=== PATIENT | male | born 1970 | race Caucasian/White ===

== ENCOUNTER 2023-02-04 13:26 | Inpatient (IN) ==
[2023-02-04 13:47] VITALS: BMI 23.3
[2023-02-04] MEDS ORDERED: TORADOL 30 MG VIAL ONE (13:53)
[2023-02-04] MEDS ORDERED: TYLENOL 500 MG TAB EXTRA STRENGTH PO ONE (13:53)
[2023-02-04] MEDS ORDERED: NS 1,000 ML IV 1,000 ML ONE ×2 (13:54→19:08)
--- NOTE | 2023-02-04 14:07 | DR.GENAD ---
HPI Time Seen Time Seen by Provider: 02/04/23 14:04 PCP Primary Care Physician: Christofer HPI Comment HPI Comment: PATIENT IS 52YR OLD MALE WITH HISTORY OF DIABETES AND THROAT CANCER IN ER WITH GENERALIZED BODYACHES, FEVER AND VOMITING SINCE YESTERDAY. HISTORY OF DIABETIC FOOT ULCER ON LEFT 5TH TOE AND FOOT. 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 AREA INFECTED AND RED. Complaint/Symptoms Chief Complaint Doctors Comments: FEVER, CHILLS, BODYACHES AND VOMITING SINCE YESTERDAY. Chief Complaint:: Woke this morning with headache, generalzed aches and body pain head to toe, vomited twice yesterday and once today. Has a trach secondary hx of throat CA COVID-19 Coronavirus risk:travel/contact w/high risk person: No Has patient experienced Coronavirus symptoms: Yes Coronavirus symptoms experienced: Fever Nurses notes reviewed Nurses Notes Review: Yes Source History Provided: Patient and Family Member Mode of Arrival Mode of Arrival: Wheelchair Timing Onset of Chief Complaint: 02/03/23 PMH PMH Past Medical History: Yes Past Medical History: Diabetes, Dyslipidemia and Hypertension Past Medical History Comment: History of Throat CA with trach in place Past Surgical History: Yes Surgical History: Ortho Surgery Past Surgical History Comment: trach Family History History of Family Medical Conditions: Yes Family Medical History: Diabetes Mellitus, Cancer, Coronary Artery Disease and Hypertension Social History Does any household member use tobacco: No Alcohol Use: None Do you use any recreational Drugs:: No Lives With: Spouse Lives Where: Home Travel Risk Coronavirus risk:travel/contact w/high risk person: No Has patient experienced Coronavirus symptoms: Yes Coronavirus symptoms experienced: Fever Infectious screening In the last 2 months have you had wt loss of >10#?: NO Have you had fever, night sweats or hemotysis?: No Have you traveled outside the country in the last 6 months?: No Isolation: Standard ROS Review of Systems Constitutional: Chills, Fever, Weakness and Fatigue Eyes: No Symptoms Reported ENTM: Nose Congestion; negative Nose Discharge Respiratoy: Moist Cough; negative Short of Breath or Wheezing Cardiovascular: No Symptoms Reported; negative Chest Pain Gastrointestinal/Abdominal: No Symptoms Reported, Nausea and Vomiting; negative Abdominal Pain or Diarrhea Genitourinary: No Symptoms Reported; negative Dysuria or Frequency Neurological: Headache and Weakness; negative Dizziness Musculoskeletal: Back Pain (CHRONIC LOWER BACK PAIN BUT WORSE TODAY.) and Muscle Pain Integumentary: Wound (DIABETIC FOOT ULCER LEFT 5TH TOE AND FOOT.) Hematologic/Lymphatic: No Symptoms Reported; negative Easy Bruising Endocrine: No Symptoms Reported; negative Increased Thirst or Increased Urine Psychiatric: No Symptoms Reported All Other Systems: Reviewed and Negative PE Vital Signs Vitals: Temperature 98.3 F Pulse Rate [Brachial] 82 Pulse Rate 92 Respiratory Rate 18 Blood Pressure [Left Arm] 168/96 Blood Pressure 99/57 O2 Sat by Pulse Oximetry 98 General Limitations: No Limitations General Appearance: Alert and In No Apparent Distress Head Head Exam: Normal Inspection and Atraumatic Eyes Eye exam: Normal Appearance; negative Scleral Icterus or Conjunctival Injection ENT ENT Exam: Normal Exam, Normal Oropharynx, Normal External Ear Exam, TM's Normal Bilaterally and Other (USES Moni CONTROL SYSTEM FOR COMMUNICATION.) External Ear Exam: Normal External Inspection; negative Mastoid Tenderness TM/Canal Exam: Bilateral: Normal Nose Exam: Normal Nose Exam Mouth Exam: Normal Inspection Throat Exam: negative Tonsillar Erythema, Tonsillomegaly or Tonsillar Exudate Neck Neck Exam: Normal Inspection and Trachea Midline; negative Tenderness Chest Chest Inspection: Normal Inspection and Symmetric Chest Wall Rise; negative Tenderness Respiratory Respiratory Exam: Normal Lung Sounds Bilat; negative Accessory Muscle Use, Chest Wall Tenderness or Respiratory Distress Respiratory Exam: Bilateral: Rhonchi Cardiovascular Cardiovascular Exam: Regular Rate, Normal Rhythm and Normal Heart Sounds; negative Systolic Murmur or Diastolic Murmur Abdominal Exam Abdominal Exam: Normal Inspection, Normal Bowel Sounds and Soft; negative Tenderness Extremities Extremities Exam: Tenderness (INFECTED DIATETIC FOOT ULCER LLE.) Back Back Exam: Normal Inspection; negative (R) CVA Tenderness or (L) CVA Tenderness Neurologic Neurological Exam: Alert and Oriented X3; negative Motor Sensory Deficit Psychiatric Psychiatric Exam: Normal Affect Skin Skin Exam: Erythema and Other (DIABETIC FOOT ULCER, LT AND INFECTED.) MDM Additional Information Additional Information Obtained From: Old Records Differential Diagnosis Differential Diagnosis: DIABETIC FOOT ULCER, CELLULITIS, FEVER, UTI. COURSE Treatment Treatment: SEE ORDERS DONE WHILE PATIENT WAS IN ER. ROR Labs Reviewed Laboratory Results Reviewed?: Yes Result Diagrams: 02/10/23 05:42 02/10/23 05:42 Laboratory: 02/06/23 11:38 Foot - Left Wound Gram Stain - Final 02/06/23 11:38 Foot - Left Wound Culture - Final Staphylococcus Aureus 02/04/23 14:19 Foot - Left Wound Gram Stain - Final 02/04/23 14:19 Foot - Left Wound Culture - Final Staphylococcus Aureus Acinetobacter Baumanii/Haemoly 02/04/23 14:12 Blood Blood Culture - Final Staphylococcus Aureus 02/04/23 14:00 Blood Blood Culture - Final Staphylococcus Aureus WBC 3.2 X10^3/uL (3.6-10.0) L 02/07/23 05:34 RBC 3.96 X10^6/uL (4.7-6.0) L 02/07/23 05:34 Hgb 11.8 g/dL (13.5-18.0) L 02/07/23 05:34 Hct 33.9 % (42.0-54.0) L 02/07/23 05:34 MCV 85.6 fL (80.0-100.0) 02/07/23 05:34 MCH 29.8 pg (27.0-34.0) 02/07/23 05:34 MCHC 34.8 g/dL (33.0-35.0) 02/07/23 05:34 RDW 13.0 % (11.6-16.5) 02/07/23 05:34 Plt Count 224 X10^3/uL (150.0-450.0) 02/07/23 05:34 Plt Count Comment Adequate (ADEQUATE) 02/04/23 14:12 MPV 7.2 fL (7.4-11.0) L 02/07/23 05:34 Neut % (Auto) 59.1 % (42.0-75.0) 02/07/23 05:34 Lymph % (Auto) 21.4 % (21.0-51.0) 02/07/23 05:34 [place] % (Auto) 14.1 % (0.0-13.0) H 02/07/23 05:34 Eos % (Auto) 4.0 % (0.9-2.9) H 02/07/23 05:34 Baso % (Auto) 1.4 % (0.2-1.0) H 02/07/23 05:34 Neut # (Auto) 1.9 x10^3/uL (2.2-4.8) L 02/07/23 05:34 Lymph # (Auto) 0.7 X10^3/uL (1.3-2.9) L 02/07/23 05:34 [place] # (Auto) 0.5 x10^3/uL (0.3-0.8) 02/07/23 05:34 Eos # (Auto) 0.1 x10^3/uL (0.0-0.2) 02/07/23 05:34 Baso # (Auto) 0.0 X10^3/uL (0.0-0.1) 02/07/23 05:34 Absolute Nucleated RBC 0.1 /100WBC 02/07/23 05:34 Total Counted 100 02/04/23 14:12 Neutrophils % (Manual) 95 % (39-76) H 02/04/23 14:12 Lymphocytes % (Manual) 3 % (13-43) L 02/04/23 14:12 Monocytes % (Manual) 2 % (4-9) L 02/04/23 14:12 Plt Morphology Comment Normal (NORMAL) 02/04/23 14:12 RBC Morphology Normal (NORMAL) 02/04/23 14:12 Sodium 137 mmol/L (136-145) 02/07/23 05:34 Corrected Sodium 139 mmol/L (136-145) 02/07/23 05:34 Potassium 3.9 mmol/L (3.5-5.1) 02/07/23 05:34 Chloride 99 mmol/L (98-107) 02/07/23 05:34 Carbon Dioxide 33.2 mmol/L (21-32) H 02/07/23 05:34 BUN 7 mg/dL (7-18) 02/07/23 05:34 Creatinine 0.84 mg/dL (0.70-1.30) 02/07/23 05:34 Est GFR (MDRD) Af Amer > 60 (>60) 02/07/23 05:34 Est GFR (MDRD) Non-Af > 60 (>60) 02/07/23 05:34 Glucose 187 mg/dL (65-99) H 02/07/23 05:34 POC Glucose (mg/dL) 176 mg/dL (65-99) H 02/07/23 05:10 Lactic Acid 1.0 mmol/L (0.4-2.0) 02/05/23 04:42 Calcium 8.6 mg/dL (8.5-10.1) 02/07/23 05:34 Corrected Calcium 9.7 mg/dL (8.5-10.1) 02/07/23 05:34 Total Bilirubin 0.30 mg/dL (0.2-1.0) 02/07/23 05:34 AST 18 Units/L (15-37) 02/07/23 05:34 ALT 23 Units/L (12-78) 02/07/23 05:34 Alkaline Phosphatase 99 Units/L (46-116) 02/07/23 05:34 Total Protein 6.1 g/dL (6.4-8.2) L 02/07/23 05:34 Albumin 2.6 g/dL (3.4-5.0) L 02/07/23 05:34 Globulin 3.5 g/dL (2.5-4.5) 02/07/23 05:34 Albumin/Globulin Ratio 0.7 Ratio (1.1-2.1) L 02/07/23 05:34 Specimen Type Clean catch urine 02/04/23 14:36 Urine Color Yellow (YELLOW) 02/04/23 14:36 Urine Appearance Clear (CLEAR) 02/04/23 14:36 Urine pH 5.0 (5.0 - 8.0) 02/04/23 14:36 Ur Specific [place] 1.015 (1.000-1.030) 02/04/23 14:36 Urine Protein 2+ (NEGATIVE) 02/04/23 14:36 Urine Glucose (UA) 4+ (NEGATIVE) 02/04/23 14:36 Urine Ketones 4+ (NEGATIVE) 02/04/23 14:36 Urine Blood 2+ (NEGATIVE) 02/04/23 14:36 Urine Nitrite Negative (NEGATIVE) 02/04/23 14:36 Urine Bilirubin Negative (NEGATIVE) 02/04/23 14:36 Urine Urobilinogen Normal (NORMAL) 02/04/23 14:36 Ur Leukocyte Esterase Negative (NEGATIVE) 02/04/23 14:36 Urine RBC None seen /HPF (0-3) 02/04/23 14:36 Urine WBC None seen /HPF (0-5) 02/04/23 14:36 Ur Squamous Epith Cells Negative /HPF (NEGATIVE) 02/04/23 14:36 Urine Bacteria Negative /HPF (NEGATIVE) 02/04/23 14:36 Ur Culture Indicated? No/not indicated 02/04/23 14:36 Acetone, Semi-Quant Small (NEGATIVE) H 02/04/23 14:12 SARS-CoV-2 (PCR) Negative (NEGATIVE) 02/04/23 14:49 Influenza Type A (PCR) Negative (NEGATIVE) 02/04/23 14:49 Influenza Type B (PCR) Negative (NEGATIVE) 02/04/23 14:49 RSV (PCR) Negative (NEGATIVE) 02/04/23 14:49 Tissue Pathology See comment. 02/06/23 11:38 XRAY XRAY Interpreted by: Radiologist (REPORT NOTED) and Self Opioid Opioid Risk Tool Age (Tylor box if 16-45): No History of Preadolescent Sexual Abuse: No Total: 0 Total Score Risk Category: Low Risk Copyright: Сергей ROWLAND predicting aberrant behaviors Discharge Plan Diagnosis Discharge Problem: Cellulitis, Diabetic foot ulcer, Fever in adult Discharge Plan Patient Disposition: 09 ADMITTED INPATIENT Condition: Stable
[2023-02-04] MEDS ORDERED: TYLENOL 500 MG TAB EXTRA STRENGTH PO STA (14:11)
[2023-02-04] MEDS ORDERED: NS 1,000 ML IV 1,000 ML IV ONE ×2 (14:11→14:19)
[2023-02-04] MEDS ORDERED: TORADOL 30 MG VIAL IVP ONE (14:11)
[2023-02-04 14:37] LABS: BASOPHILS % (AUTO) 0.2 % (0.2-1.0); HEMATOCRIT 41.3 % (42.0-54.0); HEMOGLOBIN 13.9 g/dL (13.5-18.0); LYMPHOCYTES # (AUTO) 0.2 X10^3/uL (1.3-2.9); LYMPHOCYTES % (AUTO) 2.1 % (21.0-51.0); MEAN CORPUSCULAR HEMOGLOBIN 29.3 pg (27.0-34.0); MEAN CORPUSCULAR HGB CONC 33.7 g/dL (33.0-35.0); MEAN PLATELET VOLUME 6.9 fL (7.4-11.0); MONOCYTES # (AUTO) 0.3 x10^3/uL (0.3-0.8); MONOCYTES % (AUTO) 3.4 % (0.0-13.0); NEUTROPHILS # (AUTO) 8.5 x10^3/uL (2.2-4.8); NEUTROPHILS % (AUTO) 94.3 % (42.0-75.0); RED BLOOD COUNT 4.75 X10^6/uL (4.7-6.0); RED CELL DISTRIBUTION WIDTH 13.2 % (11.6-16.5)
[2023-02-04 14:46] LABS: BILIRUBIN,URINE NEGATIVE (NEGATIVE); BLOOD/HEMOGLOBIN,URINE 2+ (NEGATIVE); GLUCOSE, URINE 4+ (NEGATIVE); KETONES,URINE 4+ (NEGATIVE); LEUKOCYTE ESTERASE ,URINE NEGATIVE (NEGATIVE); NITRITES,URINE NEGATIVE (NEGATIVE); PROTEIN,URINE 2+ (NEGATIVE); UROBILINOGEN,URINE NORMAL (NORMAL)
[2023-02-04 14:47] LABS: APPEARANCE,URINE CLEAR (CLEAR); COLOR,URINE YELLOW (YELLOW)
[2023-02-04 14:48] LABS: ALANINE AMINOTRANSFERASE 18 Units/L (12-78); ALBUMIN 3.7 g/dL (3.4-5.0); ALKALINE PHOSPHATASE 176 Units/L (46-116); ASPARTATE AMINO TRANSFERASE 10 Units/L (15-37); BLOOD UREA NITROGEN 16 mg/dL (7-18); CARBON DIOXIDE 25.6 mmol/L (21-32); CHLORIDE 93 mmol/L (98-107); COR NA(FOR HYPERGLY) 136 mmol/L (136-145); SODIUM 131 mmol/L (136-145); TOTAL PROTEIN 7.7 g/dL (6.4-8.2); eGFR NON BLACK RACES > 60 (>60)
[2023-02-04 14:52] LABS: BACTERIA,URINE NEGATIVE /HPF (NEGATIVE); RBC,URINE NONE SEEN /HPF (0-3); SQUAMOUS EPITHELIAL CELL,UR NEGATIVE /HPF (NEGATIVE)
[2023-02-04 15:01] LABS: PLATELET MORPHOLOGY COMMENT NORMAL (NORMAL)
[2023-02-04] MEDS ORDERED: ZOSYN VIAL 3.375 GRAMS 3.375 G in NS 100 ML IV 100 ML IV ONE (15:13)
[2023-02-04] MEDS ORDERED: ZOSYN VIAL 3.375 GRAMS IV ONE ×2 (15:16→20:32)
[2023-02-04] MEDS ORDERED: ZOFRAN INJ 4 MG VIAL IVP ONE (15:17)
[2023-02-04] MEDS ORDERED: MORPHINE SULFATE INJ 4 MG IVP ONE (15:17)
[2023-02-04] MEDS ORDERED: MORPHINE SULFATE INJ 4 MG ONE (15:24)
[2023-02-04] MEDS ORDERED: ZOFRAN INJ 4 MG VIAL ONE (15:24)
[2023-02-04] MEDS ORDERED: ZOFRAN TAB 4 MG PO PRN (17:28)
[2023-02-04] MEDS ORDERED: CLEOCIN VIAL 600 MG 600 MG in D5W 50 ML IV 50 ML IV SCH (18:00)
[2023-02-04] MEDS: NovoLIN R (or HumuLIN R) SUBCUT PRN (18:01)
[2023-02-04] MEDS: CLEOCIN 300 MG IV PREMIX 300 MG/50 ML BAG IV SCH ×2 (19:31→21:25)
[2023-02-04] MEDS ORDERED: NS 100 ML IV 100 ML ONE (20:33)
[2023-02-04] MEDS ORDERED: ZOSYN VIAL 4.5 GRAMS IV ONE (20:36)
[2023-02-04] MEDS: ZESTRIL TAB 10 MG PO SCH (20:58)
[2023-02-04] MEDS: LIPITOR TAB 10 MG PO SCH (20:58)
[2023-02-04] MEDS: SNACK - Diabetic Appropriate PO SCH (20:59)
[2023-02-04] MEDS: LANTUS SC SCH (20:59)
[2023-02-04] MEDS: ZOSYN VIAL 4.5 GRAMS 4.5 G in NS 100 ML IV + SPIKE MINIBAG* 100 ML IV SCH (21:00)
[2023-02-04] MEDS: MORPHINE SULFATE INJ 4 MG IVP PRN (21:25)
[2023-02-04] MEDS: BACTROBAN TOPICAL OINT EXT SCH (21:25)
[2023-02-04] MEDS ORDERED: CATAPRES TAB 0.1 MG PO ONE (23:49)
[2023-02-05] MEDS: NORCO 5/325 MG TAB PO PRN ×4 (00:21→20:48)
--- NOTE | 2023-02-05 00:25 | EKG ---
Test Reason : HTN Protocol Blood Pressure : */* mmHG Vent. Rate : 116 BPM Atrial Rate : 116 BPM P-R Int : 166 ms QRS Dur : 84 ms QT Int : 314 ms P-R-T Axes : 37 48 66 degrees QTc Int : 436 ms Sinus tachycardia Otherwise normal ECG No previous ECGs available Confirmed by Eladio Whittaker ([id number]) on 02/06/2023 7:42:49 AM Referred By: Confirmed By: Eladio Whittaker
[2023-02-05] MEDS ORDERED: TYLENOL 325 MG TAB PO PRN (01:15)
[2023-02-05 05:02] LABS: BASOPHILS % (AUTO) 0.6 % (0.2-1.0); EOSINOPHILS % (AUTO) 0.1 % (0.9-2.9); HEMATOCRIT 32.5 % (42.0-54.0); LYMPHOCYTES # (AUTO) 0.3 X10^3/uL (1.3-2.9); MEAN CORPUSCULAR HEMOGLOBIN 29.7 pg (27.0-34.0); MEAN CORPUSCULAR HGB CONC 34.5 g/dL (33.0-35.0); MONOCYTES # (AUTO) 0.3 x10^3/uL (0.3-0.8); MONOCYTES % (AUTO) 4.9 % (0.0-13.0); NEUTROPHILS % (AUTO) 89.4 % (42.0-75.0); RED BLOOD COUNT 3.78 X10^6/uL (4.7-6.0); WHITE BLOOD COUNT 5.6 X10^3/uL (3.6-10.0)
[2023-02-05 05:11] LABS: HEMOGLOBIN 11.2 g/dL (13.5-18.0)
[2023-02-05 05:14] LABS: ALBUMIN 2.5 g/dL (3.4-5.0); CALCIUM 7.8 mg/dL (8.5-10.1); CARBON DIOXIDE 27.3 mmol/L (21-32); CREATININE 1.63 mg/dL (0.70-1.30); TOTAL PROTEIN 5.6 g/dL (6.4-8.2)
[2023-02-05] MEDS: CLEOCIN 300 MG IV PREMIX 300 MG/50 ML BAG IV SCH ×3 (05:15→21:00)
[2023-02-05] MEDS: BACTROBAN TOPICAL OINT EXT SCH ×3 (05:16→21:42)
[2023-02-05] MEDS ORDERED: NS 100 ML IV 100 ML ONE (05:23)
[2023-02-05] MEDS: ZOSYN VIAL 4.5 GRAMS 4.5 G in NS 100 ML IV + SPIKE MINIBAG* 100 ML IV SCH (05:42)
[2023-02-05] MEDS: NovoLIN R (or HumuLIN R) SUBCUT PRN ×2 (05:42→16:38)
[2023-02-05] MEDS: ZESTRIL TAB 10 MG PO SCH ×2 (09:32→20:29)
--- NOTE | 2023-02-05 11:27 | DR.H&P ---
H&P History & Physical for Day of: H&P Date: 02/05/23 Chief Complaint Chief Complaint: Left foot pain Allergies Allergies Allergy/AdvReac Type Severity Reaction Status Date / Time vancomycin AdvReac Verified 02/04/23 15:12 History of Present Illness History of Present Illness: Pt is a 52 year old male past medical history of Diabetes mellitus, Hyperlipidemia, Hypertension, presenting with left foot pain. He reports that he has a diabetic ulcer that has been followed up with [facility]ound clinic but has not been improving and recently has been draining more. Denies fevers, chills. Labs/imaging: Wbc 5.6, Hgb 11.2, Plt 198, Na 130, K 4.8, Creatinine 1.63, Glucose 362, UA negative, Wound culture pending, XR left foot: advanced chronic changes, soft tissue swelling, no sign of osteomyelitis. Pt was started on antibiotics IV clindamycin and IV zosyn. Will consult general surgery-Dr Moreno for further evaluation. Continue current treatment and follow up labs in the morning. Past Medical History Past Medical History: Diabetes, Dyslipidemia and Hypertension Past Surgical History Surgical History: Ortho Surgery Family History Family Medical History: Cancer, [place], Heart Failure and Hypertension Social History Does patient currently use any type of tobacco product: Yes Have you used tobacco products in the last 12 months: Yes Type of Tobacco Use: Smokeless Does any household member use tobacco: No Alcohol Use: DAILY Drug Use: None Medications Home Medications: vancomycin Adverse Reaction (Verified 02/04/23 15:12) CONTINUE taking the following medications atorvastatin 10 mg tablet 1 tab PO QPM 02/04/23 [History] insulin aspart U-100 100 unit/mL (3 mL) subcutaneous pen (Novolog FlexPen U-100 Insulin aspart) See Rx Instructions .Route .COMPLEX 02/04/23 [History] insulin glargine 100 unit/mL (3 mL) subcutaneous pen (Lantus Solostar U-100 Insulin) 30 unit subcut QPM 02/04/23 [History] levothyroxine 125 mcg tablet 1 tab PO QDAY 02/04/23 [History] lisinopril 10 mg tablet 1 tab PO BID 02/04/23 [History] lisinopril 20 mg tablet 1 tab PO QDAY 02/04/23 [History] mupirocin 2 % topical ointment 1 ea topical TID 02/04/23 [History] pen needle, diabetic 31 gauge x 3/16" (Sure Comfort Pen Needle) 02/04/23 [History] pen needle, diabetic 32 gauge x 5/32" (Sure Comfort Pen Needle) 02/04/23 [History] Labs Result Diagrams: 02/05/23 04:42 02/05/23 04:42 Labs: 02/04/23 14:19 Foot - Left Wound Gram Stain - Final 02/04/23 14:19 Foot - Left Wound Culture - Preliminary Laboratory WBC 5.6 X10^3/uL (3.6-10.0) 02/05/23 04:42 RBC 3.78 X10^6/uL (4.7-6.0) L 02/05/23 04:42 Hgb 11.2 g/dL (13.5-18.0) L D 02/05/23 04:42 Hct 32.5 % (42.0-54.0) L 02/05/23 04:42 MCV 86.0 fL (80.0-100.0) 02/05/23 04:42 MCH 29.7 pg (27.0-34.0) 02/05/23 04:42 MCHC 34.5 g/dL (33.0-35.0) 02/05/23 04:42 RDW 13.0 % (11.6-16.5) 02/05/23 04:42 Plt Count 198 X10^3/uL (150.0-450.0) 02/05/23 04:42 Plt Count Comment Adequate (ADEQUATE) 02/04/23 14:12 MPV 7.0 fL (7.4-11.0) L 02/05/23 04:42 Neut % (Auto) 89.4 % (42.0-75.0) H 02/05/23 04:42 Lymph % (Auto) 5.0 % (21.0-51.0) L 02/05/23 04:42 [place] % (Auto) 4.9 % (0.0-13.0) 02/05/23 04:42 Eos % (Auto) 0.1 % (0.9-2.9) L 02/05/23 04:42 Baso % (Auto) 0.6 % (0.2-1.0) 02/05/23 04:42 Neut # (Auto) 5.0 x10^3/uL (2.2-4.8) H 02/05/23 04:42 Lymph # (Auto) 0.3 X10^3/uL (1.3-2.9) L 02/05/23 04:42 [place] # (Auto) 0.3 x10^3/uL (0.3-0.8) 02/05/23 04:42 Eos # (Auto) 0.0 x10^3/uL (0.0-0.2) 02/05/23 04:42 Baso # (Auto) 0.0 X10^3/uL (0.0-0.1) 02/05/23 04:42 Absolute Nucleated RBC 0.0 /100WBC 02/05/23 04:42 Total Counted 100 02/04/23 14:12 Neutrophils % (Manual) 95 % (39-76) H 02/04/23 14:12 Lymphocytes % (Manual) 3 % (13-43) L 02/04/23 14:12 Monocytes % (Manual) 2 % (4-9) L 02/04/23 14:12 Plt Morphology Comment Normal (NORMAL) 02/04/23 14:12 RBC Morphology Normal (NORMAL) 02/04/23 14:12 Sodium 130 mmol/L (136-145) L 02/05/23 04:42 Corrected Sodium 136 mmol/L (136-145) 02/05/23 04:42 Potassium 4.8 mmol/L (3.5-5.1) 02/05/23 04:42 Chloride 96 mmol/L (98-107) L 02/05/23 04:42 Carbon Dioxide 27.3 mmol/L (21-32) 02/05/23 04:42 BUN 24 mg/dL (7-18) H 02/05/23 04:42 Creatinine 1.63 mg/dL (0.70-1.30) H 02/05/23 04:42 Est GFR (MDRD) Af Amer 58 (>60) L 02/05/23 04:42 Est GFR (MDRD) Non-Af 48 (>60) L 02/05/23 04:42 Glucose 362 mg/dL (65-99) H 02/05/23 04:42 POC Glucose (mg/dL) 193 mg/dL (65-99) H 02/05/23 07:18 Lactic Acid 1.0 mmol/L (0.4-2.0) 02/05/23 04:42 Calcium 7.8 mg/dL (8.5-10.1) L 02/05/23 04:42 Corrected Calcium 9.0 mg/dL (8.5-10.1) 02/05/23 04:42 Total Bilirubin 0.60 mg/dL (0.2-1.0) 02/05/23 04:42 AST 15 Units/L (15-37) 02/05/23 04:42 ALT 16 Units/L (12-78) 02/05/23 04:42 Alkaline Phosphatase 119 Units/L (46-116) H 02/05/23 04:42 Total Protein 5.6 g/dL (6.4-8.2) L 02/05/23 04:42 Albumin 2.5 g/dL (3.4-5.0) L 02/05/23 04:42 Globulin 3.1 g/dL (2.5-4.5) 02/05/23 04:42 Albumin/Globulin Ratio 0.8 Ratio (1.1-2.1) L 02/05/23 04:42 Specimen Type Clean catch urine 02/04/23 14:36 Urine Color Yellow (YELLOW) 02/04/23 14:36 Urine Appearance Clear (CLEAR) 02/04/23 14:36 Urine pH 5.0 (5.0 - 8.0) 02/04/23 14:36 Ur Specific [place] 1.015 (1.000-1.030) 02/04/23 14:36 Urine Protein 2+ (NEGATIVE) 02/04/23 14:36 Urine Glucose (UA) 4+ (NEGATIVE) 02/04/23 14:36 Urine Ketones 4+ (NEGATIVE) 02/04/23 14:36 Urine Blood 2+ (NEGATIVE) 02/04/23 14:36 Urine Nitrite Negative (NEGATIVE) 02/04/23 14:36 Urine Bilirubin Negative (NEGATIVE) 02/04/23 14:36 Urine Urobilinogen Normal (NORMAL) 02/04/23 14:36 Ur Leukocyte Esterase Negative (NEGATIVE) 02/04/23 14:36 Urine RBC None seen /HPF (0-3) 02/04/23 14:36 Urine WBC None seen /HPF (0-5) 02/04/23 14:36 Ur Squamous Epith Cells Negative /HPF (NEGATIVE) 02/04/23 14:36 Urine Bacteria Negative /HPF (NEGATIVE) 02/04/23 14:36 Ur Culture Indicated? No/not indicated 02/04/23 14:36 Acetone, Semi-Quant Small (NEGATIVE) H 02/04/23 14:12 SARS-CoV-2 (PCR) Negative (NEGATIVE) 02/04/23 14:49 Influenza Type A (PCR) Negative (NEGATIVE) 02/04/23 14:49 Influenza Type B (PCR) Negative (NEGATIVE) 02/04/23 14:49 RSV (PCR) Negative (NEGATIVE) 02/04/23 14:49 Review of Systems Constitutional: No Symptoms Reported Eyes: No Symptoms Reported ENT: No Symptoms Reported Respiratory: No Symptoms Reported Cardiovascular: No Symptoms Reported Gastrointestinal: No Symptoms Reported Genitourinary: No Symptoms Reported Musculoskeletal: Foot Pain (draining wound) Skin: No Symptoms Reported Neurological: No Symptoms Reported Physical Exam Vital Signs: Temperature 98.3 F Pulse Rate [Brachial] 84 Pulse Rate 92 Respiratory Rate 18 Blood Pressure [Left Arm] 92/54 Blood Pressure 99/57 O2 Sat by Pulse Oximetry 98 Oriented: Normal Eyes: Normal Ear: Normal Nose: Normal Throat: Normal Respiratory: Clear Throughout Cardiovascular: Normal : Normal Auscultation: Bowel Sounds: Normal Palpation: Normal Tenderness: Normal Skin: Normal Musculoskeletal: Left and Foot (draining diabetic ulcer left plantar side with surrounding necrotic tissue) Psychiatric: Normal Mood Description: Calm and Appropriate Affect: Normal Speech Pattern: Clear and Appropriate Assessment/Plan (1) Diabetic ulcer of left foot: Status: Acute Plan: IV antibiotics, consult general surgery. Review H&P Reviewed: Yes Patient was examined?: Yes
[2023-02-05] MEDS: NS 1,000 ML IV 1,000 ML IV SCH (13:25)
[2023-02-05] MEDS: ZOSYN VIAL 4.5 GRAMS 4.5 G in NS 100 ML IV 100 ML IV SCH ×2 (14:25→21:42)
[2023-02-05] MEDS: SNACK - Diabetic Appropriate PO SCH (20:29)
[2023-02-05] MEDS: LIPITOR TAB 10 MG PO SCH (20:29)
[2023-02-05] MEDS: LANTUS SC SCH (20:37)
[2023-02-06] MEDS: NS 1,000 ML IV 1,000 ML IV SCH ×4 (03:05→17:24)
[2023-02-06] MEDS: CLEOCIN 300 MG IV PREMIX 300 MG/50 ML BAG IV SCH (05:00)
[2023-02-06] MEDS: BACTROBAN TOPICAL OINT EXT SCH ×4 (05:33→21:08)
[2023-02-06] MEDS: ZOSYN VIAL 4.5 GRAMS 4.5 G in NS 100 ML IV 100 ML IV SCH (05:34)
[2023-02-06 05:49] LABS: BASOPHILS % (AUTO) 0.8 % (0.2-1.0); EOSINOPHILS # (AUTO) 0.2 x10^3/uL (0.0-0.2); EOSINOPHILS % (AUTO) 5.8 % (0.9-2.9); HEMATOCRIT 33.6 % (42.0-54.0); HEMOGLOBIN 11.6 g/dL (13.5-18.0); LYMPHOCYTES # (AUTO) 0.5 X10^3/uL (1.3-2.9); LYMPHOCYTES % (AUTO) 14.8 % (21.0-51.0); MEAN CORPUSCULAR HEMOGLOBIN 29.7 pg (27.0-34.0); MEAN CORPUSCULAR HGB CONC 34.4 g/dL (33.0-35.0); MEAN CORPUSCULAR VOLUME 86.4 fL (80.0-100.0); MEAN PLATELET VOLUME 7.1 fL (7.4-11.0); MONOCYTES # (AUTO) 0.3 x10^3/uL (0.3-0.8); MONOCYTES % (AUTO) 10.1 % (0.0-13.0); NEUTROPHILS # (AUTO) 2.1 x10^3/uL (2.2-4.8); NEUTROPHILS % (AUTO) 68.5 % (42.0-75.0); RED BLOOD COUNT 3.89 X10^6/uL (4.7-6.0); RED CELL DISTRIBUTION WIDTH 13.2 % (11.6-16.5); WHITE BLOOD COUNT 3.1 X10^3/uL (3.6-10.0)
[2023-02-06 06:01] LABS: ALANINE AMINOTRANSFERASE 20 Units/L (12-78); ALBUMIN 2.4 g/dL (3.4-5.0); ALKALINE PHOSPHATASE 101 Units/L (46-116); ASPARTATE AMINO TRANSFERASE 18 Units/L (15-37); BLOOD UREA NITROGEN 13 mg/dL (7-18); CALCIUM 8.1 mg/dL (8.5-10.1); CARBON DIOXIDE 29.4 mmol/L (21-32); CHLORIDE 97 mmol/L (98-107); COR CA(FOR HYPOALB) 9.4 mg/dL (8.5-10.1); COR NA(FOR HYPERGLY) 136 mmol/L (136-145); CREATININE 1.03 mg/dL (0.70-1.30); SODIUM 132 mmol/L (136-145); TOTAL PROTEIN 5.8 g/dL (6.4-8.2); eGFR NON BLACK RACES > 60 (>60)
[2023-02-06] MEDS: ZESTRIL TAB 10 MG PO SCH ×3 (08:24→21:07)
--- NOTE | 2023-02-06 09:38 | RAD ---
HISTORYPRE OP DEBRIDEMENTSTUDYCHEST, 1 VIEWCOMPARISONNoneTECHNIQUEPA or AP view of the chestFINDINGSThe cardiac and mediastinal contours are within normal limits. The lungs are clear without focal consolidation or segmental collapse. Left costophrenic sulcus is not completely image. No visualized pleural effusion or pneumothorax.IMPRESSIONNo acute pulmonary process within the field of view.Electronically signed by: Virgil Cisneros (Feb 06, 2023 09:36:39)
--- NOTE | 2023-02-06 10:19 | RAD ---
HISTORYpain, ulcer Relevant Clinical InformationSTUDYFOOT, LEFTCOMPARISONNoneFINDINGSPrior amputation of the great toe at the 1st metatarsophalangeal articulation. Chronic appearing hammertoe deformities of digits 2 through 5. Soft tissue swelling of the distal foot. No periosteal reaction or cortical destruction.IMPRESSIONAdvanced chronic changes. Soft tissue swelling. No radiographic sign of osteomyelitis. Radiographic findings can lag clinical changes.Electronically signed by: Matt Faria (Feb 04, 2023 19:28:39)
[2023-02-06] MEDS ORDERED: ZOFRAN INJ 4 MG VIAL ONE (10:51)
[2023-02-06] MEDS ORDERED: DIPRIVAN VIAL 20 ML ONE (10:51)
[2023-02-06] MEDS ORDERED: PEPCID 20 MG VIAL ONE (10:51)
[2023-02-06] MEDS ORDERED: XYLOCAINE 2 % (PLAIN) ONE ×2 (10:51→11:18)
[2023-02-06] MEDS ORDERED: VERSED ONE (10:51)
[2023-02-06] MEDS: LEVAQUIN PREMIX IV 750 MG 750 MG/150 ML BAG IV SCH (11:00)
[2023-02-06] MEDS ORDERED: ANCEF VIAL 1 GRAM ONE (11:02)
[2023-02-06] MEDS ORDERED: NS 1,000 ML IV 1,000 ML ONE (11:02)
[2023-02-06] MEDS ORDERED: NS 100 ML IV 100 ML ONE (11:02)
[2023-02-06] MEDS ORDERED: LEVAQUIN PREMIX IV 500 MG 500 MG/100 ML BAG IV ONE (11:06)
[2023-02-06] MEDS ORDERED: BETADINE SOLN ONE (11:08)
[2023-02-06] MEDS ORDERED: POLYMYXIN B SULFATE ONE (11:08)
[2023-02-06] MEDS ORDERED: FENTANYL VIAL INJ 100 mcg ONE (11:11)
[2023-02-06] MEDS ORDERED: KETAMINE HCL ONE (11:18)
[2023-02-06] MEDS ORDERED: EPHEDRINE SULFATE INJ ONE (11:44)
[2023-02-06] MEDS: NovoLIN R (or HumuLIN R) SUBCUT PRN (16:37)
[2023-02-06] MEDS ORDERED: CATAPRES TAB 0.1 MG PO ONE (17:13)
[2023-02-06] MEDS: LIPITOR TAB 10 MG PO SCH ×2 (19:38→21:07)
[2023-02-06] MEDS: SNACK - Diabetic Appropriate PO SCH (19:54)
[2023-02-06] MEDS: LANTUS SC SCH (21:09)
[2023-02-07] MEDS: NS 1,000 ML IV 1,000 ML IV SCH ×3 (01:11→20:30)
[2023-02-07] MEDS: BACTROBAN TOPICAL OINT EXT SCH ×3 (05:17→21:52)
[2023-02-07 06:30] LABS: BASOPHILS % (AUTO) 1.4 % (0.2-1.0); EOSINOPHILS # (AUTO) 0.1 x10^3/uL (0.0-0.2); HEMATOCRIT 33.9 % (42.0-54.0); HEMOGLOBIN 11.8 g/dL (13.5-18.0); LYMPHOCYTES # (AUTO) 0.7 X10^3/uL (1.3-2.9); LYMPHOCYTES % (AUTO) 21.4 % (21.0-51.0); MEAN CORPUSCULAR HEMOGLOBIN 29.8 pg (27.0-34.0); MEAN CORPUSCULAR HGB CONC 34.8 g/dL (33.0-35.0); MEAN CORPUSCULAR VOLUME 85.6 fL (80.0-100.0); MEAN PLATELET VOLUME 7.2 fL (7.4-11.0); MONOCYTES # (AUTO) 0.5 x10^3/uL (0.3-0.8); MONOCYTES % (AUTO) 14.1 % (0.0-13.0); NEUTROPHILS # (AUTO) 1.9 x10^3/uL (2.2-4.8); NEUTROPHILS % (AUTO) 59.1 % (42.0-75.0); RED BLOOD COUNT 3.96 X10^6/uL (4.7-6.0); WHITE BLOOD COUNT 3.2 X10^3/uL (3.6-10.0)
[2023-02-07 06:42] LABS: ALANINE AMINOTRANSFERASE 23 Units/L (12-78); ALBUMIN 2.6 g/dL (3.4-5.0); ALKALINE PHOSPHATASE 99 Units/L (46-116); ASPARTATE AMINO TRANSFERASE 18 Units/L (15-37); BLOOD UREA NITROGEN 7 mg/dL (7-18); CALCIUM 8.6 mg/dL (8.5-10.1); CARBON DIOXIDE 33.2 mmol/L (21-32); CHLORIDE 99 mmol/L (98-107); COR CA(FOR HYPOALB) 9.7 mg/dL (8.5-10.1); COR NA(FOR HYPERGLY) 139 mmol/L (136-145); CREATININE 0.84 mg/dL (0.70-1.30); SODIUM 137 mmol/L (136-145); TOTAL PROTEIN 6.1 g/dL (6.4-8.2); eGFR NON BLACK RACES > 60 (>60)
[2023-02-07] MEDS: LEVAQUIN PREMIX IV 750 MG 750 MG/150 ML BAG IV SCH (09:00)
[2023-02-07] MEDS: ZESTRIL TAB 10 MG PO SCH ×2 (09:00→20:25)
[2023-02-07] MEDS: MORPHINE SULFATE INJ 4 MG IVP PRN (12:15)
[2023-02-07] MEDS: NovoLIN R (or HumuLIN R) SUBCUT PRN ×2 (12:16→17:09)
[2023-02-07] MEDS ORDERED: CATAPRES TAB 0.1 MG PO ONE (15:53)
--- NOTE | 2023-02-07 18:20 | PCM.PROG ---
Progress Note - Progress Note for Day of Date of Exam: 02/07/23 - Subjective Subjective: This is a 52-year-old male who was admitted with several medical issues including infected diabetic foot ulcer, left side. The patient has advanced peripheral diabetic neuropathy. He has Charcot disease with deformity of the toes. The ulcer was large and draining purulent material. - Past Medical Family Social History Past Med/Fam/Surg Hx: No changes since H&P Allergies: Allergies vancomycin Adverse Reaction (Verified 02/04/23 15:12) - Review of Systems ROS: No change since H&P - Vital Signs and I&O's Vital Signs: Temperature 98.5 F Pulse Rate [Brachial] 72 Pulse Rate 92 Respiratory Rate 18 Blood Pressure [Left Arm] 132/69 Blood Pressure 99/57 O2 Sat by Pulse Oximetry 99 Intake and Output: Intake & Output 02/05/23 02/06/23 02/07/23 02/08/23 11:59 11:59 11:59 11:59 Intake Total 1444 / 1444 1898 / 1898 3269 / 3269 1500 / 1500 Output Total 1000 / 1000 Balance 1444 / 1444 1898 / 1898 2269 / 2269 1500 / 1500 - Physical Exam Oriented: Normal Eyes: Normal Ear: Normal Nose: Normal Throat: Normal, Other (trach in place) Respiratory: Diminished Cardiovascular: Normal : Normal Auscultation: Bowel Sounds: Normal Tenderness: Normal Skin: Normal Musculoskeletal: Left, Foot (left foot wound, with thick bulky dressing intact) Psychiatric: Normal Mood Description: Calm, Appropriate Affect: Normal Speech Pattern: Clear, Appropriate - Laboratory and Diagnostics Result Diagrams: 02/07/23 05:34 02/07/23 05:34 Labs: 02/06/23 11:38 Foot - Left Wound Gram Stain - Final 02/06/23 11:38 Foot - Left Wound Culture - Preliminary 02/04/23 14:19 Foot - Left Wound Gram Stain - Final 02/04/23 14:19 Foot - Left Wound Culture - Final Staphylococcus Aureus Acinetobacter Baumanii/Haemoly 02/04/23 14:12 Blood Blood Culture - Final Staphylococcus Aureus 02/04/23 14:00 Blood Blood Culture - Final Staphylococcus Aureus Laboratory WBC 3.2 X10^3/uL (3.6-10.0) L 02/07/23 05:34 RBC 3.96 X10^6/uL (4.7-6.0) L 02/07/23 05:34 Hgb 11.8 g/dL (13.5-18.0) L 02/07/23 05:34 Hct 33.9 % (42.0-54.0) L 02/07/23 05:34 MCV 85.6 fL (80.0-100.0) 02/07/23 05:34 MCH 29.8 pg (27.0-34.0) 02/07/23 05:34 MCHC 34.8 g/dL (33.0-35.0) 02/07/23 05:34 RDW 13.0 % (11.6-16.5) 02/07/23 05:34 Plt Count 224 X10^3/uL (150.0-450.0) 02/07/23 05:34 Plt Count Comment Adequate (ADEQUATE) 02/04/23 14:12 MPV 7.2 fL (7.4-11.0) L 02/07/23 05:34 Neut % (Auto) 59.1 % (42.0-75.0) 02/07/23 05:34 Lymph % (Auto) 21.4 % (21.0-51.0) 02/07/23 05:34 [place] % (Auto) 14.1 % (0.0-13.0) H 02/07/23 05:34 Eos % (Auto) 4.0 % (0.9-2.9) H 02/07/23 05:34 Baso % (Auto) 1.4 % (0.2-1.0) H 02/07/23 05:34 Neut # (Auto) 1.9 x10^3/uL (2.2-4.8) L 02/07/23 05:34 Lymph # (Auto) 0.7 X10^3/uL (1.3-2.9) L 02/07/23 05:34 [place] # (Auto) 0.5 x10^3/uL (0.3-0.8) 02/07/23 05:34 Eos # (Auto) 0.1 x10^3/uL (0.0-0.2) 02/07/23 05:34 Baso # (Auto) 0.0 X10^3/uL (0.0-0.1) 02/07/23 05:34 Absolute Nucleated RBC 0.1 /100WBC 02/07/23 05:34 Total Counted 100 02/04/23 14:12 Neutrophils % (Manual) 95 % (39-76) H 02/04/23 14:12 Lymphocytes % (Manual) 3 % (13-43) L 02/04/23 14:12 Monocytes % (Manual) 2 % (4-9) L 02/04/23 14:12 Plt Morphology Comment Normal (NORMAL) 02/04/23 14:12 RBC Morphology Normal (NORMAL) 02/04/23 14:12 Sodium 137 mmol/L (136-145) 02/07/23 05:34 Corrected Sodium 139 mmol/L (136-145) 02/07/23 05:34 Potassium 3.9 mmol/L (3.5-5.1) 02/07/23 05:34 Chloride 99 mmol/L (98-107) 02/07/23 05:34 Carbon Dioxide 33.2 mmol/L (21-32) H 02/07/23 05:34 BUN 7 mg/dL (7-18) 02/07/23 05:34 Creatinine 0.84 mg/dL (0.70-1.30) 02/07/23 05:34 Est GFR (MDRD) Af Amer > 60 (>60) 02/07/23 05:34 Est GFR (MDRD) Non-Af > 60 (>60) 02/07/23 05:34 Glucose 187 mg/dL (65-99) H 02/07/23 05:34 POC Glucose (mg/dL) 195 mg/dL (65-99) H 02/07/23 16:43 Lactic Acid 1.0 mmol/L (0.4-2.0) 02/05/23 04:42 Calcium 8.6 mg/dL (8.5-10.1) 02/07/23 05:34 Corrected Calcium 9.7 mg/dL (8.5-10.1) 02/07/23 05:34 Total Bilirubin 0.30 mg/dL (0.2-1.0) 02/07/23 05:34 AST 18 Units/L (15-37) 02/07/23 05:34 ALT 23 Units/L (12-78) 02/07/23 05:34 Alkaline Phosphatase 99 Units/L (46-116) 02/07/23 05:34 Total Protein 6.1 g/dL (6.4-8.2) L 02/07/23 05:34 Albumin 2.6 g/dL (3.4-5.0) L 02/07/23 05:34 Globulin 3.5 g/dL (2.5-4.5) 02/07/23 05:34 Albumin/Globulin Ratio 0.7 Ratio (1.1-2.1) L 02/07/23 05:34 Specimen Type Clean catch urine 02/04/23 14:36 Urine Color Yellow (YELLOW) 02/04/23 14:36 Urine Appearance Clear (CLEAR) 02/04/23 14:36 Urine pH 5.0 (5.0 - 8.0) 02/04/23 14:36 Ur Specific [place] 1.015 (1.000-1.030) 02/04/23 14:36 Urine Protein 2+ (NEGATIVE) 02/04/23 14:36 Urine Glucose (UA) 4+ (NEGATIVE) 02/04/23 14:36 Urine Ketones 4+ (NEGATIVE) 02/04/23 14:36 Urine Blood 2+ (NEGATIVE) 02/04/23 14:36 Urine Nitrite Negative (NEGATIVE) 02/04/23 14:36 Urine Bilirubin Negative (NEGATIVE) 02/04/23 14:36 Urine Urobilinogen Normal (NORMAL) 02/04/23 14:36 Ur Leukocyte Esterase Negative (NEGATIVE) 02/04/23 14:36 Urine RBC None seen /HPF (0-3) 02/04/23 14:36 Urine WBC None seen /HPF (0-5) 02/04/23 14:36 Ur Squamous Epith Cells Negative /HPF (NEGATIVE) 02/04/23 14:36 Urine Bacteria Negative /HPF (NEGATIVE) 02/04/23 14:36 Ur Culture Indicated? No/not indicated 02/04/23 14:36 Acetone, Semi-Quant Small (NEGATIVE) H 02/04/23 14:12 SARS-CoV-2 (PCR) Negative (NEGATIVE) 02/04/23 14:49 Influenza Type A (PCR) Negative (NEGATIVE) 02/04/23 14:49 Influenza Type B (PCR) Negative (NEGATIVE) 03/25/23 14:49 RSV (PCR) Negative (NEGATIVE) 02/04/23 14:49 Tissue Pathology See comment. 02/06/23 11:38 - Plan (1) Diabetic ulcer of left foot Status: Acute Plan: IV antibiotics, wound care, blood sugar control. s/p wound debridement per Dr. Moreno x 1day (2) Diabetes Status: Acute
[2023-02-07] MEDS: LANTUS SC SCH (20:26)
[2023-02-07] MEDS: LIPITOR TAB 10 MG PO SCH (20:26)
[2023-02-07] MEDS: SNACK - Diabetic Appropriate PO SCH (20:29)
[2023-02-08 05:37] LABS: BASOPHILS % (AUTO) 0.7 % (0.2-1.0); EOSINOPHILS # (AUTO) 0.2 x10^3/uL (0.0-0.2); EOSINOPHILS % (AUTO) 4.8 % (0.9-2.9); HEMATOCRIT 36.3 % (42.0-54.0); HEMOGLOBIN 12.4 g/dL (13.5-18.0); LYMPHOCYTES # (AUTO) 0.9 X10^3/uL (1.3-2.9); LYMPHOCYTES % (AUTO) 25.9 % (21.0-51.0); MEAN CORPUSCULAR HEMOGLOBIN 29.2 pg (27.0-34.0); MEAN CORPUSCULAR HGB CONC 34.1 g/dL (33.0-35.0); MEAN CORPUSCULAR VOLUME 85.4 fL (80.0-100.0); MEAN PLATELET VOLUME 6.6 fL (7.4-11.0); MONOCYTES # (AUTO) 0.4 x10^3/uL (0.3-0.8); MONOCYTES % (AUTO) 11.3 % (0.0-13.0); NEUTROPHILS % (AUTO) 57.3 % (42.0-75.0); RED BLOOD COUNT 4.25 X10^6/uL (4.7-6.0); WHITE BLOOD COUNT 3.5 X10^3/uL (3.6-10.0)
[2023-02-08] MEDS: BACTROBAN TOPICAL OINT EXT SCH ×3 (05:43→21:45)
[2023-02-08 05:47] LABS: ALANINE AMINOTRANSFERASE 24 Units/L (12-78); ALBUMIN 2.7 g/dL (3.4-5.0); ALKALINE PHOSPHATASE 104 Units/L (46-116); ASPARTATE AMINO TRANSFERASE 14 Units/L (15-37); BLOOD UREA NITROGEN 5 mg/dL (7-18); CALCIUM 8.8 mg/dL (8.5-10.1); CARBON DIOXIDE 34.4 mmol/L (21-32); CHLORIDE 100 mmol/L (98-107); COR CA(FOR HYPOALB) 9.8 mg/dL (8.5-10.1); COR NA(FOR HYPERGLY) 137 mmol/L (136-145); CREATININE 0.83 mg/dL (0.70-1.30); SODIUM 136 mmol/L (136-145); TOTAL PROTEIN 6.3 g/dL (6.4-8.2); eGFR NON BLACK RACES > 60 (>60)
[2023-02-08] MEDS: LEVAQUIN PREMIX IV 750 MG 750 MG/150 ML BAG IV SCH (08:36)
[2023-02-08] MEDS: ZESTRIL TAB 10 MG PO SCH ×2 (08:36→21:43)
--- NOTE | 2023-02-08 11:12 | DR.PROGNOT ---
HOSPITAL PROGRESS NOTE Progress Note for Day of: Progress Note Date: 02/08/23 Chief Complaint Chief Complaint: dressing was changed . no active drainage or necrosis . cleaned and repacked with Iodoform , 4x4 and Stephanie Past Medical Family Social History Past Med/Fam/Surg Hx: No changes since H&P Allergies: Allergies vancomycin Adverse Reaction (Verified 02/04/23 15:12) Review Of Systems ROS: No change since H&P Vital Signs Vital Signs: Temperature 99.1 F Pulse Rate [Brachial] 82 Pulse Rate 92 Respiratory Rate 20 Blood Pressure [Left Arm] 148/86 Blood Pressure 99/57 O2 Sat by Pulse Oximetry 94 Physical Exam Oriented: Normal Eyes: Normal Ear: Normal Nose: Normal Throat: Normal and Other (trach in place) Respiratory: Diminished Cardiovascular: Normal : Normal GI:Auscultation: Normal GI:Palpation: Normal GI: Tenderness: Normal Skin: Normal Musculoskeletal: Left and Foot (left foot wound, with thick bulky dressing intact) Psychiatric: Normal Mood Description: Calm and Appropriate Affect: Normal Speech Pattern: Clear and Appropriate Laboratory and Diagnostics Result Diagrams: 02/08/23 05:20 02/08/23 05:20 Labs: 02/06/23 11:38 Foot - Left Wound Gram Stain - Final 02/06/23 11:38 Foot - Left Wound Culture - Preliminary 02/04/23 14:19 Foot - Left Wound Gram Stain - Final 02/04/23 14:19 Foot - Left Wound Culture - Final Staphylococcus Aureus Acinetobacter Baumanii/Haemoly 02/04/23 14:12 Blood Blood Culture - Final Staphylococcus Aureus 02/04/23 14:00 Blood Blood Culture - Final Staphylococcus Aureus Laboratory WBC 3.5 X10^3/uL (3.6-10.0) L 02/08/23 05:20 RBC 4.25 X10^6/uL (4.7-6.0) L 02/08/23 05:20 Hgb 12.4 g/dL (13.5-18.0) L 02/08/23 05:20 Hct 36.3 % (42.0-54.0) L 02/08/23 05:20 MCV 85.4 fL (80.0-100.0) 02/08/23 05:20 MCH 29.2 pg (27.0-34.0) 02/08/23 05:20 MCHC 34.1 g/dL (33.0-35.0) 02/08/23 05:20 RDW 13.0 % (11.6-16.5) 02/08/23 05:20 Plt Count 247 X10^3/uL (150.0-450.0) 02/08/23 05:20 Plt Count Comment Adequate (ADEQUATE) 02/04/23 14:12 MPV 6.6 fL (7.4-11.0) L 02/08/23 05:20 Neut % (Auto) 57.3 % (42.0-75.0) 02/08/23 05:20 Lymph % (Auto) 25.9 % (21.0-51.0) 02/08/23 05:20 [place] % (Auto) 11.3 % (0.0-13.0) 02/08/23 05:20 Eos % (Auto) 4.8 % (0.9-2.9) H 02/08/23 05:20 Baso % (Auto) 0.7 % (0.2-1.0) 02/08/23 05:20 Neut # (Auto) 2.0 x10^3/uL (2.2-4.8) L 02/08/23 05:20 Lymph # (Auto) 0.9 X10^3/uL (1.3-2.9) L 02/08/23 05:20 [place] # (Auto) 0.4 x10^3/uL (0.3-0.8) 02/08/23 05:20 Eos # (Auto) 0.2 x10^3/uL (0.0-0.2) 02/08/23 05:20 Baso # (Auto) 0.0 X10^3/uL (0.0-0.1) 02/08/23 05:20 Absolute Nucleated RBC 0.0 /100WBC 02/08/23 05:20 Total Counted 100 02/04/23 14:12 Neutrophils % (Manual) 95 % (39-76) H 02/04/23 14:12 Lymphocytes % (Manual) 3 % (13-43) L 02/04/23 14:12 Monocytes % (Manual) 2 % (4-9) L 02/04/23 14:12 Plt Morphology Comment Normal (NORMAL) 02/04/23 14:12 RBC Morphology Normal (NORMAL) 02/04/23 14:12 Sodium 136 mmol/L (136-145) 02/08/23 05:20 Corrected Sodium 137 mmol/L (136-145) 02/08/23 05:20 Potassium 4.0 mmol/L (3.5-5.1) 02/08/23 05:20 Chloride 100 mmol/L (98-107) 02/08/23 05:20 Carbon Dioxide 34.4 mmol/L (21-32) H 02/08/23 05:20 BUN 5 mg/dL (7-18) L 02/08/23 05:20 Creatinine 0.83 mg/dL (0.70-1.30) 02/08/23 05:20 Est GFR (MDRD) Af Amer > 60 (>60) 02/08/23 05:20 Est GFR (MDRD) Non-Af > 60 (>60) 02/08/23 05:20 Glucose 162 mg/dL (65-99) H 02/08/23 05:20 POC Glucose (mg/dL) 148 mg/dL (65-99) H 02/08/23 05:14 Lactic Acid 1.0 mmol/L (0.4-2.0) 02/05/23 04:42 Calcium 8.8 mg/dL (8.5-10.1) 02/08/23 05:20 Corrected Calcium 9.8 mg/dL (8.5-10.1) 02/08/23 05:20 Total Bilirubin 0.20 mg/dL (0.2-1.0) 02/08/23 05:20 AST 14 Units/L (15-37) L 02/08/23 05:20 ALT 24 Units/L (12-78) 02/08/23 05:20 Alkaline Phosphatase 104 Units/L (46-116) 02/08/23 05:20 Total Protein 6.3 g/dL (6.4-8.2) L 02/08/23 05:20 Albumin 2.7 g/dL (3.4-5.0) L 02/08/23 05:20 Globulin 3.6 g/dL (2.5-4.5) 02/08/23 05:20 Albumin/Globulin Ratio 0.8 Ratio (1.1-2.1) L 02/08/23 05:20 Specimen Type Clean catch urine 02/04/23 14:36 Urine Color Yellow (YELLOW) 02/04/23 14:36 Urine Appearance Clear (CLEAR) 02/04/23 14:36 Urine pH 5.0 (5.0 - 8.0) 02/04/23 14:36 Ur Specific [place] 1.015 (1.000-1.030) 02/04/23 14:36 Urine Protein 2+ (NEGATIVE) 02/04/23 14:36 Urine Glucose (UA) 4+ (NEGATIVE) 02/04/23 14:36 Urine Ketones 4+ (NEGATIVE) 02/04/23 14:36 Urine Blood 2+ (NEGATIVE) 02/04/23 14:36 Urine Nitrite Negative (NEGATIVE) 02/04/23 14:36 Urine Bilirubin Negative (NEGATIVE) 02/04/23 14:36 Urine Urobilinogen Normal (NORMAL) 02/04/23 14:36 Ur Leukocyte Esterase Negative (NEGATIVE) 02/04/23 14:36 Urine RBC None seen /HPF (0-3) 02/04/23 14:36 Urine WBC None seen /HPF (0-5) 02/04/23 14:36 Ur Squamous Epith Cells Negative /HPF (NEGATIVE) 02/04/23 14:36 Urine Bacteria Negative /HPF (NEGATIVE) 02/04/23 14:36 Ur Culture Indicated? No/not indicated 02/04/23 14:36 Acetone, Semi-Quant Small (NEGATIVE) H 02/04/23 14:12 SARS-CoV-2 (PCR) Negative (NEGATIVE) 02/04/23 14:49 Influenza Type A (PCR) Negative (NEGATIVE) 02/04/23 14:49 Influenza Type B (PCR) Negative (NEGATIVE) 02/04/23 14:49 RSV (PCR) Negative (NEGATIVE) 02/04/23 14:49 Tissue Pathology See comment. 02/06/23 11:38 Assessment and Plan 1: infected diabetic ulcer Lt foot .possible osteomyelitis on IV ABT 2: sever diabetic neuropathy Problem Patient Problems: Patient Problems (Updated 02/07/23 @ 18:20 by URBANO GARZA) Diabetes (Acute) E11.9 Diabetic ulcer of left foot (Acute) E11.621, L97.529
[2023-02-08] MEDS ORDERED: CATAPRES TAB 0.1 MG PO ONE (11:30)
[2023-02-08] MEDS: NovoLIN R (or HumuLIN R) SUBCUT PRN ×3 (12:10→20:45)
[2023-02-08] MEDS: NS 1,000 ML IV 1,000 ML IV SCH (12:52)
--- NOTE | 2023-02-08 13:04 | PCM.PROG ---
Progress Note - Progress Note for Day of Date of Exam: 02/06/23 - Subjective Subjective: IS A 52 YEAR OLD PATIENT OF OURS WHO WAS ADMITTED TO THE HOSPITAL ON 02/04 OBSERVATION STATUS FOR TREATMENT OF LOWER EXTREMITY CELLULITIS, FEVER, AND DIABETIC FOOT ULCER. HIS PMH INCLUDES: THROAT CANCER (PERMANENT TRACHEOSTOMY IN PLACE), DM II, CHARCOT FOOT, DYSLIPIDEMIA, HYPOTHYR OIDISM, AND HTN. WOUND TO THE LEFT FOOT HAS BEEN FOLLOWED BY THE WOUND CLINIC, BUT HAS NOT BEEN IMPROVING AND HAD STARTED DRAINING MORE PRIOR TO ADMISSION. HE WAS STARTED ON IV ANTIBIOTICS AND GENERAL SURGERY, , WAS CONSULTED. CONSULTED WITH PATIENT AND PLANNED FOR DEBRIDEMENT OF LEFT FOOT ULCER. TODAY, PATIENT IS ALERT AND ORIENTED, LYING IN BED ON MORNING ROUNDS. HE IS NOT IN ANY DISTRESS AND ANSWERS ALL QUESTIONS AND FOLLOWS COMMANDS APPROPRIATELY. HEART IS REGULAR IN RATE AND RHYTHM. BILATERAL LUNGS ARE CLEAR TO AUSCULTATION. ABDOMEN IS ROUND, SOFT, AND NON-TENDER WITH NORMAL BOWEL SOUNDS NOTED IN ALL QUADRANTS. DEFORMITY OF BOTH FEET NOTED. HE HAD AMPUTATED BIG TOES BILATERALLY. NECROTIC ULCER OF THE LATERAL ASPECT OF THE LEFT FOOT AT THE 5TH METATARSAL HEAD AREA NOTED. PALPABLE DISTUL PULSES, BUT WEAK. HIS VITALS ON MORNING ROUNDS WERE: 98.3-80-18-96%-150/76. LABS WERE OBTAINED. WBC 3.1, RBC 3.89, HGB 11.6, HCT 33.6, PLT COUNT 198, SODIUM 132, POTASSIUM 4.1, CHLORIDE 97, BUN 13, CREATININE 1.03, GLUCOSE 248, CALCIUM 8.1, AST 18, ALT 20, ALK PHOS 101, TOTAL PROTEIN 5.8, ALBUMIN 2.4. BLOOD CULTURES ARE PENDING. LEFT FOOT CULTURE IS POSITIVE FOR GROWTH OF STAPHYLOCOCCUS AUREUS AND ACINETOBACTER BAUMANII/HAEMOLY. CHEST XRAY WAS OBTAINED FOR PREOPERATIVE CLEARANCE AND REVEALED: NO ACUTE PULMONARY PROCESS WITHIN THE FIELD OF VIEW. PATIENT IS MEDICALLY STABLE AND CLEAR FOR DEBRIDEMENT OF WOUND. HE IS CURRENTLY RECEIVING NORMAL SALINE AT 75 ML/HR, LEVAQUIN 750MG IV DAILY, BACTROBAN OINTMENT TID, HUMULIN R SLIDING SCALE, OTBS ACHS, LANTUS 30 UNITS HS, ZOFRAN 4MG PO Q6H PRN, MORPHINE SULFATE 4MG IV Q6H PRN, NORCO 5/325MG PO Q6H PRN, LIPITOR 10MG PO HS, ZESTRIL 10MG BID. WE WILL CONTINUE WITH CURRENT PLAN OF CARE TODAY. OTHERWISE, WE WILL FOLLOW-UP WITH AM LABS AND CONTINUE TO MONITOR. TIME SPENT ON CLINICAL ASSESSMENT, REVIWING LABS AND IMAGING, DECISION MAKING, AND DOCUMENTATION GREATER THAN 45 MINUTES. - Past Medical Family Social History Past Med/Fam/Surg Hx: No changes since H&P Allergies: Allergies vancomycin Adverse Reaction (Verified 02/04/23 15:12) - Review of Systems ROS: No change since H&P - Vital Signs and I&O's Vital Signs: Temperature 97.9 F Pulse Rate [Brachial] 62 Pulse Rate 92 Respiratory Rate 20 Blood Pressure [Left Arm] 190/110 Blood Pressure 99/57 O2 Sat by Pulse Oximetry 99 Intake and Output: Intake & Output 02/06/23 02/07/23 02/08/23 02/09/23 11:59 11:59 11:59 11:59 Intake Total 1898 / 1898 3269 / 3269 3438 / 3438 Output Total 1000 / 1000 Balance 1898 / 1898 2269 / 2269 3438 / 3438 - Physical Exam Oriented: Normal Eyes: Normal Ear: Normal Nose: Normal Throat: Normal, Other (trach in place) Respiratory: Diminished Cardiovascular: Normal : Normal Auscultation: Bowel Sounds: Normal Palpation: Normal Tenderness: Normal Skin: Normal Musculoskeletal: Left, Foot (left foot wound, with thick bulky dressing intact) Psychiatric: Normal Mood Description: Calm, Appropriate Affect: Normal Speech Pattern: Clear, Appropriate - Laboratory and Diagnostics Result Diagrams: 02/08/23 05:20 02/08/23 05:20 Labs: 02/06/23 11:38 Foot - Left Wound Gram Stain - Final 02/06/23 11:38 Foot - Left Wound Culture - Preliminary 02/04/23 14:19 Foot - Left Wound Gram Stain - Final 02/04/23 14:19 Foot - Left Wound Culture - Final Staphylococcus Aureus Acinetobacter Baumanii/Haemoly 02/04/23 14:12 Blood Blood Culture - Final Staphylococcus Aureus 02/04/23 14:00 Blood Blood Culture - Final Staphylococcus Aureus Laboratory WBC 3.5 X10^3/uL (3.6-10.0) L 02/08/23 05:20 RBC 4.25 X10^6/uL (4.7-6.0) L 02/08/23 05:20 Hgb 12.4 g/dL (13.5-18.0) L 02/08/23 05:20 Hct 36.3 % (42.0-54.0) L 02/08/23 05:20 MCV 85.4 fL (80.0-100.0) 02/08/23 05:20 MCH 29.2 pg (27.0-34.0) 02/08/23 05:20 MCHC 34.1 g/dL (33.0-35.0) 02/08/23 05:20 RDW 13.0 % (11.6-16.5) 02/08/23 05:20 Plt Count 247 X10^3/uL (150.0-450.0) 02/08/23 05:20 Plt Count Comment Adequate (ADEQUATE) 02/04/23 14:12 MPV 6.6 fL (7.4-11.0) L 02/08/23 05:20 Neut % (Auto) 57.3 % (42.0-75.0) 02/08/23 05:20 Lymph % (Auto) 25.9 % (21.0-51.0) 02/08/23 05:20 [place] % (Auto) 11.3 % (0.0-13.0) 02/08/23 05:20 Eos % (Auto) 4.8 % (0.9-2.9) H 02/08/23 05:20 Baso % (Auto) 0.7 % (0.2-1.0) 02/08/23 05:20 Neut # (Auto) 2.0 x10^3/uL (2.2-4.8) L 02/08/23 05:20 Lymph # (Auto) 0.9 X10^3/uL (1.3-2.9) L 02/08/23 05:20 [place] # (Auto) 0.4 x10^3/uL (0.3-0.8) 02/08/23 05:20 Eos # (Auto) 0.2 x10^3/uL (0.0-0.2) 02/08/23 05:20 Baso # (Auto) 0.0 X10^3/uL (0.0-0.1) 02/08/23 05:20 Absolute Nucleated RBC 0.0 /100WBC 02/08/23 05:20 Total Counted 100 02/04/23 14:12 Neutrophils % (Manual) 95 % (39-76) H 02/04/23 14:12 Lymphocytes % (Manual) 3 % (13-43) L 02/04/23 14:12 Monocytes % (Manual) 2 % (4-9) L 02/04/23 14:12 Plt Morphology Comment Normal (NORMAL) 02/04/23 14:12 RBC Morphology Normal (NORMAL) 02/04/23 14:12 Sodium 136 mmol/L (136-145) 02/08/23 05:20 Corrected Sodium 137 mmol/L (136-145) 02/08/23 05:20 Potassium 4.0 mmol/L (3.5-5.1) 02/08/23 05:20 Chloride 100 mmol/L (98-107) 02/08/23 05:20 Carbon Dioxide 34.4 mmol/L (21-32) H 02/08/23 05:20 BUN 5 mg/dL (7-18) L 02/08/23 05:20 Creatinine 0.83 mg/dL (0.70-1.30) 02/08/23 05:20 Est GFR (MDRD) Af Amer > 60 (>60) 02/08/23 05:20 Est GFR (MDRD) Non-Af > 60 (>60) 02/08/23 05:20 Glucose 162 mg/dL (65-99) H 02/08/23 05:20 POC Glucose (mg/dL) 202 mg/dL (65-99) H 02/08/23 12:03 Lactic Acid 1.0 mmol/L (0.4-2.0) 02/05/23 04:42 Calcium 8.8 mg/dL (8.5-10.1) 02/08/23 05:20 Corrected Calcium 9.8 mg/dL (8.5-10.1) 02/08/23 05:20 Total Bilirubin 0.20 mg/dL (0.2-1.0) 02/08/23 05:20 AST 14 Units/L (15-37) L 02/08/23 05:20 ALT 24 Units/L (12-78) 02/08/23 05:20 Alkaline Phosphatase 104 Units/L (46-116) 02/08/23 05:20 Total Protein 6.3 g/dL (6.4-8.2) L 02/08/23 05:20 Albumin 2.7 g/dL (3.4-5.0) L 02/08/23 05:20 Globulin 3.6 g/dL (2.5-4.5) 02/08/23 05:20 Albumin/Globulin Ratio 0.8 Ratio (1.1-2.1) L 02/08/23 05:20 Specimen Type Clean catch urine 02/04/23 14:36 Urine Color Yellow (YELLOW) 02/04/23 14:36 Urine Appearance Clear (CLEAR) 02/04/23 14:36 Urine pH 5.0 (5.0 - 8.0) 02/04/23 14:36 Ur Specific [place] 1.015 (1.000-1.030) 02/04/23 14:36 Urine Protein 2+ (NEGATIVE) 02/04/23 14:36 Urine Glucose (UA) 4+ (NEGATIVE) 02/04/23 14:36 Urine Ketones 4+ (NEGATIVE) 02/04/23 14:36 Urine Blood 2+ (NEGATIVE) 02/04/23 14:36 Urine Nitrite Negative (NEGATIVE) 02/04/23 14:36 Urine Bilirubin Negative (NEGATIVE) 02/04/23 14:36 Urine Urobilinogen Normal (NORMAL) 02/04/23 14:36 Ur Leukocyte Esterase Negative (NEGATIVE) 02/04/23 14:36 Urine RBC None seen /HPF (0-3) 02/04/23 14:36 Urine WBC None seen /HPF (0-5) 02/04/23 14:36 Ur Squamous Epith Cells Negative /HPF (NEGATIVE) 02/04/23 14:36 Urine Bacteria Negative /HPF (NEGATIVE) 02/04/23 14:36 Ur Culture Indicated? No/not indicated 02/04/23 14:36 Acetone, Semi-Quant Small (NEGATIVE) H 02/04/23 14:12 SARS-CoV-2 (PCR) Negative (NEGATIVE) 02/04/23 14:49 Influenza Type A (PCR) Negative (NEGATIVE) 02/04/23 14:49 Influenza Type B (PCR) Negative (NEGATIVE) 02/04/23 14:49 RSV (PCR) Negative (NEGATIVE) 02/04/23 14:49 Tissue Pathology See comment. 02/06/23 11:38 - Plan (1) Diabetic ulcer of left foot Status: Acute Qualifiers: Diabetic foot ulcer location: toe Diabetes mellitus type: type 2 Non- pressure ulcer stage: unspecified non-pressure ulcer stage Qualified Code(s): E11.621 - Type 2 diabetes mellitus with foot ulcer; L97.529 - Non-pressure chronic ulcer of other part of left foot with unspecified severity Plan: IV antibiotics, wound care, blood sugar control. s/p wound debridement per Dr. Moreno x 2 days (2) Diabetes Status: Acute Qualifiers: Diabetes mellitus type: type 2 Diabetes mellitus rn long term care insulin use: with rn long term care use Diabetes mellitus complication status: with skin complications Diabetes mellitus complication detail: with foot ulcer Qualified Code(s): E11.621 - Type 2 diabetes mellitus with foot ulcer; L97.509 - Non-pressure chronic ulcer of other part of unspecified foot with unspecified severity; Z79.4 - rn long term care (current) use of insulin (3) Charcot foot due to diabetes mellitus Status: Acute (4) HTN (hypertension) Status: Chronic Qualifiers: Hypertension type: primary hypertension Qualified Code(s): I10 - Essential (primary) hypertension (5) Dyslipidemia Status: Chronic (6) Hypothyroidism Status: Chronic Qualifiers: Hypothyroidism type: acquired Qualified Code(s): E03.9 - Hypothyroidism, unspecified (7) Tracheostomy in place Status: Chronic
[2023-02-08] MEDS ORDERED: APRESOLINE INJ 20 MG VIAL IVP ONE (15:44)
[2023-02-08] MEDS: SNACK - Diabetic Appropriate PO SCH (20:30)
[2023-02-08] MEDS: LIPITOR TAB 10 MG PO SCH (21:43)
[2023-02-08] MEDS: LANTUS SC SCH (21:45)
[2023-02-09] MEDS: NS 1,000 ML IV 1,000 ML IV SCH ×3 (00:18→17:51)
[2023-02-09] MEDS: BACTROBAN TOPICAL OINT EXT SCH ×2 (05:33→13:49)
[2023-02-09 06:09] LABS: ALANINE AMINOTRANSFERASE 23 Units/L (12-78); ALBUMIN 2.9 g/dL (3.4-5.0); ALKALINE PHOSPHATASE 107 Units/L (46-116); ASPARTATE AMINO TRANSFERASE 13 Units/L (15-37); BLOOD UREA NITROGEN 10 mg/dL (7-18); CALCIUM 8.9 mg/dL (8.5-10.1); CHLORIDE 98 mmol/L (98-107); COR CA(FOR HYPOALB) 9.8 mg/dL (8.5-10.1); COR NA(FOR HYPERGLY) 139 mmol/L (136-145); CREATININE 0.89 mg/dL (0.70-1.30); SODIUM 139 mmol/L (136-145); TOTAL PROTEIN 6.4 g/dL (6.4-8.2); eGFR NON BLACK RACES > 60 (>60)
[2023-02-09 06:11] LABS: BASOPHILS % (AUTO) 0.9 % (0.2-1.0); EOSINOPHILS # (AUTO) 0.1 x10^3/uL (0.0-0.2); EOSINOPHILS % (AUTO) 2.7 % (0.9-2.9); HEMATOCRIT 37.1 % (42.0-54.0); HEMOGLOBIN 12.9 g/dL (13.5-18.0); LYMPHOCYTES # (AUTO) 0.9 X10^3/uL (1.3-2.9); MEAN CORPUSCULAR HEMOGLOBIN 29.3 pg (27.0-34.0); MEAN CORPUSCULAR HGB CONC 34.8 g/dL (33.0-35.0); MEAN CORPUSCULAR VOLUME 84.3 fL (80.0-100.0); MEAN PLATELET VOLUME 6.7 fL (7.4-11.0); MONOCYTES # (AUTO) 0.5 x10^3/uL (0.3-0.8); MONOCYTES % (AUTO) 11.4 % (0.0-13.0); NEUTROPHILS # (AUTO) 2.5 x10^3/uL (2.2-4.8)
[2023-02-09] MEDS ORDERED: POTASSIUM CHL 60 MEQ/NS 0.45% 500 ML IV PRN (07:30)
[2023-02-09] MEDS ORDERED: KLOR-CON PO PRN (07:30)
[2023-02-09] MEDS ORDERED: MICRO K EXTEN CAP 10 MEQ PO PRN (07:30)
[2023-02-09] MEDS ORDERED: POTASSIUM CHL 40 MEQ/NS 0.45% 500 ML IV PRN (07:30)
[2023-02-09] MEDS ORDERED: K-RIDER 10 MEQ/NS 100 ML 10 MEQ/100 ML BAG IV PRN (07:30)
[2023-02-09] MEDS ORDERED: K-DUR TAB 20 MEQ PO PRN (07:30)
[2023-02-09] MEDS ORDERED: POTASSIUM CHLORIDE LIQ 20 MEQ UDC PO PRN (07:30)
--- NOTE | 2023-02-09 08:07 | CT ---
HISTORYDIABETIC FOOT ULCER, CELLULITIS LEFT FOOTSTUDYCT LOWER EXTREMITY WO CONTRASTCOMPARISONLeft foot radiograph 02/04/2023.TECHNIQUECT of the left lower extremity without contrast with sagittal and coronal reformats. [id number] is from the distal leg through the forefoot. Dose reduction techniques including Automated Exposure Control (AEC) and adjustment of mA and kV were utilized.FINDINGSLack of contrast limits evaluation.There is a soft tissue ulceration at the lateral forefoot at the level of the 5th metatarsal head on image 45 series 10. There is some irregularity of the base of 5th proximal phalanx image 43 series 6 without significant periosteal reaction. [place] medial angulation of the 2nd through 4th MTP joints. There is irregularity with some partial destruction of the head of 2nd metatarsal and base of the 2nd proximal phalanx. There is mild irregularity of the head of the 4th metatarsal image 43 series 6. 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 Possible sinus tract or collection at the plantar forefoot at the level of 2nd MTP joint. See image 47 through image 40 of series 10. There is moderate subcutaneous edema in the forefoot.IMPRESSIONThere is some irregularity of osseous structures mainly the bones about the 2nd MTP joint, the 4th metatarsal head, and the 5th proximal phalanx base. This could be degenerative or sequela of chronic osteomyelitis.Consider MRI for further evaluation as clinically warranted.Ulceration at the lateral forefoot at the level of the 5th metatarsal head. Possible collection or sinus tract at the level of the plantar 2nd MTP joint. MRI would be helpful (with and without contrast if clinically appropriate).Electronically signed by: Virgil Cisneros (Feb 09, 2023 08:06:02)
[2023-02-09] MEDS: MAGNESIUM SULFATE 1 GRAM/100 mL PREMIX 1 G/100 ML BAG IV PRN ×2 (08:08→12:36)
[2023-02-09] MEDS: ZESTRIL TAB 10 MG PO SCH ×2 (08:12→21:16)
[2023-02-09] MEDS: LEVAQUIN PREMIX IV 750 MG 750 MG/150 ML BAG IV SCH (09:15)
[2023-02-09] MEDS ORDERED: ZESTRIL TAB 10 MG PO ONE (09:54)
[2023-02-09] MEDS: NORVASC TAB 5 MG PO SCH (10:25)
--- NOTE | 2023-02-09 12:22 | PCM.PROG ---
Progress Note - Progress Note for Day of Date of Exam: 02/08/23 - Subjective Subjective: IS A 52 YEAR OLD PATIENT OF OURS WHO WAS ADMITTED TO THE HOSPITAL ON 02/04 FOR TREATMENT OF LOWER EXTREMITY CELLULITIS, FEVER, AND DIABETIC FOOT ULCER. HE IS DAY 2 POST OF DEBRIDEMENT OF WOUND. HE IS CURRENTLY INPATIENT STATUS. HIS PMH INCLUDES: THROAT CANCER (PERMANENT TRACHEOSTOMY IN PLACE), DM II, CHARCOT FOOT, DYSLIPIDEMIA, HYPOTHYROIDISM, AND HTN. WOUND TO THE LEFT FOOT HAS BEEN FOLLOWED BY THE WOUND CLINIC, BUT HAS NOT BEEN IMPROVING AND HAD STARTED DRAINING MORE PRIOR TO ADMISSION. HE WAS STARTED ON IV ANTIBIOTICS AND GENERAL SURGERY, , WAS CONSULTED. CONSULTED WITH PATIENT AND PLANNED FOR DEBRIDEMENT OF LEFT FOOT ULCER. TODAY, PATIENT IS ALERT AND ORIENTED, LYING IN BED ON MORNING ROUNDS. HE IS NOT IN ANY DISTRESS AND ANSWERS ALL QUESTIONS AND FOLLOWS COMMANDS APPROPRIATELY. HEART IS REGULAR IN RATE AND RHYTHM. BILATERAL LUNGS ARE CLEAR TO AUSCULTATION. ABDOMEN IS ROUND, SOFT, AND NON-TENDER WITH NORMAL BOWEL SOUNDS NOTED IN ALL QUADRANTS. LARGE, BULKY DRESSING OF LEFT FOOT NOTED. HIS VITALS ON MORNING ROUNDS WERE: 99.1-82-20-94%-148/86. LABS WERE OBTAINED. WBC 3.5, RBC 4.25, HGB 12.4, HCT 36.3, PLT COUNT 247, SODIUM 136, POTASSIUM 4.0, CHLORIDE 100, BUN 5, CREATININE 0.83, GLUCOSE 162, CALCIUM 8.8, AST 14, ALT 24, ALK PHOS 104, TOTAL PROTEIN 6.3, ALBUMIN 2.7. BLOOD CULTURES ARE POSITIVE FOR GROWTH OF STAPHYLOCOCCUS AUREUS. LEFT FOOT CULTURE IS POSITIVE FOR GROWTH OF STAPHYLOCOCCUS AUREUS AND ACINETOBACTER BAUMANII/HAEMOLY. HE IS CURRENTLY RECEIVING NORMAL SALINE AT 75 ML/HR, LEVAQUIN 750MG IV DAILY, BACTROBAN OINTMENT TID, HUMULIN R SLIDING SCALE, OTBS ACHS, LANTUS 30 UNITS HS, ZOFRAN 4MG PO Q6H PRN, MORPHINE SULFATE 4MG IV Q6 H PRN, NORCO 5/325MG PO Q6H PRN, LIPITOR 10MG PO HS, ZESTRIL 10MG BID. HAS ORDERED A CT OF THE LEFT LOWER EXTREMITY, WHICH WILL BE DONE TODAY. OTHERWISE, WE WILL CONTINUE WITH WOUND CARE AND CURRENT PLAN OF CARE TODAY. WE WILL FOLLOW-UP WITH AM LABS AND CONTINUE TO MONITOR. TIME SPENT ON CLINICAL ASSESSMENT, REVIWING LABS AND IMAGING, DECISION MAKING, AND DOCUMENTATION GREATER THAN 45 MINUTES. - Past Medical Family Social History Past Med/Fam/Surg Hx: No changes since H&P Allergies: Allergies vancomycin Adverse Reaction (Verified 02/04/23 15:12) - Review of Systems ROS: No change since H&P - Vital Signs and I&O's Vital Signs: Temperature 98.7 F Pulse Rate [Brachial] 86 Pulse Rate 92 Respiratory Rate 20 Blood Pressure [Left Arm] 144/75 Blood Pressure 99/57 O2 Sat by Pulse Oximetry 97 Intake and Output: Intake & Output 02/07/23 02/08/23 02/09/23 02/10/23 11:59 11:59 11:59 11:59 Intake Total 3269 / 3269 3438 / 3438 2924 / 2924 Output Total 1000 / 1000 Balance 2269 / 2269 3438 / 3438 2924 / 2924 - Physical Exam Oriented: Normal Eyes: Normal Ear: Normal Nose: Normal Throat: Normal, Other (trach in place) Respiratory: Diminished Cardiovascular: Normal : Normal Auscultation: Bowel Sounds: Normal Palpation: Normal Tenderness: Normal Skin: Normal Musculoskeletal: Left, Foot (left foot wound, with thick bulky dressing intact) Psychiatric: Normal Mood Description: Calm, Appropriate Affect: Normal Speech Pattern: Clear, Appropriate - Laboratory and Diagnostics Result Diagrams: 02/09/23 05:22 02/09/23 05:22 Labs: 02/06/23 11:38 Foot - Left Wound Gram Stain - Final 02/06/23 11:38 Foot - Left Wound Culture - Preliminary 02/04/23 14:19 Foot - Left Wound Gram Stain - Final 02/04/23 14:19 Foot - Left Wound Culture - Final Staphylococcus Aureus Acinetobacter Baumanii/Haemoly 02/04/23 14:12 Blood Blood Culture - Final Staphylococcus Aureus 02/04/23 14:00 Blood Blood Culture - Final Staphylococcus Aureus Laboratory WBC 4.0 X10^3/uL (3.6-10.0) 02/09/23 05:22 RBC 4.40 X10^6/uL (4.7-6.0) L 02/09/23 05:22 Hgb 12.9 g/dL (13.5-18.0) L 02/09/23 05:22 Hct 37.1 % (42.0-54.0) L 02/09/23 05:22 MCV 84.3 fL (80.0-100.0) 02/09/23 05:22 MCH 29.3 pg (27.0-34.0) 02/09/23 05:22 MCHC 34.8 g/dL (33.0-35.0) 02/09/23 05:22 RDW 13.0 % (11.6-16.5) 02/09/23 05:22 Plt Count 273 X10^3/uL (150.0-450.0) 02/09/23 05:22 Plt Count Comment Adequate (ADEQUATE) 02/04/23 14:12 MPV 6.7 fL (7.4-11.0) L 02/09/23 05:22 Neut % (Auto) 63.0 % (42.0-75.0) 02/09/23 05:22 Lymph % (Auto) 22.0 % (21.0-51.0) 02/09/23 05:22 [place] % (Auto) 11.4 % (0.0-13.0) 02/09/23 05:22 Eos % (Auto) 2.7 % (0.9-2.9) 02/09/23 05:22 Baso % (Auto) 0.9 % (0.2-1.0) 02/09/23 05:22 Neut # (Auto) 2.5 x10^3/uL (2.2-4.8) 02/09/23 05:22 Lymph # (Auto) 0.9 X10^3/uL (1.3-2.9) L 02/09/23 05:22 [place] # (Auto) 0.5 x10^3/uL (0.3-0.8) 02/09/23 05:22 Eos # (Auto) 0.1 x10^3/uL (0.0-0.2) 02/09/23 05:22 Baso # (Auto) 0.0 X10^3/uL (0.0-0.1) 02/09/23 05:22 Absolute Nucleated RBC 0.7 /100WBC 02/09/23 05:22 Total Counted 100 02/04/23 14:12 Neutrophils % (Manual) 95 % (39-76) H 02/04/23 14:12 Lymphocytes % (Manual) 3 % (13-43) L 02/04/23 14:12 Monocytes % (Manual) 2 % (4-9) L 02/04/23 14:12 Plt Morphology Comment Normal (NORMAL) 02/04/23 14:12 RBC Morphology Normal (NORMAL) 02/04/23 14:12 Sodium 139 mmol/L (136-145) 02/09/23 05:22 Corrected Sodium 139 mmol/L (136-145) 02/09/23 05:22 Potassium 3.6 mmol/L (3.5-5.1) 02/09/23 05:22 Chloride 98 mmol/L (98-107) 02/09/23 05:22 Carbon Dioxide 34.0 mmol/L (21-32) H 02/09/23 05:22 BUN 10 mg/dL (7-18) 02/09/23 05:22 Creatinine 0.89 mg/dL (0.70-1.30) 02/09/23 05:22 Est GFR (MDRD) Af Amer > 60 (>60) 02/09/23 05:22 Est GFR (MDRD) Non-Af > 60 (>60) 02/09/23 05:22 Glucose 114 mg/dL (65-99) H 02/09/23 05:22 POC Glucose (mg/dL) 117 mg/dL (65-99) H 02/09/23 05:27 Lactic Acid 1.0 mmol/L (0.4-2.0) 02/05/23 04:42 Calcium 8.9 mg/dL (8.5-10.1) 02/09/23 05:22 Corrected Calcium 9.8 mg/dL (8.5-10.1) 02/09/23 05:22 Magnesium 1.7 mg/dL (2.0-2.9) L 02/09/23 05:22 Total Bilirubin 0.20 mg/dL (0.2-1.0) 02/09/23 05:22 AST 13 Units/L (15-37) L 02/09/23 05:22 ALT 23 Units/L (12-78) 02/09/23 05:22 Alkaline Phosphatase 107 Units/L (46-116) 02/09/23 05:22 Total Protein 6.4 g/dL (6.4-8.2) 02/09/23 05:22 Albumin 2.9 g/dL (3.4-5.0) L 02/09/23 05:22 Globulin 3.5 g/dL (2.5-4.5) 02/09/23 05:22 Albumin/Globulin Ratio 0.8 Ratio (1.1-2.1) L 02/09/23 05:22 Specimen Type Clean catch urine 02/04/23 14:36 Urine Color Yellow (YELLOW) 02/04/23 14:36 Urine Appearance Clear (CLEAR) 02/04/23 14:36 Urine pH 5.0 (5.0 - 8.0) 02/04/23 14:36 Ur Specific [place] 1.015 (1.000-1.030) 02/04/23 14:36 Urine Protein 2+ (NEGATIVE) 02/04/23 14:36 Urine Glucose (UA) 4+ (NEGATIVE) 02/04/23 14:36 Urine Ketones 4+ (NEGATIVE) 02/04/23 14:36 Urine Blood 2+ (NEGATIVE) 02/04/23 14:36 Urine Nitrite Negative (NEGATIVE) 02/04/23 14:36 Urine Bilirubin Negative (NEGATIVE) 02/04/23 14:36 Urine Urobilinogen Normal (NORMAL) 02/04/23 14:36 Ur Leukocyte Esterase Negative (NEGATIVE) 02/04/23 14:36 Urine RBC None seen /HPF (0-3) 02/04/23 14:36 Urine WBC None seen /HPF (0-5) 02/04/23 14:36 Ur Squamous Epith Cells Negative /HPF (NEGATIVE) 02/04/23 14:36 Urine Bacteria Negative /HPF (NEGATIVE) 02/04/23 14:36 Ur Culture Indicated? No/not indicated 02/04/23 14:36 Acetone, Semi-Quant Small (NEGATIVE) H 02/04/23 14:12 SARS-CoV-2 (PCR) Negative (NEGATIVE) 02/04/23 14:49 Influenza Type A (PCR) Negative (NEGATIVE) 02/04/23 14:49 Influenza Type B (PCR) Negative (NEGATIVE) 02/04/23 14:49 RSV (PCR) Negative (NEGATIVE) 02/04/23 14:49 Tissue Pathology See comment. 02/06/23 11:38 - Plan (1) Diabetic ulcer of left foot Status: Acute Qualifiers: Diabetic foot ulcer location: toe Diabetes mellitus type: type 2 Non- pressure ulcer stage: unspecified non-pressure ulcer stage Qualified Code(s): E11.621 - Type 2 diabetes mellitus with foot ulcer; L97.529 - Non-pressure chronic ulcer of other part of left foot with unspecified severity Plan: IV antibiotics, wound care, blood sugar control. s/p wound debridement per Dr. Moreno x 2 days (2) Diabetes Status: Acute Qualifiers: Diabetes mellitus type: type 2 Diabetes mellitus fpc insulin use: with fpc use Diabetes mellitus complication status: with skin complications Diabetes mellitus complication detail: with foot ulcer Qualified Code(s): E11.621 - Type 2 diabetes mellitus with foot ulcer; L97.509 - Non-pressure chronic ulcer of other part of unspecified foot with unspecified severity; Z79.4 - alf (current) use of insulin (3) Charcot foot due to diabetes mellitus Status: Acute (4) HTN (hypertension) Status: Chronic Qualifiers: Hypertension type: primary hypertension Qualified Code(s): I10 - Essential (primary) hypertension (5) Dyslipidemia Status: Chronic (6) Hypothyroidism Status: Chronic Qualifiers: Hypothyroidism type: acquired Qualified Code(s): E03.9 - Hypothyroidism, unspecified (7) Tracheostomy in place Status: Chronic
--- NOTE | 2023-02-09 12:33 | PCM.PROG ---
Progress Note - Progress Note for Day of Date of Exam: 02/09/23 - Subjective Subjective: IS A 52 YEAR OLD PATIENT OF OURS WHO WAS ADMITTED TO THE HOSPITAL ON 02/04 FOR TREATMENT OF LOWER EXTREMITY CELLULITIS, FEVER, AND DIABETIC FOOT ULCER. HE IS DAY 3 POST OF DEBRIDEMENT OF WOUND. HE IS CURRENTLY INPATIENT STATUS. HIS PMH INCLUDES: THROAT CANCER (PERMANENT TRACHEOSTOMY IN PLACE), DM II, CHARCOT FOOT, DYSLIPIDEMIA, HYPOTHYROIDISM, AND HTN. WOUND TO THE LEFT FOOT HAS BEEN FOLLOWED BY THE WOUND CLINIC, BUT HAS NOT BEEN IMPROVING AND HAD STARTED DRAINING MORE PRIOR TO ADMISSION. PERFORMED DEBRIDEMENT OF WOUND ON 02/06. NURSING STAFF REPORTS THAT PATIENT HAS BEEN HYPERTENSIVE. HE HAS REQUIRED MULTIPLE DOSES OF PRN LABETALOL. TODAY, PATIENT IS ALERT AND ORIE NTED, LYING IN BED ON MORNING ROUNDS. HE IS NOT IN ANY DISTRESS AND ANSWERS ALL QUESTIONS AND FOLLOWS COMMANDS APPROPRIATELY. HEART IS REGULAR IN RATE AND RHYTHM. BILATERAL LUNGS ARE CLEAR TO AUSCULTATION. ABDOMEN IS ROUND, SOFT, AND NON-TENDER WITH NORMAL BOWEL SOUNDS NOTED IN ALL QUADRANTS. LARGE, BULKY DRESSING OF LEFT FOOT NOTED. HIS VITALS ON MORNING ROUNDS WERE: 98.7-86-20-97%-144/75. LABS WERE OBTAINED. WBC 4.0, RBC 4.40, HGB 12.9, HCT 37.1, SODIUM 139, POTASSIUM 3.6, CHLORIDE 98, CARBON DIOXIDE 34, BUN 10, CREATININE 0.89, GLUCOSE 114, MAGNESIUM 1.7, AST 13, ALT 23, ALK PHOS 107, TOTAL PROTEIN 6.4, ALBUMIN 2.9. BLOOD CULTURES ARE POSITIVE FOR GROWTH OF STAPHYLOCOCCUS AUREUS. LEFT FOOT CULTURE IS POSITIVE FOR GROWTH OF STAPHYLOCOCCUS AUREUS AND ACINETOBACTER BAUMANII/HAEMOLY. A LOWER EXTREMITY CT WITHOUT CONTRAST WAS PERFORMED YESTERDAY. IT REVEALED: There is some irregularity of osseous structures mainly the bones about the 2nd MTP joint, the 4th metatarsal head, and the 5th proximal phalanx base. This could be degenerative or sequela of chronic osteomyelitis. Ulceration at the lateral forefoot at the level of the 5th metatarsal head. Possible collection or sinus tract at the level of the plantar 2nd MTP joint. MRI would be helpful. WE WILL OBTAIN AN MRI OF THE LEFT LOWER EXTREMITY WITH AND WITHOUT CONTRAST TO RULE OUT OSTEOMYELITIS TODAY. HE IS CURRENTLY RECEIVING NORMAL SALINE AT 75 ML/HR, LEVAQUIN 750MG IV DAILY, BACTROBAN OINTMENT TID, HUMULIN R SLIDING SCALE, OTBS ACHS, LANTUS 30 UNITS HS, ZOFRAN 4MG PO Q6H PRN, MORPHINE SULFATE 4MG IV Q6H PRN, NORCO 5/325MG PO Q6H PRN, LIPITOR 10MG PO HS, ZESTRIL 10MG BID. WE WILL INCREASE LISINOPRIL TO 20MG BID AND ADD AMLODIPINE 5MG DAILY. OTHERWISE, WE WILL CONTINUE WITH WOUND CARE AND CURRENT PLAN OF CARE. WE WILL FOLLOW-UP WITH AM LABS AND CONTINUE TO MONITOR. TIME SPENT ON CLINICAL ASSESSMENT, REVIWING LABS AND IMAGING, DECISION MAKING, AND DOCUMENTATION GREATER THAN 45 MINUTES. - Past Medical Family Social History Past Med/Fam/Surg Hx: No changes since H&P Allergies: Allergies vancomycin Adverse Reaction (Verified 02/04/23 15:12) - Review of Systems ROS: No change since H&P - Vital Signs and I&O's Vital Signs: Temperature 98.7 F Pulse Rate [Brachial] 86 Pulse Rate 92 Respiratory Rate 20 Blood Pressure [Left Arm] 144/75 Blood Pressure 99/57 O2 Sat by Pulse Oximetry 97 Intake and Output: Intake & Output 02/07/23 02/08/23 02/09/23 02/10/23 11:59 11:59 11:59 11:59 Intake Total 3269 / 3269 3438 / 3438 2924 / 2924 Output Total 1000 / 1000 Balance 2269 / 2269 3438 / 3438 2924 / 2924 - Physical Exam Oriented: Normal Eyes: Normal Ear: Normal Nose: Normal Throat: Normal, Other (trach in place) Respiratory: Diminished Cardiovascular: Normal : Normal Auscultation: Bowel Sounds: Normal Palpation: Normal Tenderness: Normal Skin: Normal Musculoskeletal: Left, Foot (left foot wound, with thick bulky dressing intact) Psychiatric: Normal Mood Description: Calm, Appropriate Affect: Normal Speech Pattern: Clear, Appropriate - Laboratory and Diagnostics Result Diagrams: 02/09/23 05:22 02/09/23 05:22 Labs: 02/06/23 11:38 Foot - Left Wound Gram Stain - Final 02/06/23 11:38 Foot - Left Wound Culture - Preliminary 02/04/23 14:19 Foot - Left Wound Gram Stain - Final 02/04/23 14:19 Foot - Left Wound Culture - Final Staphylococcus Aureus Acinetobacter Baumanii/Haemoly 02/04/23 14:12 Blood Blood Culture - Final Staphylococcus Aureus 02/04/23 14:00 Blood Blood Culture - Final Staphylococcus Aureus Laboratory WBC 4.0 X10^3/uL (3.6-10.0) 02/09/23 05:22 RBC 4.40 X10^6/uL (4.7-6.0) L 02/09/23 05:22 Hgb 12.9 g/dL (13.5-18.0) L 02/09/23 05:22 Hct 37.1 % (42.0-54.0) L 02/09/23 05:22 MCV 84.3 fL (80.0-100.0) 02/09/23 05:22 MCH 29.3 pg (27.0-34.0) 02/09/23 05:22 MCHC 34.8 g/dL (33.0-35.0) 02/09/23 05:22 RDW 13.0 % (11.6-16.5) 02/09/23 05:22 Plt Count 273 X10^3/uL (150.0-450.0) 02/09/23 05:22 Plt Count Comment Adequate (ADEQUATE) 02/04/23 14:12 MPV 6.7 fL (7.4-11.0) L 02/09/23 05:22 Neut % (Auto) 63.0 % (42.0-75.0) 02/09/23 05:22 Lymph % (Auto) 22.0 % (21.0-51.0) 02/09/23 05:22 [place] % (Auto) 11.4 % (0.0-13.0) 02/09/23 05:22 Eos % (Auto) 2.7 % (0.9-2.9) 02/09/23 05:22 Baso % (Auto) 0.9 % (0.2-1.0) 02/09/23 05:22 Neut # (Auto) 2.5 x10^3/uL (2.2-4.8) 02/09/23 05:22 Lymph # (Auto) 0.9 X10^3/uL (1.3-2.9) L 02/09/23 05:22 [place] # (Auto) 0.5 x10^3/uL (0.3-0.8) 02/09/23 05:22 Eos # (Auto) 0.1 x10^3/uL (0.0-0.2) 02/09/23 05:22 Baso # (Auto) 0.0 X10^3/uL (0.0-0.1) 02/09/23 05:22 Absolute Nucleated RBC 0.7 /100WBC 02/09/23 05:22 Total Counted 100 02/04/23 14:12 Neutrophils % (Manual) 95 % (39-76) H 02/04/23 14:12 Lymphocytes % (Manual) 3 % (13-43) L 02/04/23 14:12 Monocytes % (Manual) 2 % (4-9) L 02/04/23 14:12 Plt Morphology Comment Normal (NORMAL) 02/04/23 14:12 RBC Morphology Normal (NORMAL) 02/04/23 14:12 Sodium 139 mmol/L (136-145) 02/09/23 05:22 Corrected Sodium 139 mmol/L (136-145) 02/09/23 05:22 Potassium 3.6 mmol/L (3.5-5.1) 02/09/23 05:22 Chloride 98 mmol/L (98-107) 02/09/23 05:22 Carbon Dioxide 34.0 mmol/L (21-32) H 02/09/23 05:22 BUN 10 mg/dL (7-18) 02/09/23 05:22 Creatinine 0.89 mg/dL (0.70-1.30) 02/09/23 05:22 Est GFR (MDRD) Af Amer > 60 (>60) 02/09/23 05:22 Est GFR (MDRD) Non-Af > 60 (>60) 02/09/23 05:22 Glucose 114 mg/dL (65-99) H 02/09/23 05:22 POC Glucose (mg/dL) 117 mg/dL (65-99) H 02/09/23 05:27 Lactic Acid 1.0 mmol/L (0.4-2.0) 02/05/23 04:42 Calcium 8.9 mg/dL (8.5-10.1) 02/09/23 05:22 Corrected Calcium 9.8 mg/dL (8.5-10.1) 02/09/23 05:22 Magnesium 1.7 mg/dL (2.0-2.9) L 02/09/23 05:22 Total Bilirubin 0.20 mg/dL (0.2-1.0) 02/09/23 05:22 AST 13 Units/L (15-37) L 02/09/23 05:22 ALT 23 Units/L (12-78) 02/09/23 05:22 Alkaline Phosphatase 107 Units/L (46-116) 02/09/23 05:22 Total Protein 6.4 g/dL (6.4-8.2) 02/09/23 05:22 Albumin 2.9 g/dL (3.4-5.0) L 02/09/23 05:22 Globulin 3.5 g/dL (2.5-4.5) 02/09/23 05:22 Albumin/Globulin Ratio 0.8 Ratio (1.1-2.1) L 02/09/23 05:22 Specimen Type Clean catch urine 02/04/23 14:36 Urine Color Yellow (YELLOW) 02/04/23 14:36 Urine Appearance Clear (CLEAR) 02/04/23 14:36 Urine pH 5.0 (5.0 - 8.0) 02/04/23 14:36 Ur Specific [place] 1.015 (1.000-1.030) 02/04/23 14:36 Urine Protein 2+ (NEGATIVE) 02/04/23 14:36 Urine Glucose (UA) 4+ (NEGATIVE) 02/04/23 14:36 Urine Ketones 4+ (NEGATIVE) 02/04/23 14:36 Urine Blood 2+ (NEGATIVE) 02/04/23 14:36 Urine Nitrite Negative (NEGATIVE) 02/04/23 14:36 Urine Bilirubin Negative (NEGATIVE) 02/04/23 14:36 Urine Urobilinogen Normal (NORMAL) 02/04/23 14:36 Ur Leukocyte Esterase Negative (NEGATIVE) 02/04/23 14:36 Urine RBC None seen /HPF (0-3) 02/04/23 14:36 Urine WBC None seen /HPF (0-5) 02/04/23 14:36 Ur Squamous Epith Cells Negative /HPF (NEGATIVE) 02/04/23 14:36 Urine Bacteria Negative /HPF (NEGATIVE) 02/04/23 14:36 Ur Culture Indicated? No/not indicated 02/04/23 14:36 Acetone, Semi-Quant Small (NEGATIVE) H 02/04/23 14:12 SARS-CoV-2 (PCR) Negative (NEGATIVE) 02/04/23 14:49 Influenza Type A (PCR) Negative (NEGATIVE) 02/04/23 14:49 Influenza Type B (PCR) Negative (NEGATIVE) 02/04/23 14:49 RSV (PCR) Negative (NEGATIVE) 02/04/23 14:49 Tissue Pathology See comment. 02/06/23 11:38 - Plan (1) Diabetic ulcer of left foot Status: Acute Qualifiers: Diabetic foot ulcer location: toe Diabetes mellitus type: type 2 Non- pressure ulcer stage: unspecified non-pressure ulcer stage Qualified Code(s): E11.621 - Type 2 diabetes mellitus with foot ulcer; L97.529 - Non-pressure chronic ulcer of other part of left foot with unspecified severity Plan: IV antibiotics, wound care, blood sugar control. s/p wound debridement per Dr. Moreno x 3 days. obtain lower extremity mri today. resume home meds (2) Diabetes Status: Acute Qualifiers: Diabetes mellitus type: type 2 Diabetes mellitus archeologist classical insulin use: with penitentiary use Diabetes mellitus complication status: with skin complications Diabetes mellitus complication detail: with foot ulcer Qualified Code(s): E11.621 - Type 2 diabetes mellitus with foot ulcer; L97.509 - Non-pressure chronic ulcer of other part of unspecified foot with unspecified severity; Z79.4 - [facility] (current) use of insulin (3) Charcot foot due to diabetes mellitus Status: Acute (4) HTN (hypertension) Status: Chronic Qualifiers: Hypertension type: primary hypertension Qualified Code(s): I10 - Essential (primary) hypertension Plan: lisinopril 20mg bid, amlodipine 5mg daily (5) Dyslipidemia Status: Chronic (6) Hypothyroidism Status: Chronic Qualifiers: Hypothyroidism type: acquired Qualified Code(s): E03.9 - Hypothyroidism, unspecified (7) Tracheostomy in place Status: Chronic
[2023-02-09] MEDS: NovoLIN R (or HumuLIN R) SUBCUT PRN ×2 (13:49→16:47)
--- NOTE | 2023-02-09 14:13 | MRI ---
Exam:EXT LOWER JOINT W W/O CONIndication: left foot osteomyelitsComparison: [CT dated 02/08/2023]Technique:Multiplanar, multisequence imaging of the left forefoot before and after intravenous injection of 16 cc of MultiHance.Findings:[Previous amputation of the great toe at the MTP joint without localizing soft tissue swelling or marrow signal abnormality to suggest osteomyelitis. There is proximal retraction of the medial and lateral sesamoids.The 2nd toe demonstrates bony remodeling with synovial hypertrophy and thickening of the MTP joint. There is no definite marrow signal changes to suggest acute osteomyelitis.Third toe demonstrates no localizing soft tissue swelling or abnormal marrow signal.There is moderate skin breakdown, ulceration and surrounding soft tissue edema and enhancement within the lateral forefoot at the level of the 5th toe MTP joint. There is increased enhancement of the 5th toe metatarsal head and proximal phalanx with moderate decreased in T1 signal consistent with acute osteomyelitis/septic arthritis.Artifact is noted between the 1st and 2nd toes makes evaluation of the phalanges of the 2nd toe and distal 1st toe limited.No localizing marrow signal abnormality within the mid or hindfoot. Lisfranc ligament is intact. Peroneal tendons are intact. Achilles tendon is normal.Tibiotalar joint demonstrates no significant DJD or subchondral bone marrow signal abnormality.IMPRESSIONUlceration and skin breakdown within lateral aspect of the forefoot with cellulitis of the lateral forefoot and adjacent septic arthritis/osteomyelitis of the little toe MTP joint. There is normal marrow signal within the proximal or mid little toe metatarsal diaphysis.Metallic susceptibility artifact between the 1st and 2nd toes makes visualization of the 2nd toe limited, there is soft tissue infection/swelling surrounding the 2nd toe metatarsal head; exclusion of osteomyelitis of the 2nd toe is not possible on this examination.Previous amputation of the great toe the MTP joint without evidence of osteomyelitis or surrounding soft tissue infection.Bony remodeling and synovial hypertrophy of the 2nd toe MTP joint likely in the setting of chronic osteomyelitis, no surrounding inflammatory change/infection or MR evidence to suggest acute osteomyelitis.Electronically signed by: PURA DILLARD (Feb 09, 2023 14:07:29)
[2023-02-09] MEDS: SNACK - Diabetic Appropriate PO SCH (20:35)
[2023-02-09] MEDS: LIPITOR TAB 10 MG PO SCH (21:15)
[2023-02-09] MEDS: LANTUS SC SCH (21:19)
[2023-02-10] MEDS: BACTROBAN TOPICAL OINT EXT SCH ×2 (01:18→05:50)
[2023-02-10] MEDS: NS 1,000 ML IV 1,000 ML IV SCH (05:49)
[2023-02-10 06:09] LABS: BASOPHILS # (AUTO) 0.1 X10^3/uL (0.0-0.1); BASOPHILS % (AUTO) 1.2 % (0.2-1.0); EOSINOPHILS # (AUTO) 0.2 x10^3/uL (0.0-0.2); HEMATOCRIT 37.9 % (42.0-54.0); HEMOGLOBIN 13.1 g/dL (13.5-18.0); LYMPHOCYTES # (AUTO) 1.3 X10^3/uL (1.3-2.9); LYMPHOCYTES % (AUTO) 28.9 % (21.0-51.0); MEAN CORPUSCULAR HEMOGLOBIN 29.3 pg (27.0-34.0); MEAN CORPUSCULAR HGB CONC 34.6 g/dL (33.0-35.0); MEAN CORPUSCULAR VOLUME 84.7 fL (80.0-100.0); MEAN PLATELET VOLUME 6.6 fL (7.4-11.0); MONOCYTES # (AUTO) 0.5 x10^3/uL (0.3-0.8); MONOCYTES % (AUTO) 11.7 % (0.0-13.0); NEUTROPHILS # (AUTO) 2.5 x10^3/uL (2.2-4.8); NEUTROPHILS % (AUTO) 54.2 % (42.0-75.0); RED BLOOD COUNT 4.47 X10^6/uL (4.7-6.0); RED CELL DISTRIBUTION WIDTH 13.1 % (11.6-16.5); WHITE BLOOD COUNT 4.5 X10^3/uL (3.6-10.0)
[2023-02-10 06:24] LABS: ALANINE AMINOTRANSFERASE 20 Units/L (12-78); ALBUMIN 2.9 g/dL (3.4-5.0); ALKALINE PHOSPHATASE 108 Units/L (46-116); ASPARTATE AMINO TRANSFERASE 9 Units/L (15-37); BLOOD UREA NITROGEN 12 mg/dL (7-18); CALCIUM 8.8 mg/dL (8.5-10.1); CARBON DIOXIDE 32.5 mmol/L (21-32); CHLORIDE 101 mmol/L (98-107); COR CA(FOR HYPOALB) 9.7 mg/dL (8.5-10.1); COR NA(FOR HYPERGLY) 139 mmol/L (136-145); CREATININE 0.91 mg/dL (0.70-1.30); SODIUM 138 mmol/L (136-145); TOTAL PROTEIN 6.4 g/dL (6.4-8.2); eGFR NON BLACK RACES > 60 (>60)
[2023-02-10 08:18] VITALS: BP 125/70
[2023-02-10] MEDS: NORVASC TAB 5 MG PO SCH (08:39)
[2023-02-10] MEDS: ZESTRIL TAB 10 MG PO SCH (08:39)
[2023-02-10] MEDS: LEVAQUIN PREMIX IV 750 MG 750 MG/150 ML BAG IV SCH (08:39)
== END 2023-02-10 11:15 | disposition home health service (06) | DRG 854 ==
LOC: MED/SURG 13:26 → ER 13:26 → MED/SURG 16:59
PROVIDERS: ADMIT Internal Medicine; ATTEND Internal Medicine
DX: Z79.4 Long term (current) use of insulin; E03.8 Other specified hypothyroidism; L03.116 Cellulitis of left lower limb; E11.610 Type 2 diabetes mellitus with diabetic neuropathic arthropathy; A41.01 Sepsis due to Methicillin susceptible Staphylococcus aureus; Z93.0 Tracheostomy status; B96.89 Other specified bacterial agents as the cause of diseases classified elsewhere; I10 Essential (primary) hypertension; R00.1 Bradycardia, unspecified; Z85.21 Personal history of malignant neoplasm of larynx; L97.529 Non-pressure chronic ulcer of other part of left foot with unspecified severity; Z20.822 Contact with and (suspected) exposure to COVID-19; E78.2 Mixed hyperlipidemia

== ENCOUNTER 2024-02-03 20:53 | Observation (INO) ==
--- NOTE | 2024-02-03 21:27 | DR.EXTPAIN ---
HPI Time seen Time Seen by Provider: 02/03/24 21:26 PCP Primary Care Physician: Malena Complaint/Symptoms Chief Complaint:: pt stated he was a diabetic and he noticed a blister on his left foot. COVID-19 Coronavirus risk:travel/contact w/high risk person: No Has patient experienced Coronavirus symptoms: No Nurses notes reviewed Nurses Notes Review: Yes Source History Provided: Patient Mode of arrival Mode of Arrival: Ambulatory Timing Onset of Chief Complaint: 02/03/24 PMH PMH Past Medical History: Yes Past Medical History: Diabetes, Dyslipidemia and Hypertension Past Surgical History: Yes Surgical History: Cholecystectomy and Other Past Surgical History Comment: 2 toes removed, trach, Family History History of Family Medical Conditions: Yes Family Medical History: Cancer, [place], Heart Failure and Hypertension Social History Does patient currently use any type of tobacco product: No Have you used tobacco products in the last 12 months: No Type of Tobacco Use: None Does any household member use tobacco: No Alcohol Use: None Do you use any recreational Drugs:: No Lives With: Family Lives Where: Home Travel Risk Coronavirus risk:travel/contact w/high risk person: No Has patient experienced Coronavirus symptoms: No Infectious screening In the last 2 months have you had wt loss of >10#?: NO Have you had fever, night sweats or hemotysis?: No Have you traveled outside the country in the last 6 months?: No Isolation: Standard PE Vital Signs Vitals: Vital Signs Temperature 97.9 F Pulse Rate 89 Pulse Rate 85 Pulse Rate 94 Pulse Rate 90 Pulse Rate 84 Pulse Rate 81 Pulse Rate 85 Pulse Rate 84 Pulse Rate 88 Respiratory Rate 16 Blood Pressure [Right Arm] 163/83 Blood Pressure [Right Arm] 170/86 Blood Pressure 155/87 Blood Pressure 163/83 Blood Pressure 178/96 Blood Pressure 178/96 Blood Pressure 190/102 Blood Pressure 196/106 Blood Pressure 190/104 O2 Sat by Pulse Oximetry 97 O2 Sat by Pulse Oximetry 96 O2 Sat by Pulse Oximetry 100 O2 Sat by Pulse Oximetry 99 O2 Sat by Pulse Oximetry 99 O2 Sat by Pulse Oximetry 100 O2 Sat by Pulse Oximetry 97 O2 Sat by Pulse Oximetry 96 O2 Sat by Pulse Oximetry 97 ROR Labs Reviewed 02/03/24 21:40 02/03/24 21:40 Laboratory: WBC 6.1 X10^3/uL (3.6-10.0) 02/03/24 21:40 RBC 4.31 X10^6/uL (4.7-6.0) L 02/03/24 21:40 Hgb 13.3 g/dL (13.5-18.0) L 02/03/24 21:40 Hct 39.2 % (42.0-54.0) L 02/03/24 21:40 MCV 90.8 fL (80.0-100.0) 02/03/24 21:40 MCH 30.8 pg (27.0-34.0) 02/03/24 21:40 MCHC 33.9 g/dL (33.0-35.0) 02/03/24 21:40 RDW 12.9 % (11.6-16.5) 02/03/24 21:40 Plt Count 232 X10^3/uL (150.0-450.0) 02/03/24 21:40 MPV 6.8 fL (7.4-11.0) L 02/03/24 21:40 Neut % (Auto) 67.0 % (42.0-75.0) 02/03/24 21:40 Lymph % (Auto) 19.7 % (21.0-51.0) L 02/03/24 21:40 [place] % (Auto) 8.5 % (0.0-13.0) 02/03/24 21:40 Eos % (Auto) 3.9 % (0.9-2.9) H 02/03/24 21:40 Baso % (Auto) 0.9 % (0.2-1.0) 02/03/24 21:40 Neut # (Auto) 4.1 x10^3/uL (2.2-4.8) 02/03/24 21:40 Lymph # (Auto) 1.2 X10^3/uL (1.3-2.9) L 02/03/24 21:40 [place] # (Auto) 0.5 x10^3/uL (0.3-0.8) 02/03/24 21:40 Eos # (Auto) 0.2 x10^3/uL (0.0-0.2) 02/03/24 21:40 Baso # (Auto) 0.1 X10^3/uL (0.0-0.1) 02/03/24 21:40 Absolute Nucleated RBC 0.0 /100WBC 02/03/24 21:40 Sodium 137 mmol/L (136-145) 02/03/24 21:40 Corrected Sodium TNP 02/03/24 21:40 Potassium 3.7 mmol/L (3.5-5.1) 02/03/24 21:40 Chloride 100 mmol/L (98-107) 02/03/24 21:40 Carbon Dioxide 29.4 mmol/L (21-32) 02/03/24 21:40 BUN 10 mg/dL (7-18) 02/03/24 21:40 Creatinine 0.84 mg/dL (0.70-1.30) 02/03/24 21:40 Est GFR (MDRD) Af Amer > 60 (>60) 02/03/24 21:40 Est GFR (MDRD) Non-Af > 60 (>60) 02/03/24 21:40 Glucose 98 mg/dL (65-99) 02/03/24 21:40 Calcium 8.6 mg/dL (8.5-10.1) 02/03/24 21:40 Corrected Calcium TNP 02/03/24 21:40 Total Bilirubin 0.40 mg/dL (0.2-1.0) 02/03/24 21:40 AST 19 Units/L (15-37) 02/03/24 21:40 ALT 32 Units/L (12-78) 02/03/24 21:40 Alkaline Phosphatase 167 Units/L (46-116) H 02/03/24 21:40 Total Protein 7.1 g/dL (6.4-8.2) 02/03/24 21:40 Albumin 3.4 g/dL (3.4-5.0) 02/03/24 21:40 Globulin 3.7 g/dL (2.5-4.5) 02/03/24 21:40 Albumin/Globulin Ratio 0.9 Ratio (1.1-2.1) L 02/03/24 21:40 Specimen Type Clean catch urine 02/03/24 22:34 Urine Color Pale yellow (YELLOW) 02/03/24 22:34 Urine Appearance Clear (CLEAR) 02/03/24 22:34 Urine pH 7.0 (5.0 - 8.0) 02/03/24 22:34 Ur Specific [place] 1.010 (1.000-1.030) 02/03/24 22:34 Urine Protein Negative (NEGATIVE) 02/03/24 22:34 Urine Glucose (UA) Negative (NEGATIVE) 02/03/24 22:34 Urine Ketones Negative (NEGATIVE) 02/03/24 22:34 Urine Blood Negative (NEGATIVE) 02/03/24 22:34 Urine Nitrite Negative (NEGATIVE) 02/03/24 22:34 Urine Bilirubin Negative (NEGATIVE) 02/03/24 22:34 Urine Urobilinogen Normal (NORMAL) 02/03/24 22:34 Ur Leukocyte Esterase Negative (NEGATIVE) 02/03/24 22:34 Opioid Opioid Risk Tool Age (Tylor box if 16-45): No History of Preadolescent Sexual Abuse: No Total: 0 Total Score Risk Category: Low Risk Copyright: Сергей ROWLAND predicting aberrant behaviors Discharge Plan Discharge Plan Patient Disposition: 01 HOME, SELF-CARE Condition: Stable Orders to Discharge Patient Discharge Orders: Transfer (Routine); Ordered 02/03/24 Ordered By: JUDIE ELLIOTT
[2024-02-03] MEDS ORDERED: NS 1,000 ML IV 1,000 ML ONE (21:44)
[2024-02-03] MEDS: NS 1,000 ML IV 1,000 ML IV SCH (21:47)
[2024-02-03] MEDS ORDERED: APRESOLINE INJ 20 MG VIAL ONE (21:54)
[2024-02-03 21:55] LABS: BASOPHILS # (AUTO) 0.1 X10^3/uL (0.0-0.1); BASOPHILS % (AUTO) 0.9 % (0.2-1.0); EOSINOPHILS # (AUTO) 0.2 x10^3/uL (0.0-0.2); EOSINOPHILS % (AUTO) 3.9 % (0.9-2.9); HEMATOCRIT 39.2 % (42.0-54.0); HEMOGLOBIN 13.3 g/dL (13.5-18.0); LYMPHOCYTES # (AUTO) 1.2 X10^3/uL (1.3-2.9); LYMPHOCYTES % (AUTO) 19.7 % (21.0-51.0); MEAN CORPUSCULAR HEMOGLOBIN 30.8 pg (27.0-34.0); MEAN CORPUSCULAR HGB CONC 33.9 g/dL (33.0-35.0); MEAN CORPUSCULAR VOLUME 90.8 fL (80.0-100.0); MEAN PLATELET VOLUME 6.8 fL (7.4-11.0); MONOCYTES # (AUTO) 0.5 x10^3/uL (0.3-0.8); MONOCYTES % (AUTO) 8.5 % (0.0-13.0); NEUTROPHILS # (AUTO) 4.1 x10^3/uL (2.2-4.8); PLATELET COUNT 232 X10^3/uL (150.0-450.0); RED BLOOD COUNT 4.31 X10^6/uL (4.7-6.0); RED CELL DISTRIBUTION WIDTH 12.9 % (11.6-16.5); WHITE BLOOD COUNT 6.1 X10^3/uL (3.6-10.0)
[2024-02-03] MEDS: APRESOLINE INJ 20 MG VIAL IVP ONE (22:01)
[2024-02-03 22:08] LABS: ALANINE AMINOTRANSFERASE 32 Units/L (12-78); ALBUMIN 3.4 g/dL (3.4-5.0); ALKALINE PHOSPHATASE 167 Units/L (46-116); ASPARTATE AMINO TRANSFERASE 19 Units/L (15-37); BLOOD UREA NITROGEN 10 mg/dL (7-18); CALCIUM 8.6 mg/dL (8.5-10.1); CARBON DIOXIDE 29.4 mmol/L (21-32); CHLORIDE 100 mmol/L (98-107); CREATININE 0.84 mg/dL (0.70-1.30); GLUCOSE 98 mg/dL (65-99); POTASSIUM 3.7 mmol/L (3.5-5.1); SODIUM 137 mmol/L (136-145); TOTAL PROTEIN 7.1 g/dL (6.4-8.2); eGFR NON BLACK RACES > 60 (>60)
[2024-02-03 22:46] LABS: BILIRUBIN,URINE NEGATIVE (NEGATIVE); BLOOD/HEMOGLOBIN,URINE NEGATIVE (NEGATIVE); GLUCOSE, URINE NEGATIVE (NEGATIVE); KETONES,URINE NEGATIVE (NEGATIVE); LEUKOCYTE ESTERASE ,URINE NEGATIVE (NEGATIVE); NITRITES,URINE NEGATIVE (NEGATIVE); PROTEIN,URINE NEGATIVE (NEGATIVE); UROBILINOGEN,URINE NORMAL (NORMAL)
[2024-02-03 22:49] LABS: APPEARANCE,URINE CLEAR (CLEAR); COLOR,URINE PALE YELLOW (YELLOW)
--- NOTE | 2024-02-03 22:59 | RAD ---
EXAM: FOOT, LEFT HISTORY: Diabetic COMPARISON: None. FINDINGS: Patient is status post amputation at head of the 1st metatarsal bone. Contour irregularity is seen i nvolving distal rays of the 2nd through 5th with malalignment of the joint space at the 5th metatarso phalangeal joint. This may be secondary to an infectious process of the 5th metatarsophalangeal join t space. There is no evidence of an embedded radiopaque foreign body. IMPRESSION: Findings suggest possible infectious process of 5th metatarsophalangeal joint space. THIS IS AN ELECTRONICALLY VERIFIED FINAL REPORT 02/03/2024 10:55 PM - Electronically signed by Jack Pastrana MD
[2024-02-03] MEDS: ZOSYN VIAL 3.375 GRAMS 3.375 G in NS 100 ML IV 100 ML IV ONE (23:18)
[2024-02-03] MEDS: NS 100 ML IV 100 ML ONE (23:20)
[2024-02-03] MEDS: ZOSYN VIAL 3.375 GRAMS IV ONE (23:20)
[2024-02-04 00:57] VITALS: BMI 22.9
[2024-02-04 05:36] LABS: EOSINOPHILS # (AUTO) 0.3 x10^3/uL (0.0-0.2); EOSINOPHILS % (AUTO) 6.7 % (0.9-2.9); HEMATOCRIT 38.8 % (42.0-54.0); HEMOGLOBIN 13.3 g/dL (13.5-18.0); LYMPHOCYTES # (AUTO) 0.8 X10^3/uL (1.3-2.9); LYMPHOCYTES % (AUTO) 16.9 % (21.0-51.0); MEAN CORPUSCULAR HGB CONC 34.2 g/dL (33.0-35.0); MEAN CORPUSCULAR VOLUME 90.6 fL (80.0-100.0); MONOCYTES # (AUTO) 0.5 x10^3/uL (0.3-0.8); MONOCYTES % (AUTO) 10.3 % (0.0-13.0); NEUTROPHILS # (AUTO) 3.1 x10^3/uL (2.2-4.8); NEUTROPHILS % (AUTO) 65.1 % (42.0-75.0); PLATELET COUNT 242 X10^3/uL (150.0-450.0); RED BLOOD COUNT 4.28 X10^6/uL (4.7-6.0); RED CELL DISTRIBUTION WIDTH 13.3 % (11.6-16.5); WHITE BLOOD COUNT 4.7 X10^3/uL (3.6-10.0)
[2024-02-04] MEDS: ASPIRIN PO SCH (05:42)
[2024-02-04] MEDS: ZOSYN VIAL 3.375 GRAMS 3.375 G in NS 100 ML IV 100 ML IV SCH (05:44)
[2024-02-04 05:48] LABS: ALANINE AMINOTRANSFERASE 29 Units/L (12-78); ALBUMIN 3.1 g/dL (3.4-5.0); ALKALINE PHOSPHATASE 147 Units/L (46-116); ASPARTATE AMINO TRANSFERASE 19 Units/L (15-37); BLOOD UREA NITROGEN 9 mg/dL (7-18); CALCIUM 8.5 mg/dL (8.5-10.1); CARBON DIOXIDE 29.7 mmol/L (21-32); CHLORIDE 104 mmol/L (98-107); COR CA(FOR HYPOALB) 9.2 mg/dL (8.5-10.1); CREATININE 0.83 mg/dL (0.70-1.30); GLUCOSE 87 mg/dL (65-99); POTASSIUM 4.3 mmol/L (3.5-5.1); SODIUM 143 mmol/L (136-145); TOTAL PROTEIN 6.5 g/dL (6.4-8.2); eGFR NON BLACK RACES > 60 (>60)
[2024-02-04] MEDS: NS 500 ML IV 500 ML IV ONE (06:08)
[2024-02-04] MEDS: SYNTHROID 125 mcg TAB PO SCH (09:05)
[2024-02-04] MEDS: ZYVOX 600MG IV 600 MG/300 ML BAG IV SCH (09:05)
[2024-02-04] MEDS: LANTUS SC SCH (09:06)
[2024-02-04] MEDS: ZESTRIL TAB 20 MG PO SCH (12:05)
[2024-02-04] MEDS: NovoLIN R (or HumuLIN R) SUBCUT PRN (12:06)
[2024-02-04] MEDS: ZESTRIL TAB 20 MG ONE (12:07)
[2024-02-04] MEDS: TOPROL XL PO SCH (17:06)
[2024-02-04] MEDS: SNACK - Diabetic Appropriate PO SCH (20:27)
[2024-02-04] MEDS: LIPITOR TAB 10 MG PO SCH (20:27)
[2024-02-04] MEDS ORDERED: LANTUS SC SCH (21:00)
[2024-02-04] MEDS ORDERED: PATIENT'S HOME MEDICATION (Insulin Glargine [Lantus Solostar U-100 Insulin] 100 unit/mL (3 SUBCUT SCH (21:00)
[2024-02-05 05:07] LABS: BASOPHILS % (AUTO) 0.5 % (0.2-1.0); EOSINOPHILS # (AUTO) 0.1 x10^3/uL (0.0-0.2); EOSINOPHILS % (AUTO) 2.5 % (0.9-2.9); HEMATOCRIT 39.8 % (42.0-54.0); HEMOGLOBIN 13.3 g/dL (13.5-18.0); LYMPHOCYTES # (AUTO) 0.4 X10^3/uL (1.3-2.9); LYMPHOCYTES % (AUTO) 8.7 % (21.0-51.0); MEAN CORPUSCULAR HEMOGLOBIN 30.8 pg (27.0-34.0); MEAN CORPUSCULAR HGB CONC 33.3 g/dL (33.0-35.0); MEAN CORPUSCULAR VOLUME 92.4 fL (80.0-100.0); MEAN PLATELET VOLUME 7.1 fL (7.4-11.0); MONOCYTES # (AUTO) 0.4 x10^3/uL (0.3-0.8); MONOCYTES % (AUTO) 7.4 % (0.0-13.0); NEUTROPHILS % (AUTO) 80.9 % (42.0-75.0); PLATELET COUNT 232 X10^3/uL (150.0-450.0); RED BLOOD COUNT 4.31 X10^6/uL (4.7-6.0); RED CELL DISTRIBUTION WIDTH 13.2 % (11.6-16.5)
[2024-02-05 05:20] LABS: ALANINE AMINOTRANSFERASE 28 Units/L (12-78); ALKALINE PHOSPHATASE 138 Units/L (46-116); ASPARTATE AMINO TRANSFERASE 17 Units/L (15-37); BLOOD UREA NITROGEN 16 mg/dL (7-18); CALCIUM 8.5 mg/dL (8.5-10.1); CARBON DIOXIDE 30.3 mmol/L (21-32); CHLORIDE 101 mmol/L (98-107); COR CA(FOR HYPOALB) 9.3 mg/dL (8.5-10.1); COR NA(FOR HYPERGLY) 141 mmol/L (136-145); CREATININE 1.27 mg/dL (0.70-1.30); GLUCOSE 274 mg/dL (65-99); SODIUM 137 mmol/L (136-145); TOTAL PROTEIN 6.3 g/dL (6.4-8.2); eGFR NON BLACK RACES > 60 (>60)
[2024-02-05] MEDS ORDERED: ZESTRIL TAB 20 MG ONE (07:57)
[2024-02-05] MEDS: ASPIRIN PO SCH (08:33)
--- NOTE | 2024-02-05 09:17 | PCM.PROG ---
Progress Note Progress Note for Day of Date of Exam: 02/05/24 Subjective Subjective: Patient seen at bedside, no acute events overnight. He is being treated for left foot infection. Dr Polanco also following. He has a hx of diabetic foot infections requiring toe amputations. He is currently on IV antibiotics. MRI pending. Patient did have low glucose earlier this morning 49. He was given Ensure and crackers, came to 128. He is currently on home dose insulin and SSI. Labs/imaging reviewed -Hgb 13.3 BUN/Cr 16/1.27 Glucose 274 Plan: follow surgery recommendations, wound care/dressing changes, MRI pending. Continue IV Zosyn and Zyvox. Follow final cultures. Continue home medications. Monitor glucose. Continue SSI and home dose Lantus. Add bedtime snack. Continue gentle hydration. Monitor AM labs/imaging. Past Medical Family Social History Allergies: Allergies vancomycin Adverse Reaction (Verified 05/04/23 08:43) Vital Signs and I&O's Vital Signs: Vital Signs Temperature 97.0 F Temperature 98.6 F Pulse Rate [Right] 76 Pulse Rate [Right] 75 Respiratory Rate 19 Respiratory Rate 20 Blood Pressure [Right Arm] 117/77 Blood Pressure [Right Arm] 126/68 O2 Sat by Pulse Oximetry 96 O2 Sat by Pulse Oximetry 98 Intake and Output: Intake & Output 02/02/24 02/03/24 02/04/24 02/05/24 23:59 23:59 23:59 23:59 Intake Total 2486 / 2486 1159 / 1159 Balance 2486 / 2486 1159 / 1159 Physical Exam Oriented: Normal Eyes: Normal Nose: Normal Throat: Other (trach present ) Respiratory: Normal Cardiovascular: Normal Auscultation: Bowel Sounds: Normal Palpation: Normal Tenderness: Normal Musculoskeletal: Right (toe amputation noted ), Left (5th MTP erythema and drainage present) and Foot Psychiatric: Normal Mood Description: Calm Affect: Normal Speech Pattern: Clear and Appropriate Laboratory and Diagnostics 02/05/24 04:49 02/05/24 04:49 Labs: 02/04/24 12:50 Toe - Left Little Wound Gram Stain - Final 02/04/24 12:50 Toe - Left Little Wound Culture - Preliminary Laboratory WBC 5.0 X10^3/uL (3.6-10.0) 02/05/24 04:49 RBC 4.31 X10^6/uL (4.7-6.0) L 02/05/24 04:49 Hgb 13.3 g/dL (13.5-18.0) L 02/05/24 04:49 Hct 39.8 % (42.0-54.0) L 02/05/24 04:49 MCV 92.4 fL (80.0-100.0) 02/05/24 04:49 MCH 30.8 pg (27.0-34.0) 02/05/24 04:49 MCHC 33.3 g/dL (33.0-35.0) 02/05/24 04:49 RDW 13.2 % (11.6-16.5) 02/05/24 04:49 Plt Count 232 X10^3/uL (150.0-450.0) 02/05/24 04:49 MPV 7.1 fL (7.4-11.0) L 02/05/24 04:49 Neut % (Auto) 80.9 % (42.0-75.0) H 02/05/24 04:49 Lymph % (Auto) 8.7 % (21.0-51.0) L 02/05/24 04:49 [place] % (Auto) 7.4 % (0.0-13.0) 02/05/24 04:49 Eos % (Auto) 2.5 % (0.9-2.9) 02/05/24 04:49 Baso % (Auto) 0.5 % (0.2-1.0) 02/05/24 04:49 Neut # (Auto) 4.0 x10^3/uL (2.2-4.8) 02/05/24 04:49 Lymph # (Auto) 0.4 X10^3/uL (1.3-2.9) L 02/05/24 04:49 [place] # (Auto) 0.4 x10^3/uL (0.3-0.8) 02/05/24 04:49 Eos # (Auto) 0.1 x10^3/uL (0.0-0.2) 02/05/24 04:49 Baso # (Auto) 0.0 X10^3/uL (0.0-0.1) 02/05/24 04:49 Absolute Nucleated RBC 0.0 /100WBC 02/05/24 04:49 Sodium 137 mmol/L (136-145) 02/05/24 04:49 Corrected Sodium 141 mmol/L (136-145) 02/05/24 04:49 Potassium 4.0 mmol/L (3.5-5.1) 02/05/24 04:49 Chloride 101 mmol/L (98-107) 02/05/24 04:49 Carbon Dioxide 30.3 mmol/L (21-32) 02/05/24 04:49 BUN 16 mg/dL (7-18) 02/05/24 04:49 Creatinine 1.27 mg/dL (0.70-1.30) 02/05/24 04:49 Est GFR (MDRD) Af Amer > 60 (>60) 02/05/24 04:49 Est GFR (MDRD) Non-Af > 60 (>60) 02/05/24 04:49 Glucose 274 mg/dL (65-99) H 02/05/24 04:49 POC Glucose (mg/dL) 275 mg/dL (65-99) H 02/05/24 05:35 Calcium 8.5 mg/dL (8.5-10.1) 02/05/24 04:49 Corrected Calcium 9.3 mg/dL (8.5-10.1) 02/05/24 04:49 Total Bilirubin 0.70 mg/dL (0.2-1.0) 02/05/24 04:49 AST 17 Units/L (15-37) 02/05/24 04:49 ALT 28 Units/L (12-78) 02/05/24 04:49 Alkaline Phosphatase 138 Units/L (46-116) H 02/05/24 04:49 Total Protein 6.3 g/dL (6.4-8.2) L 02/05/24 04:49 Albumin 3.0 g/dL (3.4-5.0) L 02/05/24 04:49 Globulin 3.3 g/dL (2.5-4.5) 02/05/24 04:49 Albumin/Globulin Ratio 0.9 Ratio (1.1-2.1) L 02/05/24 04:49 Specimen Type Clean catch urine 02/03/24 22:34 Urine Color Pale yellow (YELLOW) 02/03/24 22:34 Urine Appearance Clear (CLEAR) 02/03/24 22:34 Urine pH 7.0 (5.0 - 8.0) 02/03/24 22:34 Ur Specific [place] 1.010 (1.000-1.030) 02/03/24 22:34 Urine Protein Negative (NEGATIVE) 02/03/24 22:34 Urine Glucose (UA) Negative (NEGATIVE) 02/03/24 22:34 Urine Ketones Negative (NEGATIVE) 02/03/24 22:34 Urine Blood Negative (NEGATIVE) 02/03/24 22:34 Urine Nitrite Negative (NEGATIVE) 02/03/24 22:34 Urine Bilirubin Negative (NEGATIVE) 02/03/24 22:34 Urine Urobilinogen Normal (NORMAL) 02/03/24 22:34 Ur Leukocyte Esterase Negative (NEGATIVE) 02/03/24 22:34 Plan (1) Diabetic foot ulcer: Status: Acute Qualifiers: Diabetes mellitus type: type 2 Diabetic foot ulcer location: unspecified part of foot Laterality: left Non-pressure ulcer stage: unspecified non-pressure ulcer stage Qualified Code(s): E11.621 - Type 2 diabetes mellitus with foot ulcer; L97.529 - Non-pressure chronic ulcer of other part of left foot with unspecified severity (2) Charcot foot due to diabetes mellitus: Status: Acute (3) HTN (hypertension): Status: Chronic Qualifiers: Hypertension type: primary hypertension Qualified Code(s): I10 - Essential (primary) hypertension (4) Hypothyroidism: Status: Chronic Qualifiers: Hypothyroidism type: acquired Qualified Code(s): E03.9 - Hypothyroidism, unspecified (5) Tracheostomy in place: Status: Chronic (6) Diabetes: Status: Acute Qualifiers: Diabetes mellitus complication detail: with foot ulcer Diabetes mellitus complication status: with skin complications Diabetes mellitus shelter insulin use: with shelter use Diabetes mellitus type: type 2 Qualified Code(s): E11.621 - Type 2 diabetes mellitus with foot ulcer; L97.509 - Non- pressure chronic ulcer of other part of unspecified foot with unspecified severity; Z79.4 - scraper meat (current) use of insulin
[2024-02-05] MEDS: MULTIHANCE INJ VIAL ONE (14:18)
--- NOTE | 2024-02-05 17:33 | DR.PROGNOT ---
HOSPITAL PROGRESS NOTE Progress Note for Day of: Progress Note Date: 02/05/24 Chief Complaint Chief Complaint: Patient is having mild drainage from the left foot diabetic ulcer. Culture is showing gram-positive cocci. Final report is pending. Patient is having MRI of his left foot. His blood sugar is fluctuating, he is afebrile. Left foot cellulitis is subsiding.. Past Medical Family Social History Allergies: Allergies vancomycin Adverse Reaction (Verified 05/04/23 08:43) Vital Signs Vital Signs: Vital Signs Temperature 98.6 F Temperature 97.4 F Pulse Rate [Right] 74 Pulse Rate [Right] 71 Respiratory Rate 18 Respiratory Rate 19 Blood Pressure [Right Arm] 127/75 Blood Pressure [Right Arm] 158/78 O2 Sat by Pulse Oximetry 98 O2 Sat by Pulse Oximetry 98 Physical Exam Oriented: Normal Eyes: Normal Nose: Normal Throat: Other (trach present ) Respiratory: Normal Cardiovascular: Normal GI:Auscultation: Normal GI:Palpation: Normal GI: Tenderness: Normal Musculoskeletal: Right (toe amputation noted ), Left (5th MTP erythema and drainage present) and Foot Psychiatric: Normal Mood Description: Calm Affect: Normal Speech Pattern: Clear and Appropriate Laboratory and Diagnostics 02/05/24 04:49 02/05/24 04:49 Labs: 02/03/24 22:11 Blood Blood Culture - Preliminary 02/03/24 21:40 Blood Blood Culture - Preliminary 02/04/24 12:50 Toe - Left Little Wound Gram Stain - Final 02/04/24 12:50 Toe - Left Little Wound Culture - Preliminary Laboratory WBC 5.0 X10^3/uL (3.6-10.0) 02/05/24 04:49 RBC 4.31 X10^6/uL (4.7-6.0) L 02/05/24 04:49 Hgb 13.3 g/dL (13.5-18.0) L 02/05/24 04:49 Hct 39.8 % (42.0-54.0) L 02/05/24 04:49 MCV 92.4 fL (80.0-100.0) 02/05/24 04:49 MCH 30.8 pg (27.0-34.0) 02/05/24 04:49 MCHC 33.3 g/dL (33.0-35.0) 02/05/24 04:49 RDW 13.2 % (11.6-16.5) 02/05/24 04:49 Plt Count 232 X10^3/uL (150.0-450.0) 02/05/24 04:49 MPV 7.1 fL (7.4-11.0) L 02/05/24 04:49 Neut % (Auto) 80.9 % (42.0-75.0) H 02/05/24 04:49 Lymph % (Auto) 8.7 % (21.0-51.0) L 02/05/24 04:49 [place] % (Auto) 7.4 % (0.0-13.0) 02/05/24 04:49 Eos % (Auto) 2.5 % (0.9-2.9) 02/05/24 04:49 Baso % (Auto) 0.5 % (0.2-1.0) 02/05/24 04:49 Neut # (Auto) 4.0 x10^3/uL (2.2-4.8) 02/05/24 04:49 Lymph # (Auto) 0.4 X10^3/uL (1.3-2.9) L 02/05/24 04:49 [place] # (Auto) 0.4 x10^3/uL (0.3-0.8) 02/05/24 04:49 Eos # (Auto) 0.1 x10^3/uL (0.0-0.2) 02/05/24 04:49 Baso # (Auto) 0.0 X10^3/uL (0.0-0.1) 02/05/24 04:49 Absolute Nucleated RBC 0.0 /100WBC 02/05/24 04:49 Sodium 137 mmol/L (136-145) 02/05/24 04:49 Corrected Sodium 141 mmol/L (136-145) 02/05/24 04:49 Potassium 4.0 mmol/L (3.5-5.1) 02/05/24 04:49 Chloride 101 mmol/L (98-107) 02/05/24 04:49 Carbon Dioxide 30.3 mmol/L (21-32) 02/05/24 04:49 BUN 16 mg/dL (7-18) 02/05/24 04:49 Creatinine 1.27 mg/dL (0.70-1.30) 02/05/24 04:49 Est GFR (MDRD) Af Amer > 60 (>60) 02/05/24 04:49 Est GFR (MDRD) Non-Af > 60 (>60) 02/05/24 04:49 Glucose 274 mg/dL (65-99) H 02/05/24 04:49 POC Glucose (mg/dL) 240 mg/dL (65-99) H 02/05/24 16:56 Calcium 8.5 mg/dL (8.5-10.1) 02/05/24 04:49 Corrected Calcium 9.3 mg/dL (8.5-10.1) 02/05/24 04:49 Total Bilirubin 0.70 mg/dL (0.2-1.0) 02/05/24 04:49 AST 17 Units/L (15-37) 02/05/24 04:49 ALT 28 Units/L (12-78) 02/05/24 04:49 Alkaline Phosphatase 138 Units/L (46-116) H 02/05/24 04:49 Total Protein 6.3 g/dL (6.4-8.2) L 02/05/24 04:49 Albumin 3.0 g/dL (3.4-5.0) L 02/05/24 04:49 Globulin 3.3 g/dL (2.5-4.5) 02/05/24 04:49 Albumin/Globulin Ratio 0.9 Ratio (1.1-2.1) L 02/05/24 04:49 Specimen Type Clean catch urine 02/03/24 22:34 Urine Color Pale yellow (YELLOW) 02/03/24 22:34 Urine Appearance Clear (CLEAR) 02/03/24 22:34 Urine pH 7.0 (5.0 - 8.0) 02/03/24 22:34 Ur Specific [place] 1.010 (1.000-1.030) 02/03/24 22:34 Urine Protein Negative (NEGATIVE) 02/03/24 22:34 Urine Glucose (UA) Negative (NEGATIVE) 02/03/24 22:34 Urine Ketones Negative (NEGATIVE) 02/03/24 22:34 Urine Blood Negative (NEGATIVE) 02/03/24 22:34 Urine Nitrite Negative (NEGATIVE) 02/03/24 22:34 Urine Bilirubin Negative (NEGATIVE) 02/03/24 22:34 Urine Urobilinogen Normal (NORMAL) 02/03/24 22:34 Ur Leukocyte Esterase Negative (NEGATIVE) 02/03/24 22:34 Assessment and Plan 1: Diabetic foot ulcer left foot with cellulitis positive for gram positive cocci, final report is pending. Awaiting MRI report. To continue local care and IV antibiotics.
[2024-02-06 05:51] LABS: BASOPHILS % (AUTO) 1.1 % (0.2-1.0); EOSINOPHILS # (AUTO) 0.3 x10^3/uL (0.0-0.2); EOSINOPHILS % (AUTO) 7.4 % (0.9-2.9); HEMATOCRIT 38.4 % (42.0-54.0); LYMPHOCYTES # (AUTO) 0.7 X10^3/uL (1.3-2.9); LYMPHOCYTES % (AUTO) 18.3 % (21.0-51.0); MEAN CORPUSCULAR HEMOGLOBIN 30.8 pg (27.0-34.0); MEAN CORPUSCULAR HGB CONC 33.9 g/dL (33.0-35.0); MEAN CORPUSCULAR VOLUME 90.8 fL (80.0-100.0); MEAN PLATELET VOLUME 7.1 fL (7.4-11.0); MONOCYTES # (AUTO) 0.4 x10^3/uL (0.3-0.8); MONOCYTES % (AUTO) 9.1 % (0.0-13.0); NEUTROPHILS # (AUTO) 2.6 x10^3/uL (2.2-4.8); NEUTROPHILS % (AUTO) 64.1 % (42.0-75.0); PLATELET COUNT 225 X10^3/uL (150.0-450.0); RED BLOOD COUNT 4.23 X10^6/uL (4.7-6.0); RED CELL DISTRIBUTION WIDTH 12.8 % (11.6-16.5)
[2024-02-06 06:04] LABS: ALANINE AMINOTRANSFERASE 31 Units/L (12-78); ALBUMIN 2.8 g/dL (3.4-5.0); ALKALINE PHOSPHATASE 130 Units/L (46-116); ASPARTATE AMINO TRANSFERASE 17 Units/L (15-37); BLOOD UREA NITROGEN 13 mg/dL (7-18); CALCIUM 8.3 mg/dL (8.5-10.1); CARBON DIOXIDE 26.8 mmol/L (21-32); CHLORIDE 103 mmol/L (98-107); COR CA(FOR HYPOALB) 9.3 mg/dL (8.5-10.1); COR NA(FOR HYPERGLY) 141 mmol/L (136-145); CREATININE 1.06 mg/dL (0.70-1.30); GLUCOSE 262 mg/dL (65-99); POTASSIUM 4.5 mmol/L (3.5-5.1); SODIUM 137 mmol/L (136-145); TOTAL PROTEIN 6.1 g/dL (6.4-8.2); eGFR NON BLACK RACES > 60 (>60)
--- NOTE | 2024-02-06 08:21 | DR.PROGNOT ---
HOSPITAL PROGRESS NOTE Progress Note for Day of: Progress Note Date: 02/06/24 Chief Complaint Chief Complaint: minimal drainage from the left foot diabetic ulcer. Culture is showing gram-positive cocci. Final report is pendin. MRI of his left foot is pending . His blood sugar is fluctuating . afebrile. Left foot cellulitis is subsiding.. Past Medical Family Social History Allergies: Allergies vancomycin Adverse Reaction (Verified 05/04/23 08:43) Vital Signs Vital Signs: Vital Signs Temperature 97.8 F Temperature 97.8 F Pulse Rate [Right] 64 Pulse Rate [Right] 64 Respiratory Rate 21 Respiratory Rate 21 Blood Pressure [Right Arm] 124/71 Blood Pressure [Right Arm] 124/71 O2 Sat by Pulse Oximetry 98 O2 Sat by Pulse Oximetry 98 Physical Exam Oriented: Normal Eyes: Normal Nose: Normal Throat: Other (trach present ) Respiratory: Normal Cardiovascular: Normal GI:Auscultation: Normal GI:Palpation: Normal GI: Tenderness: Normal Musculoskeletal: Right (toe amputation noted ), Left (5th MTP erythema and drainage present) and Foot Psychiatric: Normal Mood Description: Calm Affect: Normal Speech Pattern: Clear and Appropriate Laboratory and Diagnostics 02/06/24 05:27 02/06/24 05:27 Labs: 02/04/24 12:50 Toe - Left Little Wound Gram Stain - Final 02/04/24 12:50 Toe - Left Little Wound Culture - Preliminary 02/03/24 22:11 Blood Blood Culture - Preliminary 02/03/24 21:40 Blood Blood Culture - Preliminary Laboratory WBC 4.0 X10^3/uL (3.6-10.0) 02/06/24 05:27 RBC 4.23 X10^6/uL (4.7-6.0) L 02/06/24 05:27 Hgb 13.0 g/dL (13.5-18.0) L 02/06/24 05:27 Hct 38.4 % (42.0-54.0) L 02/06/24 05:27 MCV 90.8 fL (80.0-100.0) 02/06/24 05:27 MCH 30.8 pg (27.0-34.0) 02/06/24 05:27 MCHC 33.9 g/dL (33.0-35.0) 02/06/24 05:27 RDW 12.8 % (11.6-16.5) 02/06/24 05:27 Plt Count 225 X10^3/uL (150.0-450.0) 02/06/24 05:27 MPV 7.1 fL (7.4-11.0) L 02/06/24 05:27 Neut % (Auto) 64.1 % (42.0-75.0) 02/06/24 05:27 Lymph % (Auto) 18.3 % (21.0-51.0) L 02/06/24 05:27 [place] % (Auto) 9.1 % (0.0-13.0) 02/06/24 05:27 Eos % (Auto) 7.4 % (0.9-2.9) H 02/06/24 05:27 Baso % (Auto) 1.1 % (0.2-1.0) H 02/06/24 05:27 Neut # (Auto) 2.6 x10^3/uL (2.2-4.8) 02/06/24 05:27 Lymph # (Auto) 0.7 X10^3/uL (1.3-2.9) L 02/06/24 05:27 [place] # (Auto) 0.4 x10^3/uL (0.3-0.8) 02/06/24 05:27 Eos # (Auto) 0.3 x10^3/uL (0.0-0.2) H 02/06/24 05:27 Baso # (Auto) 0.0 X10^3/uL (0.0-0.1) 02/06/24 05:27 Absolute Nucleated RBC 0.0 /100WBC 02/06/24 05:27 Sodium 137 mmol/L (136-145) 02/06/24 05:27 Corrected Sodium 141 mmol/L (136-145) 02/06/24 05:27 Potassium 4.5 mmol/L (3.5-5.1) 02/06/24 05:27 Chloride 103 mmol/L (98-107) 02/06/24 05:27 Carbon Dioxide 26.8 mmol/L (21-32) 02/06/24 05:27 BUN 13 mg/dL (7-18) 02/06/24 05:27 Creatinine 1.06 mg/dL (0.70-1.30) 02/06/24 05:27 Est GFR (MDRD) Af Amer > 60 (>60) 02/06/24 05:27 Est GFR (MDRD) Non-Af > 60 (>60) 02/06/24 05:27 Glucose 262 mg/dL (65-99) H 02/06/24 05:27 POC Glucose (mg/dL) 266 mg/dL (65-99) H 02/06/24 05:19 Calcium 8.3 mg/dL (8.5-10.1) L 02/06/24 05:27 Corrected Calcium 9.3 mg/dL (8.5-10.1) 02/06/24 05:27 Total Bilirubin 0.60 mg/dL (0.2-1.0) 02/06/24 05:27 AST 17 Units/L (15-37) 02/06/24 05:27 ALT 31 Units/L (12-78) 02/06/24 05:27 Alkaline Phosphatase 130 Units/L (46-116) H 02/06/24 05:27 Total Protein 6.1 g/dL (6.4-8.2) L 02/06/24 05:27 Albumin 2.8 g/dL (3.4-5.0) L 02/06/24 05:27 Globulin 3.3 g/dL (2.5-4.5) 02/06/24 05:27 Albumin/Globulin Ratio 0.8 Ratio (1.1-2.1) L 02/06/24 05:27 Specimen Type Clean catch urine 02/03/24 22:34 Urine Color Pale yellow (YELLOW) 02/03/24 22:34 Urine Appearance Clear (CLEAR) 02/03/24 22:34 Urine pH 7.0 (5.0 - 8.0) 02/03/24 22:34 Ur Specific [place] 1.010 (1.000-1.030) 02/03/24 22:34 Urine Protein Negative (NEGATIVE) 02/03/24 22:34 Urine Glucose (UA) Negative (NEGATIVE) 02/03/24 22:34 Urine Ketones Negative (NEGATIVE) 02/03/24 22:34 Urine Blood Negative (NEGATIVE) 02/03/24 22:34 Urine Nitrite Negative (NEGATIVE) 02/03/24 22:34 Urine Bilirubin Negative (NEGATIVE) 02/03/24 22:34 Urine Urobilinogen Normal (NORMAL) 02/03/24 22:34 Ur Leukocyte Esterase Negative (NEGATIVE) 02/03/24 22:34 Assessment and Plan 1: Diabetic foot ulcer left foot with cellulitis positive for gram positive cocci, final report is pending. Awaiting MRI report. To continue local care and IV antibiotics. f/u in one week ..
[2024-02-06] MEDS ORDERED: ZESTRIL TAB 20 MG ONE (08:45)
[2024-02-06] MEDS: APRESOLINE INJ 20 MG VIAL IVP PRN (11:44)
--- NOTE | 2024-02-06 16:01 | MRI ---
EXAM: MRI OF THE RIGHT forefoot WITHOUT CONTRAST HISTORY: CELLULITIS OF LEFT FOOT CONTRAST-MULITHANCE 16CC INJECTED INTO RIGHT AC ; COMPARISON: Foot radiograph February 03, 2024 TECHNIQUE: Multisequence, multiplanar MR images were acquired through the right ankle/ hindfoot without contrast . FINDINGS: BONE: Postoperative changes 1st toe amputation noted. There is no MR evidence of fracture, stress fr acture, or avascular necrosis. No definite MR evidence of osteomyelitis. MUSCLE/SOFT TISSUE: Atrophy of the intrinsic musculature is noted, suggesting chronic denervation. S mall plantar skin ulcer is noted superficial to the 4th metatarsal head. Adjacent skin thickening is noted suggesting mild findings of cellulitis. No drainable fluid collection or significant sinus tr act deep to the ulcer. TENDONS: Visualized flexor and extensor tendons appear normal given findings of great toe amputation. JOINT SPACE:Dorsal dislocation at the 2nd metatarsophalangeal joint noted. Reactive marrow edema not ed within the 2nd metatarsal head. No communication overlying ulcer identified to suggest osteomyeli tis. Cock-up deformities noted within the lesser toes. Dorsal dislocation is seen at the 5th metata rsophalangeal joint. Moderate midfoot arthropathy is noted with multifocal subchondral arthropathic edema. NEUROVASCULAR: Visualized neurovascular structures are normal. IMPRESSION: Plantar lateral forefoot soft tissue ulcer is noted superficial to the 4th metatarsal head without ev idence of osteomyelitis. Postoperative changes of great toe amputation. Malalignment noted at the forefoot with dorsal dislocation at the 2nd and 5th metatarsophalangeal wilmer nts and cock-up deformities involving the remainder of the lesser toes. Evidence of chronic neuropathy with midfoot arthropathy and atrophy of the intrinsic musculature. No drainable fluid collection identified. THIS IS AN ELECTRONICALLY VERIFIED FINAL REPORT 02/06/2024 3:58 PM - Electronically signed by Reed Emerson MD
--- NOTE | 2024-02-06 16:40 | PCM.PROG ---
Progress Note Progress Note for Day of Date of Exam: 02/06/24 Subjective Subjective: Patient seen at bedside, no acute events overnight. He is being treated for left foot infection. Dr Polanco also following. He is currently on IV antibiotics. MRI pending. Final wound cultures pending. Labs/imaging reviewed -Hgb 13 BUN/Cr 13/1.06 Glucose 262 Plan: follow surgery recommendations, wound care/dressing changes, MRI pending. Continue IV Zosyn and Zyvox. Follow final cultures. Continue home medications. Monitor glucose. Continue SSI and home dose Lantus. Continue gentle hydration. Monitor AM labs/imaging. Past Medical Family Social History Allergies: Allergies vancomycin Adverse Reaction (Verified 05/04/23 08:43) Vital Signs and I&O's Vital Signs: Vital Signs Temperature 97.8 F Temperature 97.6 F Pulse Rate [Right] 73 Pulse Rate [Right] 86 Pulse Rate [Right] 83 Pulse Rate [Right] 77 Pulse Rate [Right] 82 Pulse Rate [Right] 75 Pulse Rate [Right] 75 Pulse Rate [Right] 61 Respiratory Rate 18 Respiratory Rate 18 Blood Pressure [Left Arm] 138/76 Blood Pressure [Left Arm] 143/76 Blood Pressure [Left Arm] 146/81 Blood Pressure [Left Arm] 138/74 Blood Pressure [Left Arm] 143/77 Blood Pressure [Left Arm] 139/76 Blood Pressure [Left Arm] 161/81 Blood Pressure [Left Arm] 212/110 Blood Pressure [Left Arm] 192/97 O2 Sat by Pulse Oximetry 98 O2 Sat by Pulse Oximetry 99 Intake and Output: Intake & Output 02/03/24 02/04/24 02/05/24 02/06/24 23:59 23:59 23:59 23:59 Intake Total 2486 / 2486 3957 / 3957 1349 / 1349 Output Total 420 / 420 Balance 2486 / 2486 3537 / 3537 1349 / 1349 Physical Exam Oriented: Normal Eyes: Normal Nose: Normal Throat: Other (trach present ) Respiratory: Normal Cardiovascular: Normal Auscultation: Bowel Sounds: Normal Tenderness: Normal Musculoskeletal: Right (toe amputation noted ), Left (5th MTP erythema and drainage present) and Foot Psychiatric: Normal Mood Description: Calm Affect: Normal Speech Pattern: Clear and Appropriate Laboratory and Diagnostics 02/06/24 05:27 02/06/24 05:27 Labs: 02/04/24 12:50 Toe - Left Little Wound Gram Stain - Final 02/04/24 12:50 Toe - Left Little Wound Culture - Preliminary 02/03/24 22:11 Blood Blood Culture - Preliminary 02/03/24 21:40 Blood Blood Culture - Preliminary Laboratory WBC 4.0 X10^3/uL (3.6-10.0) 02/06/24 05:27 RBC 4.23 X10^6/uL (4.7-6.0) L 02/06/24 05:27 Hgb 13.0 g/dL (13.5-18.0) L 02/06/24 05:27 Hct 38.4 % (42.0-54.0) L 02/06/24 05:27 MCV 90.8 fL (80.0-100.0) 02/06/24 05:27 MCH 30.8 pg (27.0-34.0) 02/06/24 05:27 MCHC 33.9 g/dL (33.0-35.0) 02/06/24 05:27 RDW 12.8 % (11.6-16.5) 02/06/24 05:27 Plt Count 225 X10^3/uL (150.0-450.0) 02/06/24 05:27 MPV 7.1 fL (7.4-11.0) L 02/06/24 05:27 Neut % (Auto) 64.1 % (42.0-75.0) 02/06/24 05:27 Lymph % (Auto) 18.3 % (21.0-51.0) L 02/06/24 05:27 [place] % (Auto) 9.1 % (0.0-13.0) 02/06/24 05:27 Eos % (Auto) 7.4 % (0.9-2.9) H 02/06/24 05:27 Baso % (Auto) 1.1 % (0.2-1.0) H 02/06/24 05:27 Neut # (Auto) 2.6 x10^3/uL (2.2-4.8) 02/06/24 05:27 Lymph # (Auto) 0.7 X10^3/uL (1.3-2.9) L 02/06/24 05:27 [place] # (Auto) 0.4 x10^3/uL (0.3-0.8) 02/06/24 05:27 Eos # (Auto) 0.3 x10^3/uL (0.0-0.2) H 02/06/24 05:27 Baso # (Auto) 0.0 X10^3/uL (0.0-0.1) 02/06/24 05:27 Absolute Nucleated RBC 0.0 /100WBC 02/06/24 05:27 Sodium 137 mmol/L (136-145) 02/06/24 05:27 Corrected Sodium 141 mmol/L (136-145) 02/06/24 05:27 Potassium 4.5 mmol/L (3.5-5.1) 02/06/24 05:27 Chloride 103 mmol/L (98-107) 02/06/24 05:27 Carbon Dioxide 26.8 mmol/L (21-32) 02/06/24 05:27 BUN 13 mg/dL (7-18) 02/06/24 05:27 Creatinine 1.06 mg/dL (0.70-1.30) 02/06/24 05:27 Est GFR (MDRD) Af Amer > 60 (>60) 02/06/24 05:27 Est GFR (MDRD) Non-Af > 60 (>60) 02/06/24 05:27 Glucose 262 mg/dL (65-99) H 02/06/24 05:27 POC Glucose (mg/dL) 336 mg/dL (65-99) H 02/06/24 11:35 Calcium 8.3 mg/dL (8.5-10.1) L 02/06/24 05:27 Corrected Calcium 9.3 mg/dL (8.5-10.1) 02/06/24 05:27 Total Bilirubin 0.60 mg/dL (0.2-1.0) 02/06/24 05:27 AST 17 Units/L (15-37) 02/06/24 05:27 ALT 31 Units/L (12-78) 02/06/24 05:27 Alkaline Phosphatase 130 Units/L (46-116) H 02/06/24 05:27 Total Protein 6.1 g/dL (6.4-8.2) L 02/06/24 05:27 Albumin 2.8 g/dL (3.4-5.0) L 02/06/24 05:27 Globulin 3.3 g/dL (2.5-4.5) 02/06/24 05:27 Albumin/Globulin Ratio 0.8 Ratio (1.1-2.1) L 02/06/24 05:27 Specimen Type Clean catch urine 02/03/24 22:34 Urine Color Pale yellow (YELLOW) 02/03/24 22:34 Urine Appearance Clear (CLEAR) 02/03/24 22:34 Urine pH 7.0 (5.0 - 8.0) 02/03/24 22:34 Ur Specific [place] 1.010 (1.000-1.030) 02/03/24 22:34 Urine Protein Negative (NEGATIVE) 02/03/24 22:34 Urine Glucose (UA) Negative (NEGATIVE) 02/03/24 22:34 Urine Ketones Negative (NEGATIVE) 02/03/24 22:34 Urine Blood Negative (NEGATIVE) 02/03/24 22:34 Urine Nitrite Negative (NEGATIVE) 02/03/24 22:34 Urine Bilirubin Negative (NEGATIVE) 02/03/24 22:34 Urine Urobilinogen Normal (NORMAL) 02/03/24 22:34 Ur Leukocyte Esterase Negative (NEGATIVE) 02/03/24 22:34 Plan (1) Diabetic foot ulcer: Status: Acute Qualifiers: Diabetes mellitus type: type 2 Diabetic foot ulcer location: unspecified part of foot Laterality: left Non-pressure ulcer stage: unspecified non-pressure ulcer stage Qualified Code(s): E11.621 - Type 2 diabetes mellitus with foot ulcer; L97.529 - Non-pressure chronic ulcer of other part of left foot with unspecified severity (2) Charcot foot due to diabetes mellitus: Status: Acute (3) HTN (hypertension): Status: Chronic Qualifiers: Hypertension type: primary hypertension Qualified Code(s): I10 - Essential (primary) hypertension (4) Hypothyroidism: Status: Chronic Qualifiers: Hypothyroidism type: acquired Qualified Code(s): E03.9 - Hypothyroidism, unspecified (5) Tracheostomy in place: Status: Chronic (6) Diabetes: Status: Acute Qualifiers: Diabetes mellitus complication detail: with foot ulcer Diabetes mellitus complication status: with skin complications Diabetes mellitus alf insulin use: with alf use Diabetes mellitus type: type 2 Qualified Code(s): E11.621 - Type 2 diabetes mellitus with foot ulcer; L97.509 - Non- pressure chronic ulcer of other part of unspecified foot with unspecified severity; Z79.4 - terminologist (current) use of insulin
[2024-02-07] MEDS ORDERED: D50W ABBOJECT SYR ONE (03:17)
[2024-02-07] MEDS: D50W ABBOJECT SYR IV ONE (03:53)
[2024-02-07 06:20] LABS: BASOPHILS # (AUTO) 0.1 X10^3/uL (0.0-0.1); BASOPHILS % (AUTO) 1.3 % (0.2-1.0); EOSINOPHILS # (AUTO) 0.2 x10^3/uL (0.0-0.2); EOSINOPHILS % (AUTO) 5.4 % (0.9-2.9); HEMATOCRIT 40.2 % (42.0-54.0); HEMOGLOBIN 13.5 g/dL (13.5-18.0); LYMPHOCYTES % (AUTO) 23.4 % (21.0-51.0); MEAN CORPUSCULAR HEMOGLOBIN 30.7 pg (27.0-34.0); MEAN CORPUSCULAR HGB CONC 33.7 g/dL (33.0-35.0); MEAN CORPUSCULAR VOLUME 91.1 fL (80.0-100.0); MONOCYTES # (AUTO) 0.4 x10^3/uL (0.3-0.8); MONOCYTES % (AUTO) 8.5 % (0.0-13.0); NEUTROPHILS # (AUTO) 2.7 x10^3/uL (2.2-4.8); NEUTROPHILS % (AUTO) 61.4 % (42.0-75.0); PLATELET COUNT 238 X10^3/uL (150.0-450.0); RED BLOOD COUNT 4.41 X10^6/uL (4.7-6.0); RED CELL DISTRIBUTION WIDTH 12.8 % (11.6-16.5); WHITE BLOOD COUNT 4.3 X10^3/uL (3.6-10.0)
[2024-02-07 06:34] LABS: ALANINE AMINOTRANSFERASE 28 Units/L (12-78); ALBUMIN 2.9 g/dL (3.4-5.0); ALKALINE PHOSPHATASE 126 Units/L (46-116); ASPARTATE AMINO TRANSFERASE 17 Units/L (15-37); BLOOD UREA NITROGEN 11 mg/dL (7-18); CALCIUM 8.5 mg/dL (8.5-10.1); CHLORIDE 103 mmol/L (98-107); COR CA(FOR HYPOALB) 9.4 mg/dL (8.5-10.1); COR NA(FOR HYPERGLY) 143 mmol/L (136-145); CREATININE 1.04 mg/dL (0.70-1.30); GLUCOSE 254 mg/dL (65-99); POTASSIUM 4.2 mmol/L (3.5-5.1); SODIUM 139 mmol/L (136-145); TOTAL PROTEIN 6.3 g/dL (6.4-8.2); eGFR NON BLACK RACES > 60 (>60)
[2024-02-07 08:35] VITALS: RESP 18
[2024-02-07] MEDS ORDERED: ZESTRIL TAB 20 MG ONE (08:53)
[2024-02-07 11:23] VITALS: BP 166/94; PULSE 66; TEMP 98.4; O2SAT 97
--- NOTE | 2024-02-08 15:27 | W.DIS.FURT ---
Summary of Discharge Discharge Summary of Date Date of Exam: 02/07/24 Admission Date Date of Admission: 02/03/24 Admission Diagnosis Hospital Course: Mr. 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 Patient was admitted for further management. He was started on hydration and IV antibiotics. Dr. Polanco was consulted for debridement. Patient underwent debridement and wound cultures were collected. MRI was also done which did not show any osteomyelitis. Patient's labs were monitored daily and electrolytes were replaced as needed. Patient's dressing was changed as per surgery. Final wound cultures showed Staph epidermidis. He was stable for discharge home on oral antibiotics. He will follow-up with Dr. Polanco and PCP as scheduled. Vital Signs: Vital Signs (72 hours) 02/04/24 16:00 02/04/24 19:00 02/04/24 20:00 Temperature 98.3 F 97.8 F Pulse Rate [Right] 84 73 Respiratory Rate 20 20 Blood Pressure [Left Arm] Blood Pressure [Right Arm] 180/98 148/63 O2 Sat by Pulse Oximetry 98 98 Oxygen Delivery Method Room Air Room Air Room Air 02/05/24 00:00 02/05/24 04:00 02/05/24 07:22 Temperature 98.1 F 98.6 F 97.0 F L Pulse Rate [Right] 74 75 76 Respiratory Rate 20 20 19 Blood Pressure [Left Arm] Blood Pressure [Right Arm] 115/64 126/68 117/77 O2 Sat by Pulse Oximetry 97 98 96 Oxygen Delivery Method Room Air Room Air Room Air 02/05/24 07:00 02/05/24 12:00 02/05/24 16:00 Temperature 97.4 F L 98.6 F Pulse Rate [Right] 71 74 Respiratory Rate 19 18 Blood Pressure [Left Arm] Blood Pressure [Right Arm] 158/78 127/75 O2 Sat by Pulse Oximetry 98 98 Oxygen Delivery Method Room Air Room Air Room Air 02/05/24 19:00 02/05/24 19:42 02/06/24 00:00 Temperature 98.2 F 98.7 F Pulse Rate [Right] 73 71 Respiratory Rate 21 20 Blood Pressure [Left Arm] Blood Pressure [Right Arm] 153/78 140/73 O2 Sat by Pulse Oximetry 98 97 Oxygen Delivery Method Room Air Room Air Room Air 02/06/24 04:00 02/06/24 04:00 02/06/24 07:00 Temperature 97.8 F 97.8 F Pulse Rate [Right] 64 64 Respiratory Rate 21 21 Blood Pressure [Left Arm] Blood Pressure [Right Arm] 124/71 124/71 O2 Sat by Pulse Oximetry 98 98 Oxygen Delivery Method Room Air Room Air Room Air 02/06/24 08:00 02/06/24 11:38 02/06/24 11:44 Temperature 97.8 F 97.6 F Pulse Rate [Right] 105 H 61 75 Respiratory Rate 18 18 Blood Pressure [Left Arm] 192/97 212/110 Blood Pressure [Right Arm] 167/85 O2 Sat by Pulse Oximetry 98 99 Oxygen Delivery Method Room Air Room Air 02/06/24 11:55 02/06/24 12:05 02/06/24 12:15 Temperature Pulse Rate [Right] 75 82 Respiratory Rate Blood Pressure [Left Arm] 161/81 139/76 143/77 Blood Pressure [Right Arm] O2 Sat by Pulse Oximetry Oxygen Delivery Method 02/06/24 12:25 02/06/24 12:35 02/06/24 12:45 Temperature Pulse Rate [Right] 77 83 86 Respiratory Rate Blood Pressure [Left Arm] 138/74 146/81 143/76 Blood Pressure [Right Arm] O2 Sat by Pulse Oximetry Oxygen Delivery Method 02/06/24 16:00 02/06/24 19:00 02/06/24 20:00 Temperature 97.8 F 97.9 F Pulse Rate [Right] 73 73 Respiratory Rate 18 20 Blood Pressure [Left Arm] 138/76 170/82 Blood Pressure [Right Arm] O2 Sat by Pulse Oximetry 98 95 Oxygen Delivery Method Room Air Room Air Room Air 02/07/24 00:00 02/07/24 04:00 02/07/24 07:00 Temperature 97.6 F 97.8 F Pulse Rate [Right] 64 65 Respiratory Rate 20 20 Blood Pressure [Left Arm] 126/73 137/72 Blood Pressure [Right Arm] O2 Sat by Pulse Oximetry 97 97 Oxygen Delivery Method Room Air Room Air Room Air 02/07/24 08:00 02/07/24 11:22 Temperature 98.0 F 98.4 F Pulse Rate [Right] 82 66 Respiratory Rate 18 18 Blood Pressure [Left Arm] 131/79 166/94 Blood Pressure [Right Arm] O2 Sat by Pulse Oximetry 99 97 Oxygen Delivery Method Room Air Room Air Labs: Laboratory Last Values WBC 4.3 X10^3/uL (3.6-10.0) 02/07/24 05:19 RBC 4.41 X10^6/uL (4.7-6.0) L 02/07/24 05:19 Hgb 13.5 g/dL (13.5-18.0) 02/07/24 05:19 Hct 40.2 % (42.0-54.0) L 02/07/24 05:19 MCV 91.1 fL (80.0-100.0) 02/07/24 05:19 MCH 30.7 pg (27.0-34.0) 02/07/24 05:19 MCHC 33.7 g/dL (33.0-35.0) 02/07/24 05:19 RDW 12.8 % (11.6-16.5) 02/07/24 05:19 Plt Count 238 X10^3/uL (150.0-450.0) 02/07/24 05:19 MPV 7.0 fL (7.4-11.0) L 02/07/24 05:19 Neut % (Auto) 61.4 % (42.0-75.0) 02/07/24 05:19 Lymph % (Auto) 23.4 % (21.0-51.0) 02/07/24 05:19 [place] % (Auto) 8.5 % (0.0-13.0) 02/07/24 05:19 Eos % (Auto) 5.4 % (0.9-2.9) H 02/07/24 05:19 Baso % (Auto) 1.3 % (0.2-1.0) H 02/07/24 05:19 Neut # (Auto) 2.7 x10^3/uL (2.2-4.8) 02/07/24 05:19 Lymph # (Auto) 1.0 X10^3/uL (1.3-2.9) L 02/07/24 05:19 [place] # (Auto) 0.4 x10^3/uL (0.3-0.8) 02/07/24 05:19 Eos # (Auto) 0.2 x10^3/uL (0.0-0.2) 02/07/24 05:19 Baso # (Auto) 0.1 X10^3/uL (0.0-0.1) 02/07/24 05:19 Absolute Nucleated RBC 0.1 /100WBC 02/07/24 05:19 Sodium 139 mmol/L (136-145) 02/07/24 05:19 Corrected Sodium 143 mmol/L (136-145) 02/07/24 05:19 Potassium 4.2 mmol/L (3.5-5.1) 02/07/24 05:19 Chloride 103 mmol/L (98-107) 02/07/24 05:19 Carbon Dioxide 30.0 mmol/L (21-32) 02/07/24 05:19 BUN 11 mg/dL (7-18) 02/07/24 05:19 Creatinine 1.04 mg/dL (0.70-1.30) 02/07/24 05:19 Est GFR (MDRD) Af Amer > 60 (>60) 02/07/24 05:19 Est GFR (MDRD) Non-Af > 60 (>60) 02/07/24 05:19 Glucose 254 mg/dL (65-99) H 02/07/24 05:19 POC Glucose (mg/dL) 211 mg/dL (65-99) H 02/07/24 10:43 Calcium 8.5 mg/dL (8.5-10.1) 02/07/24 05:19 Corrected Calcium 9.4 mg/dL (8.5-10.1) 02/07/24 05:19 Total Bilirubin 0.30 mg/dL (0.2-1.0) 02/07/24 05:19 AST 17 Units/L (15-37) 02/07/24 05:19 ALT 28 Units/L (12-78) 02/07/24 05:19 Alkaline Phosphatase 126 Units/L (46-116) H 02/07/24 05:19 Total Protein 6.3 g/dL (6.4-8.2) L 02/07/24 05:19 Albumin 2.9 g/dL (3.4-5.0) L 02/07/24 05:19 Globulin 3.4 g/dL (2.5-4.5) 02/07/24 05:19 Albumin/Globulin Ratio 0.9 Ratio (1.1-2.1) L 02/07/24 05:19 Specimen Type Clean catch urine 02/03/24 22:34 Urine Color Pale yellow (YELLOW) 02/03/24 22:34 Urine Appearance Clear (CLEAR) 02/03/24 22:34 Urine pH 7.0 (5.0 - 8.0) 02/03/24 22:34 Ur Specific [place] 1.010 (1.000-1.030) 02/03/24 22:34 Urine Protein Negative (NEGATIVE) 02/03/24 22:34 Urine Glucose (UA) Negative (NEGATIVE) 02/03/24 22:34 Urine Ketones Negative (NEGATIVE) 02/03/24 22:34 Urine Blood Negative (NEGATIVE) 02/03/24 22:34 Urine Nitrite Negative (NEGATIVE) 02/03/24 22:34 Urine Bilirubin Negative (NEGATIVE) 02/03/24 22:34 Urine Urobilinogen Normal (NORMAL) 02/03/24 22:34 Ur Leukocyte Esterase Negative (NEGATIVE) 02/03/24 22:34 Reason For Visit: CELLULITIS LT FOOT, BLISTER, INFECTED FOOT JOINT Discharge Diagnosis All Active Problems (Updated 02/05/24 @ 09:15 by Sanjana Patrick) Status post laparoscopic cholecystectomy (Acute) Calculus of gallbladder without cholecystitis with obstruction (Acute) Diabetic foot ulcer (Acute) Diabetes (Acute) Charcot foot due to diabetes mellitus (Acute) HTN (hypertension) (Chronic) Dyslipidemia (Chronic) Hypothyroidism (Chronic) Tracheostomy in place (Chronic) Cellulitis (Acute) Diabetic foot ulcer (Acute) Fever in adult (Acute) Diabetic ulcer of left foot (Acute) Plan of Treatment: Continue with present treatment and follow up plan. Pt is to keep follow up appointment as instructed and take medications as ordered. Discharge Medications Discharge Medications: vancomycin Adverse Reaction (Verified 05/04/23 08:43) CONTINUE taking the following medications aspirin 325 mg tablet 325 mg PO DAILY 02/03/24 [History] New Prescriptions levofloxacin 500 mg tablet 500 mg PO QDAY 10 days #10 tabs 02/07/24 [Rx] Discharge Disposition Discharge Disposition: To home Discharge Condition: Stable Discharge Plan Discharge Plan Hospital Course: Mr. 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 Patient was admitted for further management. He was started on hydration and IV antibiotics. Dr. Polanco was consulted for debridement. Patient underwent debridement and wound cultures were collected. MRI was also done which did not show any osteomyelitis. Patient's labs were monitored daily and electrolytes were replaced as needed. Patient's dressing was changed as per surgery. Final wound cultures showed Staph epidermidis. He was stable for discharge home on oral antibiotics. He will follow-up with Dr. Polanco and PCP as scheduled. Patient Disposition: 01 HOME, SELF-CARE Condition: Stable Health Concerns: Post Hospitalization: new medications and changes needed to prevent readmission or further decline. Pt educated and given instructions on all concerns. Care Plan Goals: Problem: Infection Goal: Temperature within normal limits. Resolved infection. Instructions: Follow provided instructions. Follow up with primary physician as directed. Contact primary care physician or report to the closest Emergency Room if condition worsens. Plan of Treatment: Continue with present treatment and follow up plan. Pt is to keep follow up appointment as instructed and take medications as ordered. Prescriptions: New levofloxacin 500 mg Tablet 500 mg PO QDAY 10 Days Qty: 10 0RF Continued aspirin 325 mg Tablet 325 mg PO DAILY atorvastatin 10 mg tablet 1 tab PO QPM levothyroxine 125 mcg tablet 1 tab PO QDAY insulin aspart U-100 [Novolog FlexPen U-100 Insulin] 100 unit/mL (3 mL) insulin pen See Rx Instructions .ROUTE .COMPLEX Rx Instructions: Inject three times daily per sliding scale, max 45 units per day. insulin glargine [Lantus Solostar U-100 Insulin] 100 unit/mL (3 mL) insulin pen 14 unit SUBCUT DAILY Orders to Discharge Patient Discharge Orders: Discharge (Routine); Ordered 02/07/24 Ordered By: Sanjana Patrick Follow ups/Referrals Follow ups/Referrals: XIANG PINEDA [Primary Care Provider] - (Follow up as needed.) HELGA CORONA [STAFF PHYSICIAN] - 02/15/24 10:20 am Instructions Instructions: Diabetes Mellitus and Foot Care, Cellulitis, Adult, [id number] Activity Restrictions/Additional Instructions: Daily dressing change clean with soap and water in the shower. Pat dry cover with 4x4 and wrap with gauze. Contact Dr. Corona with any concerns. Stand Alone Forms: Post Hospital Follow Up Care
== END 2024-02-07 13:55 | disposition home or self-care (01) ==
LOC: ER 20:58 → MED/SURG 20:58
PROVIDERS: ADMIT Obstetrics & Gynecology Obstetrics; ATTEND Internal Medicine

== ENCOUNTER 2024-04-29 14:14 | Inpatient (IN) ==
--- NOTE | 2024-04-29 14:42 | DR.EXTPAIN ---
HPI Time seen Time Seen by Provider: 04/29/24 14:41 PCP Primary Care Physician: Jackie Spencer WHOLESALER Complaint/Symptoms Chief Complaint Doctor Comments: Increase swelling and pain to left foot and leg. Chief Complaint:: Patient states that Dr. POLANCO has been working on the patient's left foot due to a diabetic ulcer. He states that he saw Dr. Polanco in his office and he said that everything looked good. However Monday it started swelling and became painful. He states that the swelling has gotten much worse and that the pain goes all the way up his leg to his hip. He also states that he has been running a fever since yesterday. He called Dr. Polanco's office and he was instructed to come to the ER. COVID-19 Coronavirus risk:travel/contact w/high risk person: No Has patient experienced Coronavirus symptoms: No Nurses notes reviewed Nurses Notes Review: Yes Source History Provided: Patient Mode of arrival Mode of Arrival: Ambulatory Timing Onset of Chief Complaint: 04/26/24 Associated signs and symptoms Associated Signs and Symptoms: Pain, Swelling and Other (Fever) PMH PMH Past Medical History: Yes Past Medical History: Diabetes, Dyslipidemia and Hypertension Past Medical History Comment: Cancer vocal cords Past Surgical History: Yes Surgical History: Cholecystectomy and Other Family History History of Family Medical Conditions: Yes Family Medical History: Diabetes Mellitus, Cancer and Hypertension Social History Does patient currently use any type of tobacco product: No Have you used tobacco products in the last 12 months: No Type of Tobacco Use: None Does any household member use tobacco: No Alcohol Use: DAILY Do you use any recreational Drugs:: No Lives With: Family Lives Where: Home Travel Risk Coronavirus risk:travel/contact w/high risk person: No Has patient experienced Coronavirus symptoms: No Infectious screening In the last 2 months have you had wt loss of >10#?: NO Have you had fever, night sweats or hemotysis?: No Have you traveled outside the country in the last 6 months?: No Isolation: Standard ROS Review of Systems Constitutional: See HPI, Chills and Fever Eyes: No Symptoms Reported ENTM: No Symptoms Reported Respiratoy: No Symptoms Reported Cardiovascular: No Symptoms Reported Gastrointestinal/Abdominal: No Symptoms Reported Genitourinary: No Symptoms Reported Neurological: No Symptoms Reported Musculoskeletal: No Symptoms Reported, See HPI, Joint Pain, Joint Swelling, Muscle Stiffness, Neck Pain, Left, Hip and Foot Integumentary: See HPI and Lesions Hematologic/Lymphatic: No Symptoms Reported Endocrine: No Symptoms Reported Psychiatric: No Symptoms Reported All Other Systems: Reviewed and Negative PE Vital Signs Vitals: Vital Signs Temperature 99.2 F Pulse Rate 98 Respiratory Rate 18 Blood Pressure 129/75 O2 Sat by Pulse Oximetry 95 General Limitations: No Limitations General Appearance: Alert and In No Apparent Distress Head Head Exam: Normal Inspection Eyes Eye exam: Normal Appearance ENT ENT Exam: Normal Exam Neck Neck Exam: Normal Inspection Chest Chest Inspection: Normal Inspection Respiratory Respiratory Exam: Normal Lung Sounds Bilat Cardiovascular Cardiovascular Exam: Regular Rate and Normal Rhythm Abdominal Exam Abdominal Exam: Normal Inspection, Normal Bowel Sounds and Soft Extremities Extremities Exam: Normal Inspection, Tenderness (Left), Edema and Joint Swelling Lower Extremities Hip/Pelvis Exam: Tenderness and Deformity (Left foot abscess) Upper Leg Exam: Tenderness Knee Exam: Tenderness Lower Leg Exam: Tenderness and Swelling Ankle Exam: Tenderness and Swelling Foot/Toe Exam: Tenderness and Swelling Back Back Exam: Normal Inspection Neurological Neurological Exam: Alert, Oriented X3 and CN II-XII Intact Psychiatric Psychiatric Exam: Normal Affect and Normal Mood Skin Skin Exam: Warm, Dry, Intact and Normal Color MDM Differential Diagnosis Differential Diagnosis: Other (Cellulitis with infected Left foot ulcer) COURSE Treatment Treatment: See Treatment while in ED Reevaluation 1st: Unchanged Consultation Call Returned: 18:45 Consultation Comments: Dr. Polanco notified accepts patient for admission Education/Counseling Education/Counseling: Patient and Counseling Educated On: Treatment and Diagnosis ROR Labs Reviewed Laboratory Results Reviewed?: Yes 05/03/24 05:38 05/03/24 05:38 Laboratory: 04/29/24 15:24 Blood Blood Culture - Final 04/29/24 15:15 Blood Blood Culture - Final 04/29/24 15:00 Foot - Left Wound Gram Stain - Final 04/29/24 15:00 Foot - Left Wound Culture - Final Methicillin Resis Staph Aureus WBC 12.1 X10^3/uL (3.6-10.0) H 04/29/24 15:15 RBC 4.10 X10^6/uL (4.7-6.0) L 04/29/24 15:15 Hgb 12.5 g/dL (13.5-18.0) L 04/29/24 15:15 Hct 37.0 % (42.0-54.0) L 04/29/24 15:15 MCV 90.1 fL (80.0-100.0) 04/29/24 15:15 MCH 30.4 pg (27.0-34.0) 04/29/24 15:15 MCHC 33.8 g/dL (33.0-35.0) 04/29/24 15:15 RDW 12.2 % (11.6-16.5) 04/29/24 15:15 Plt Count 276 X10^3/uL (150.0-450.0) 04/29/24 15:15 MPV 6.4 fL (7.4-11.0) L 04/29/24 15:15 Neut % (Auto) 87.4 % (42.0-75.0) H 04/29/24 15:15 Lymph % (Auto) 5.1 % (21.0-51.0) L 04/29/24 15:15 [place] % (Auto) 6.8 % (0.0-13.0) 04/29/24 15:15 Eos % (Auto) 0.3 % (0.9-2.9) L 04/29/24 15:15 Baso % (Auto) 0.4 % (0.2-1.0) 04/29/24 15:15 Neut # (Auto) 10.6 x10^3/uL (2.2-4.8) H 04/29/24 15:15 Lymph # (Auto) 0.6 X10^3/uL (1.3-2.9) L 04/29/24 15:15 [place] # (Auto) 0.8 x10^3/uL (0.3-0.8) 04/29/24 15:15 Eos # (Auto) 0.0 x10^3/uL (0.0-0.2) 04/29/24 15:15 Baso # (Auto) 0.0 X10^3/uL (0.0-0.1) 04/29/24 15:15 Absolute Nucleated RBC 0.0 /100WBC 04/29/24 15:15 Sodium 129 mmol/L (136-145) L 04/29/24 15:15 Corrected Sodium 133 mmol/L (136-145) L 04/29/24 15:15 Potassium 4.1 mmol/L (3.5-5.1) 04/29/24 15:15 Chloride 91 mmol/L (98-107) L 04/29/24 15:15 Carbon Dioxide 29.2 mmol/L (21-32) 04/29/24 15:15 BUN 10 mg/dL (7-18) 04/29/24 15:15 Creatinine 1.17 mg/dL (0.70-1.30) 04/29/24 15:15 Est GFR (MDRD) Af Amer > 60 (>60) 04/29/24 15:15 Est GFR (MDRD) Non-Af > 60 (>60) 04/29/24 15:15 Glucose 260 mg/dL (65-99) H 04/29/24 15:15 Lactic Acid 1.3 mmol/L (0.4-2.0) 04/29/24 15:15 Calcium 9.0 mg/dL (8.5-10.1) 04/29/24 15:15 Corrected Calcium 10.0 mg/dL (8.5-10.1) 04/29/24 15:15 Total Bilirubin 1.00 mg/dL (0.2-1.0) 04/29/24 15:15 AST 8 Units/L (15-37) L 04/29/24 15:15 ALT 15 Units/L (12-78) 04/29/24 15:15 Alkaline Phosphatase 168 Units/L (46-116) H 04/29/24 15:15 Total Protein 7.5 g/dL (6.4-8.2) 04/29/24 15:15 Albumin 2.8 g/dL (3.4-5.0) L 04/29/24 15:15 Globulin 4.7 g/dL (2.5-4.5) H 04/29/24 15:15 Albumin/Globulin Ratio 0.6 Ratio (1.1-2.1) L 04/29/24 15:15 Other Results Comments: Discussed results with patient XRAY XRAY Interpreted by: Radiologist and Self X-ray Results: Evidence for Osteomyelitis. US in neg for DVT Opioid Opioid Risk Tool Age (Tylor box if 16-45): No History of Preadolescent Sexual Abuse: No Total: 0 Total Score Risk Category: Low Risk Copyright: Сергей ROWLAND predicting aberrant behaviors Discharge Plan Diagnosis Discharge Problem: Diabetic ulcer of left foot Qualifiers: Diabetic foot ulcer location: unspecified part of foot Diabetes mellitus type: type 2 Non-pressure ulcer stage: unspecified non-pressure ulcer stage Qualified Code(s): E11.621 - Type 2 diabetes mellitus with foot ulcer; L97.529 - Non- pressure chronic ulcer of other part of left foot with unspecified severity Discharge Plan Patient Disposition: 09 ADMITTED INPATIENT Condition: Stable
[2024-04-29] MEDS: NS 1,000 ML IV 1,000 ML IV SCH ×2 (15:10→21:47)
[2024-04-29 15:32] LABS: BASOPHILS % (AUTO) 0.4 % (0.2-1.0); EOSINOPHILS % (AUTO) 0.3 % (0.9-2.9); HEMOGLOBIN 12.5 g/dL (13.5-18.0); LYMPHOCYTES # (AUTO) 0.6 X10^3/uL (1.3-2.9); LYMPHOCYTES % (AUTO) 5.1 % (21.0-51.0); MEAN CORPUSCULAR HEMOGLOBIN 30.4 pg (27.0-34.0); MEAN CORPUSCULAR HGB CONC 33.8 g/dL (33.0-35.0); MEAN CORPUSCULAR VOLUME 90.1 fL (80.0-100.0); MEAN PLATELET VOLUME 6.4 fL (7.4-11.0); MONOCYTES # (AUTO) 0.8 x10^3/uL (0.3-0.8); MONOCYTES % (AUTO) 6.8 % (0.0-13.0); NEUTROPHILS # (AUTO) 10.6 x10^3/uL (2.2-4.8); NEUTROPHILS % (AUTO) 87.4 % (42.0-75.0); PLATELET COUNT 276 X10^3/uL (150.0-450.0); RED CELL DISTRIBUTION WIDTH 12.2 % (11.6-16.5); WHITE BLOOD COUNT 12.1 X10^3/uL (3.6-10.0)
[2024-04-29 15:43] LABS: ALANINE AMINOTRANSFERASE 15 Units/L (12-78); ALBUMIN 2.8 g/dL (3.4-5.0); ALKALINE PHOSPHATASE 168 Units/L (46-116); ASPARTATE AMINO TRANSFERASE 8 Units/L (15-37); BLOOD UREA NITROGEN 10 mg/dL (7-18); CARBON DIOXIDE 29.2 mmol/L (21-32); CHLORIDE 91 mmol/L (98-107); COR NA(FOR HYPERGLY) 133 mmol/L (136-145); CREATININE 1.17 mg/dL (0.70-1.30); GLUCOSE 260 mg/dL (65-99); POTASSIUM 4.1 mmol/L (3.5-5.1); SODIUM 129 mmol/L (136-145); TOTAL PROTEIN 7.5 g/dL (6.4-8.2); eGFR NON BLACK RACES > 60 (>60)
--- NOTE | 2024-04-29 16:53 | VAS ---
EXAM:LOWER EXT VENOUS, UNILATERALHISTORY:Left leg pain from diabetic ulcer on foot; left leg pain from diabetic ulcer UnavailableCOMPARISON:None.TECHNIQUE:Mul tiple fink scale and color flow Doppler images of the deep venous system were obtained of the left lower extremity.FINDINGS:The deep venous system of the left lower extremity were evaluated from the level of the common femoral vein through the popliteal vein. Normal color flow and augmentation can be observed. In addition, normal compression is seen throughout the deep venous system.3.1 cm lymph node noted in the left groin.IMPRESSION:Negative for DVT.THIS IS AN ELECTRONICALLY VERIFIED FINAL REPORT04/29/2024 4:49 PM - Electronically signed by Jarrett Valdovinos MD
[2024-04-29] MEDS ORDERED: NS 250 ML IV 25 ML IV PRN ×2 (20:00→21:28)
[2024-04-29] MEDS ORDERED: XYLOCAINE 2 % (PLAIN) ONE (20:04)
[2024-04-29] MEDS: ZOSYN VIAL 3.375 GRAMS 3.375 G in NS 100 ML IV 100 ML IV ONE (20:11)
[2024-04-29] MEDS: BENADRYL INJ 50 MG VIAL IVP ONE (20:44)
[2024-04-29] MEDS ORDERED: ZOFRAN TAB 4 MG PO PRN (21:28)
[2024-04-29 21:45] VITALS: BMI 22.1
[2024-04-29] MEDS: CLEOCIN 300 MG IV PREMIX 300 MG/50 ML BAG IV SCH (21:53)
[2024-04-29] MEDS: LEVAQUIN PREMIX IV 750 MG 750 MG/150 ML BAG IV SCH (21:53)
[2024-04-29] MEDS ORDERED: CLEOCIN VIAL 600 MG 300 MG in D5W 50 ML IV 50 ML IV SCH (22:00)
--- NOTE | 2024-04-29 22:51 | RAD ---
EXAM:FOOT, LEFTHISTORY:INFECTED LEFT FOOT, SWELLING;COMPARISON:None.TECHNIQUE:AP, oblique and lateral views were acquiredFINDINGS:Great toe has been resected. There are extension deformities along the MTP joints. No erosive lesion is seen to indicate osteomyelitis. There is some mild degeneration of the midfoot.IMPRESSION:Evidence for osteomyelitis.THIS IS AN ELECTRONICALLY VERIFIED FINAL REPORT04/29/2024 10:48 PM - Electronically signed by Reese Bedolla MD
[2024-04-30] MEDS: HIBICLENS WASH EXT ONE ×2 (01:46→21:08)
[2024-04-30 06:35] LABS: BASOPHILS # (AUTO) 0.2 X10^3/uL (0.0-0.1); BASOPHILS % (AUTO) 1.7 % (0.2-1.0); EOSINOPHILS # (AUTO) 0.2 x10^3/uL (0.0-0.2); EOSINOPHILS % (AUTO) 1.6 % (0.9-2.9); HEMATOCRIT 37.3 % (42.0-54.0); HEMOGLOBIN 12.5 g/dL (13.5-18.0); LYMPHOCYTES # (AUTO) 0.5 X10^3/uL (1.3-2.9); LYMPHOCYTES % (AUTO) 5.1 % (21.0-51.0); MEAN CORPUSCULAR HEMOGLOBIN 30.6 pg (27.0-34.0); MEAN CORPUSCULAR HGB CONC 33.5 g/dL (33.0-35.0); MEAN CORPUSCULAR VOLUME 91.5 fL (80.0-100.0); MEAN PLATELET VOLUME 6.7 fL (7.4-11.0); MONOCYTES # (AUTO) 0.5 x10^3/uL (0.3-0.8); MONOCYTES % (AUTO) 5.7 % (0.0-13.0); NEUTROPHILS # (AUTO) 8.2 x10^3/uL (2.2-4.8); NEUTROPHILS % (AUTO) 85.9 % (42.0-75.0); PLATELET COUNT 301 X10^3/uL (150.0-450.0); RED BLOOD COUNT 4.08 X10^6/uL (4.7-6.0); RED CELL DISTRIBUTION WIDTH 12.2 % (11.6-16.5); WHITE BLOOD COUNT 9.5 X10^3/uL (3.6-10.0)
[2024-04-30 06:48] LABS: ALANINE AMINOTRANSFERASE 14 Units/L (12-78); ALBUMIN 2.6 g/dL (3.4-5.0); ALKALINE PHOSPHATASE 168 Units/L (46-116); ASPARTATE AMINO TRANSFERASE 10 Units/L (15-37); BLOOD UREA NITROGEN 13 mg/dL (7-18); CALCIUM 9.1 mg/dL (8.5-10.1); CARBON DIOXIDE 25.3 mmol/L (21-32); CHLORIDE 94 mmol/L (98-107); COR CA(FOR HYPOALB) 10.2 mg/dL (8.5-10.1); COR NA(FOR HYPERGLY) 138 mmol/L (136-145); CREATININE 1.14 mg/dL (0.70-1.30); GLUCOSE 388 mg/dL (65-99); POTASSIUM 4.8 mmol/L (3.5-5.1); SODIUM 131 mmol/L (136-145); TOTAL PROTEIN 7.4 g/dL (6.4-8.2); eGFR NON BLACK RACES > 60 (>60)
[2024-04-30 07:07] LABS: BAND NEUTROPHILS % 1 % (0-10); PLATELET MORPHOLOGY COMMENT NORMAL (NORMAL)
[2024-04-30] MEDS: BENADRYL INJ 50 MG VIAL ONE (07:13)
[2024-04-30] MEDS ORDERED: NovoLIN R (or HumuLIN R) SC PRN (08:06)
[2024-04-30 09:16] LABS: HEMOGLOBIN A1C 8.4 %
[2024-04-30] MEDS: LANTUS SC SCH (10:41)
--- NOTE | 2024-04-30 12:55 | CT ---
EXAMINATION: LOWER EXT WITH CON HISTORY: INFECTED DIABETIC LEFT FOOTCELLULITISLEFT FOOT ULCER; . COMPARISON STUDY: CT left foot 04/03/2024 TECHNIQUE: Spiral CT scan of the left foot was performed with IV contrast. Sagittal and coronal reformatted tammy ges were obtained. Volume rendering was performed on a workstation. FINDINGS: Mineralization is normal. Osteoarthritic changes are seen along the 2nd through 5th MTP joints and along the PIP and D IP joint s of the toes. There is amputation of the great toe. There is no fracture or dislocation. Erosions along the head of the 2nd metatarsal are noted. This appears sclerotic and could represent chronic osteomyelitis. No other areas of lytic bony destruction, periosteal reaction or subcutaneous emphysema. There is no CT evidence for organized abscess. Diffuse superficial and deep cellulitis is noted. Ulceration along the lateral plantar forefoot. There are no soft tissue masses. No osteolytic or osteoblastic lesions. No radiopaque foreign body. No significant joint effusion is noted. IMPRESSION: Diffuse cellulitis. No CT evidence for organized abscess, subcutaneous emphysema or acute bony destr uction. Chronic osteomyelitis along the 2nd metatarsal is unchanged. Remainder of findings on changed as described previously The above CT scan was done with automated exposure and the mA and kvP was adjusted to obtain quality images according to patient size. THIS IS AN ELECTRONICALLY VERIFIED FINAL REPORT 04/30/2024 12:51 PM - Electronically signed by Vince Huddleston MD
[2024-04-30] MEDS: HumaLOG SC PRN (13:16)
[2024-04-30] MEDS: MORPHINE SULFATE INJ 4 MG IVP PRN (18:57)
[2024-04-30] MEDS ORDERED: LANTUS SC SCH (21:00)
[2024-04-30] MEDS: SNACK - Diabetic Appropriate PO SCH ×2 (21:01)
[2024-05-01 07:13] LABS: BASOPHILS % (AUTO) 0.9 % (0.2-1.0); EOSINOPHILS # (AUTO) 0.2 x10^3/uL (0.0-0.2); EOSINOPHILS % (AUTO) 3.9 % (0.9-2.9); HEMATOCRIT 32.2 % (42.0-54.0); LYMPHOCYTES # (AUTO) 0.6 X10^3/uL (1.3-2.9); LYMPHOCYTES % (AUTO) 10.6 % (21.0-51.0); MEAN CORPUSCULAR HEMOGLOBIN 30.8 pg (27.0-34.0); MEAN CORPUSCULAR HGB CONC 34.1 g/dL (33.0-35.0); MEAN CORPUSCULAR VOLUME 90.4 fL (80.0-100.0); MEAN PLATELET VOLUME 6.1 fL (7.4-11.0); MONOCYTES # (AUTO) 0.5 x10^3/uL (0.3-0.8); MONOCYTES % (AUTO) 9.1 % (0.0-13.0); NEUTROPHILS # (AUTO) 4.2 x10^3/uL (2.2-4.8); NEUTROPHILS % (AUTO) 75.5 % (42.0-75.0); PLATELET COUNT 311 X10^3/uL (150.0-450.0); RED BLOOD COUNT 3.56 X10^6/uL (4.7-6.0); RED CELL DISTRIBUTION WIDTH 11.9 % (11.6-16.5); WHITE BLOOD COUNT 5.6 X10^3/uL (3.6-10.0)
[2024-05-01 07:20] LABS: ERYTHROCYTE SEDIMENTATION RATE 91 MM/HOUR (0-15)
[2024-05-01 07:29] LABS: ALANINE AMINOTRANSFERASE 11 Units/L (12-78); ALBUMIN 2.2 g/dL (3.4-5.0); ALKALINE PHOSPHATASE 127 Units/L (46-116); ASPARTATE AMINO TRANSFERASE 8 Units/L (15-37); BLOOD UREA NITROGEN 10 mg/dL (7-18); CALCIUM 8.9 mg/dL (8.5-10.1); CARBON DIOXIDE 31.2 mmol/L (21-32); CHLORIDE 100 mmol/L (98-107); COR CA(FOR HYPOALB) 10.3 mg/dL (8.5-10.1); COR NA(FOR HYPERGLY) 138 mmol/L (136-145); CREATININE 0.93 mg/dL (0.70-1.30); GLUCOSE 199 mg/dL (65-99); POTASSIUM 4.1 mmol/L (3.5-5.1); SODIUM 136 mmol/L (136-145); TOTAL PROTEIN 6.5 g/dL (6.4-8.2); eGFR NON BLACK RACES > 60 (>60)
--- NOTE | 2024-05-01 08:07 | DR.CONSULT ---
CONSULT Consultation for Day of: Date: 04/30/24 Chief Complaint Chief Complaint: Medical management of multiple medical problems. Allergies Allergies Allergy/AdvReac Type Severity Reaction Status Date / Time lisinopril Allergy Verified 04/29/24 14:18 vancomycin AdvReac Verified 04/25/24 09:46 History of Present Illness History of Present Illness: This is a pleasant 54-year-old white male who was admitted through the [facility] emergency department to a general surgeon, Dr. Corona. He was admitted for an infected ulcer on his left diabetic foot. The patient has bilateral Charcot feet. He also has a history of hypothyroidism, insulin-dependent diabetes mellitus type 2, dyslipidemia, bilateral Charcot feet, a history of laryngeal cancer status post tracheostomy, and primary hypertension. I have been consulted for the management of his medical problems. I will let the patient resume his Lantus Solostar insulin, private sliding scale, and Lantus. He has a long history of using this and is comfortable giving himself his insulin. We will follow his blood pressure daily and adjust his antihypertensives as needed. We will follow with you. Thank you for the consultation. Past Medical History Past Medical History: Diabetes, Dyslipidemia and Hypertension Additional Medical History: Bilateral Charcot feet, history of laryngeal cancer status post resection and tracheostomy Past Surgical History Surgical History: Cholecystectomy Family History Family Medical History: Diabetes Mellitus, Cancer and Hypertension Social History Does patient currently use any type of tobacco product: Yes Have you used tobacco products in the last 12 months: No Type of Tobacco Use: chewing Does any household member use tobacco: No Alcohol Use: DAILY Drug Use: None Medications Home Medications: lisinopril Allergy (Verified 04/29/24 14:18) vancomycin Adverse Reaction (Verified 04/25/24 09:46) CONTINUE taking the following medications lisinopril 5 mg tablet 5 mg PO DAILY 04/29/24 [History] Review of Systems Constitutional: No Symptoms Reported Eyes: No Symptoms Reported ENT: No Symptoms Reported Respiratory: No Symptoms Reported Cardiovascular: No Symptoms Reported Gastrointestinal: No Symptoms Reported Genitourinary: No Symptoms Reported Musculoskeletal: Foot Pain Skin: Wound; denies Rash, Jaundice or Ecchymosis Neurological: No Symptoms Reported Physical Exam Vital Signs: Vital Signs Temperature 98.2 F Pulse Rate [Right Brachial] 83 Respiratory Rate 20 Blood Pressure [Right Arm] 121/60 O2 Sat by Pulse Oximetry 97 Oriented: Normal, Time, Person and Place Eyes: Normal Ear: Normal Nose: Normal Throat: Normal Respiratory: Clear Throughout Cardiovascular: Normal Auscultation: Bowel Sounds: Normal Palpation: Normal Tenderness: Normal Skin: Tender, Hot and Wound Musculoskeletal: Left and Foot (Pain and ulcer. ) Psychiatric: Normal Mood Description: Calm Affect: Normal Speech Pattern: Trach(not ventilated) Plan (1) Diabetic foot ulcer: Status: Acute Plan: I will allow the patient to use his old insulin sliding scale with his NovoLog FlexPen and he may continue he is on Lantus Solostar. We will be checking his blood sugars and if we need to have him adjust anything we will let him know. (2) Charcot foot due to diabetes mellitus: Status: Acute Plan: Treatment per general surgery. (3) Insulin dependent type 2 diabetes mellitus: Status: Acute Plan: Treatment per general surgery. (4) HTN (hypertension): Status: Chronic Qualifiers: Hypertension type: primary hypertension Qualified Code(s): I10 - Essential (primary) hypertension Plan: Monitor daily blood pressures. We will continue his lisinopril 5 mg p.o. daily at this time. We will adjust if necessary. (5) Dyslipidemia: Status: Chronic Plan: We will continue his atorvastatin 10 mg nightly. (6) Hypothyroidism: Status: Chronic Qualifiers: Hypothyroidism type: acquired Qualified Code(s): E03.9 - Hypothyroidism, unspecified Plan: We will continue the patient's levothyroxine 125 mcg daily. I will go back and look to see when his last TSH level was, and if it has been longer than 3 months, I will check another one. (7) Tracheostomy in place: Status: Chronic
[2024-05-01] MEDS ORDERED: CONSULT PHARMACY - ANTIBIOTIC XX SCH (11:07)
[2024-05-01] MEDS: PERCOCET TAB 5/325 MG PO PRN (11:51)
[2024-05-01] MEDS: ZYVOX 600MG IV 600 MG/300 ML BAG IV SCH (11:52)
[2024-05-01] MEDS: POLYMYXIN B SULFATE ONE (17:41)
[2024-05-01] MEDS: BETADINE SOLN ONE (17:41)
[2024-05-01] MEDS: XYLOCAINE 1 % (PLAIN) ONE (17:42)
[2024-05-01] MEDS: NS 100 ML IV 100 ML ONE (17:42)
[2024-05-01] MEDS: NS 1,000 ML IV 1,000 ML ONE (17:42)
[2024-05-01] MEDS: ANCEF VIAL 1 GRAM ONE (17:42)
[2024-05-01] MEDS: KETAMINE 50 MG/5 ML-NACL SYRNG ONE (17:43)
[2024-05-01] MEDS: FENTANYL VIAL INJ 100 mcg ONE (17:43)
[2024-05-01] MEDS: VERSED ONE (17:44)
[2024-05-01] MEDS: DIPRIVAN VIAL 20 ML ONE (17:45)
[2024-05-02 07:04] LABS: BASOPHILS # (AUTO) 0.1 X10^3/uL (0.0-0.1); EOSINOPHILS # (AUTO) 0.3 x10^3/uL (0.0-0.2); EOSINOPHILS % (AUTO) 6.1 % (0.9-2.9); HEMATOCRIT 34.6 % (42.0-54.0); HEMOGLOBIN 11.7 g/dL (13.5-18.0); LYMPHOCYTES # (AUTO) 0.6 X10^3/uL (1.3-2.9); LYMPHOCYTES % (AUTO) 11.7 % (21.0-51.0); MEAN CORPUSCULAR HEMOGLOBIN 30.5 pg (27.0-34.0); MEAN CORPUSCULAR HGB CONC 33.8 g/dL (33.0-35.0); MEAN CORPUSCULAR VOLUME 90.2 fL (80.0-100.0); MEAN PLATELET VOLUME 6.4 fL (7.4-11.0); MONOCYTES # (AUTO) 0.4 x10^3/uL (0.3-0.8); MONOCYTES % (AUTO) 8.3 % (0.0-13.0); NEUTROPHILS % (AUTO) 72.9 % (42.0-75.0); PLATELET COUNT 320 X10^3/uL (150.0-450.0); RED BLOOD COUNT 3.84 X10^6/uL (4.7-6.0); RED CELL DISTRIBUTION WIDTH 11.8 % (11.6-16.5); WHITE BLOOD COUNT 5.4 X10^3/uL (3.6-10.0)
[2024-05-02 07:05] LABS: ERYTHROCYTE SEDIMENTATION RATE 73 MM/HOUR (0-15)
[2024-05-02 07:19] LABS: ALANINE AMINOTRANSFERASE 10 Units/L (12-78); ALBUMIN 2.2 g/dL (3.4-5.0); ALKALINE PHOSPHATASE 130 Units/L (46-116); ASPARTATE AMINO TRANSFERASE 7 Units/L (15-37); BLOOD UREA NITROGEN 5 mg/dL (7-18); CALCIUM 8.8 mg/dL (8.5-10.1); CARBON DIOXIDE 29.1 mmol/L (21-32); CHLORIDE 97 mmol/L (98-107); COR CA(FOR HYPOALB) 10.2 mg/dL (8.5-10.1); COR NA(FOR HYPERGLY) 139 mmol/L (136-145); GLUCOSE 304 mg/dL (65-99); POTASSIUM 4.2 mmol/L (3.5-5.1); SODIUM 134 mmol/L (136-145); TOTAL PROTEIN 6.5 g/dL (6.4-8.2); eGFR NON BLACK RACES > 60 (>60)
--- NOTE | 2024-05-02 07:59 | PCM.PROG ---
Progress Note Progress Note for Day of Date of Exam: 05/01/24 Subjective Subjective: The patient reports she is doing well this morning. He has been using his Lantus and regular insulin sliding scale and is doing well. He will be going for surgery later today. I will follow up with him afterward to recheck his routine labs tomorrow morning. He has had no acute problems since last night and currently has no new complaints this morning. Past Medical Family Social History Allergies: Allergies lisinopril Allergy (Verified 04/29/24 14:18) vancomycin Adverse Reaction (Verified 04/25/24 09:46) Review of Systems ROS: No change since H&P Vital Signs and I&O's Vital Signs: Vital Signs Temperature 98.3 F Pulse Rate [Right Brachial] 83 Respiratory Rate 20 Respiratory Rate 18 Respiratory Rate 18 Blood Pressure [Right Arm] 172/76 O2 Sat by Pulse Oximetry 97 Intake and Output: Intake & Output 04/29/24 04/30/24 05/01/24 05/02/24 11:59 11:59 11:59 11:59 Intake Total 583 / 583 3706 / 3706 4697 / 4697 Output Total 2745 / 2745 Balance 582 / 582 3706 / 3706 1951 / 1951 Physical Exam Oriented: Normal, Time, Person and Place Eyes: Normal Ear: Normal Nose: Normal Throat: Normal Respiratory: Normal Cardiovascular: Normal Auscultation: Bowel Sounds: Normal Palpation: Normal Tenderness: Normal Skin: Tender, Hot and Wound Musculoskeletal: Left and Foot (Pain and ulcer. ) Psychiatric: Normal Mood Description: Calm Affect: Normal Speech Pattern: Clear and Appropriate Laboratory and Diagnostics 05/02/24 05:53 05/02/24 05:53 Labs: 05/01/24 13:52 Foot - Left Wound Gram Stain - Final 04/29/24 15:24 Blood Blood Culture - Preliminary 04/29/24 15:15 Blood Blood Culture - Preliminary 04/29/24 15:00 Foot - Left Wound Gram Stain - Final 04/29/24 15:00 Foot - Left Wound Culture - Final Methicillin Resis Staph Aureus Laboratory WBC 5.4 X10^3/uL (3.6-10.0) 05/02/24 05:53 RBC 3.84 X10^6/uL (4.7-6.0) L 05/02/24 05:53 Hgb 11.7 g/dL (13.5-18.0) L 05/02/24 05:53 Hct 34.6 % (42.0-54.0) L 05/02/24 05:53 MCV 90.2 fL (80.0-100.0) 05/02/24 05:53 MCH 30.5 pg (27.0-34.0) 05/02/24 05:53 MCHC 33.8 g/dL (33.0-35.0) 05/02/24 05:53 RDW 11.8 % (11.6-16.5) 05/02/24 05:53 Plt Count 320 X10^3/uL (150.0-450.0) 05/02/24 05:53 Plt Count Comment Adequate (ADEQUATE) 04/30/24 05:52 MPV 6.4 fL (7.4-11.0) L 05/02/24 05:53 Neut % (Auto) 72.9 % (42.0-75.0) 05/02/24 05:53 Lymph % (Auto) 11.7 % (21.0-51.0) L 05/02/24 05:53 [place] % (Auto) 8.3 % (0.0-13.0) 05/02/24 05:53 Eos % (Auto) 6.1 % (0.9-2.9) H 05/02/24 05:53 Baso % (Auto) 1.0 % (0.2-1.0) 05/02/24 05:53 Neut # (Auto) 4.0 x10^3/uL (2.2-4.8) 05/02/24 05:53 Lymph # (Auto) 0.6 X10^3/uL (1.3-2.9) L 05/02/24 05:53 [place] # (Auto) 0.4 x10^3/uL (0.3-0.8) 05/02/24 05:53 Eos # (Auto) 0.3 x10^3/uL (0.0-0.2) H 05/02/24 05:53 Baso # (Auto) 0.1 X10^3/uL (0.0-0.1) 05/02/24 05:53 Absolute Nucleated RBC 0.2 /100WBC 05/02/24 05:53 Total Counted 100 04/30/24 05:52 Neutrophils % (Manual) 88 % (39-76) H 04/30/24 05:52 Band Neutrophils % 1 % (0-10) 04/30/24 05:52 Lymphocytes % (Manual) 5 % (13-43) L 04/30/24 05:52 Monocytes % (Manual) 6 % (4-9) 04/30/24 05:52 Plt Morphology Comment Normal (NORMAL) 04/30/24 05:52 RBC Morphology Normal (NORMAL) 04/30/24 05:52 ESR 73 MM/HOUR (0-15) H 05/02/24 05:53 Sodium 134 mmol/L (136-145) L 05/02/24 05:53 Corrected Sodium 139 mmol/L (136-145) 05/02/24 05:53 Potassium 4.2 mmol/L (3.5-5.1) 05/02/24 05:53 Chloride 97 mmol/L (98-107) L 05/02/24 05:53 Carbon Dioxide 29.1 mmol/L (21-32) 05/02/24 05:53 BUN 5 mg/dL (7-18) L 05/02/24 05:53 Creatinine 0.90 mg/dL (0.70-1.30) 05/02/24 05:53 Est GFR (MDRD) Af Amer > 60 (>60) 05/02/24 05:53 Est GFR (MDRD) Non-Af > 60 (>60) 05/02/24 05:53 Glucose 304 mg/dL (65-99) H 05/02/24 05:53 POC Glucose (mg/dL) 292 mg/dL (65-99) H 05/02/24 05:16 Hemoglobin A1c 8.4 % 04/30/24 05:52 Lactic Acid 1.3 mmol/L (0.4-2.0) 04/29/24 15:15 Calcium 8.8 mg/dL (8.5-10.1) 05/02/24 05:53 Corrected Calcium 10.2 mg/dL (8.5-10.1) H 05/02/24 05:53 Total Bilirubin 0.60 mg/dL (0.2-1.0) 05/02/24 05:53 AST 7 Units/L (15-37) L 05/02/24 05:53 ALT 10 Units/L (12-78) L 05/02/24 05:53 Alkaline Phosphatase 130 Units/L (46-116) H 05/02/24 05:53 C-Reactive Protein 124.90 mg/L (0-3.0) H 05/02/24 05:53 Total Protein 6.5 g/dL (6.4-8.2) 05/02/24 05:53 Albumin 2.2 g/dL (3.4-5.0) L 05/02/24 05:53 Globulin 4.3 g/dL (2.5-4.5) 05/02/24 05:53 Albumin/Globulin Ratio 0.5 Ratio (1.1-2.1) L 05/02/24 05:53 Plan (1) Diabetic foot ulcer: Status: Acute Plan: Treatment per general surgery. (2) Charcot foot due to diabetes mellitus: Status: Acute Plan: Treatment per general surgery. (3) Insulin dependent type 2 diabetes mellitus: Status: Acute Plan: Patient is currently using his on Lantus and NovoLog sliding scale. (4) HTN (hypertension): Status: Chronic Qualifiers: Hypertension type: primary hypertension Qualified Code(s): I10 - Essential (primary) hypertension Plan: Continue lisinopril 5 mg 1 p.o. daily. Follow up the patient's daily blood pressure. Adjust medications if needed. (5) Dyslipidemia: Status: Chronic Plan: Continue atorvastatin 10 mg p.o. nightly. (6) Hypothyroidism: Status: Chronic Qualifiers: Hypothyroidism type: acquired Qualified Code(s): E03.9 - Hypothyroidism, unspecified Plan: Continue levothyroxine 125 mcg 1 p.o. daily. (7) Tracheostomy in place: Status: Chronic
[2024-05-02] MEDS ORDERED: ZESTRIL TAB 20 MG ONE (09:06)
[2024-05-02] MEDS: ZESTRIL TAB 20 MG PO SCH (09:18)
--- NOTE | 2024-05-02 09:18 | DR.PROGNOT ---
HOSPITAL PROGRESS NOTE Progress Note for Day of: Progress Note Date: 05/02/24 Chief Complaint Chief Complaint: Patient is doing fairly well today he is status post excisional debridement of left foot ulcer drainage of abscess and amputation of the fourth toe. Less pain and less swelling of the left foot, the packing is left in place and the rest of the dressing was changed. Patient is growing MRSA from the left foot abscess. Resistant to clindamycin, White count 3.5, blood sugar 304, normal liver function test, normal BUN/creatinine. Past Medical Family Social History Allergies: Allergies lisinopril Allergy (Verified 04/29/24 14:18) vancomycin Adverse Reaction (Verified 04/25/24 09:46) Review Of Systems ROS: No change since H&P Vital Signs Vital Signs: Vital Signs Temperature 98.3 F Pulse Rate [Right Brachial] 83 Respiratory Rate 20 Respiratory Rate 18 Respiratory Rate 18 Blood Pressure [Right Arm] 172/76 O2 Sat by Pulse Oximetry 97 Physical Exam Oriented: Normal, Time, Person and Place Eyes: Normal Ear: Normal Nose: Normal Throat: Normal Respiratory: Normal Cardiovascular: Normal GI:Auscultation: Normal GI:Palpation: Normal GI: Tenderness: Normal Skin: Other (Dressing was changed, less erythema and less edema of the forefoot.) Musculoskeletal: Left and Foot (Pain and ulcer. ) Psychiatric: Normal Mood Description: Calm Affect: Normal Speech Pattern: Clear and Appropriate Laboratory and Diagnostics 05/02/24 05:53 05/02/24 05:53 Labs: 05/01/24 13:52 Foot - Left Wound Gram Stain - Final 04/29/24 15:24 Blood Blood Culture - Preliminary 04/29/24 15:15 Blood Blood Culture - Preliminary 04/29/24 15:00 Foot - Left Wound Gram Stain - Final 04/29/24 15:00 Foot - Left Wound Culture - Final Methicillin Resis Staph Aureus Laboratory WBC 5.4 X10^3/uL (3.6-10.0) 05/02/24 05:53 RBC 3.84 X10^6/uL (4.7-6.0) L 05/02/24 05:53 Hgb 11.7 g/dL (13.5-18.0) L 05/02/24 05:53 Hct 34.6 % (42.0-54.0) L 05/02/24 05:53 MCV 90.2 fL (80.0-100.0) 05/02/24 05:53 MCH 30.5 pg (27.0-34.0) 05/02/24 05:53 MCHC 33.8 g/dL (33.0-35.0) 05/02/24 05:53 RDW 11.8 % (11.6-16.5) 05/02/24 05:53 Plt Count 320 X10^3/uL (150.0-450.0) 05/02/24 05:53 Plt Count Comment Adequate (ADEQUATE) 04/30/24 05:52 MPV 6.4 fL (7.4-11.0) L 05/02/24 05:53 Neut % (Auto) 72.9 % (42.0-75.0) 05/02/24 05:53 Lymph % (Auto) 11.7 % (21.0-51.0) L 05/02/24 05:53 [place] % (Auto) 8.3 % (0.0-13.0) 05/02/24 05:53 Eos % (Auto) 6.1 % (0.9-2.9) H 05/02/24 05:53 Baso % (Auto) 1.0 % (0.2-1.0) 05/02/24 05:53 Neut # (Auto) 4.0 x10^3/uL (2.2-4.8) 05/02/24 05:53 Lymph # (Auto) 0.6 X10^3/uL (1.3-2.9) L 05/02/24 05:53 [place] # (Auto) 0.4 x10^3/uL (0.3-0.8) 05/02/24 05:53 Eos # (Auto) 0.3 x10^3/uL (0.0-0.2) H 05/02/24 05:53 Baso # (Auto) 0.1 X10^3/uL (0.0-0.1) 05/02/24 05:53 Absolute Nucleated RBC 0.2 /100WBC 05/02/24 05:53 Total Counted 100 04/30/24 05:52 Neutrophils % (Manual) 88 % (39-76) H 04/30/24 05:52 Band Neutrophils % 1 % (0-10) 04/30/24 05:52 Lymphocytes % (Manual) 5 % (13-43) L 04/30/24 05:52 Monocytes % (Manual) 6 % (4-9) 04/30/24 05:52 Plt Morphology Comment Normal (NORMAL) 04/30/24 05:52 RBC Morphology Normal (NORMAL) 04/30/24 05:52 ESR 73 MM/HOUR (0-15) H 05/02/24 05:53 Sodium 134 mmol/L (136-145) L 05/02/24 05:53 Corrected Sodium 139 mmol/L (136-145) 05/02/24 05:53 Potassium 4.2 mmol/L (3.5-5.1) 05/02/24 05:53 Chloride 97 mmol/L (98-107) L 05/02/24 05:53 Carbon Dioxide 29.1 mmol/L (21-32) 05/02/24 05:53 BUN 5 mg/dL (7-18) L 05/02/24 05:53 Creatinine 0.90 mg/dL (0.70-1.30) 05/02/24 05:53 Est GFR (MDRD) Af Amer > 60 (>60) 05/02/24 05:53 Est GFR (MDRD) Non-Af > 60 (>60) 05/02/24 05:53 Glucose 304 mg/dL (65-99) H 05/02/24 05:53 POC Glucose (mg/dL) 292 mg/dL (65-99) H 05/02/24 05:16 Hemoglobin A1c 8.4 % 04/30/24 05:52 Lactic Acid 1.3 mmol/L (0.4-2.0) 04/29/24 15:15 Calcium 8.8 mg/dL (8.5-10.1) 05/02/24 05:53 Corrected Calcium 10.2 mg/dL (8.5-10.1) H 05/02/24 05:53 Total Bilirubin 0.60 mg/dL (0.2-1.0) 05/02/24 05:53 AST 7 Units/L (15-37) L 05/02/24 05:53 ALT 10 Units/L (12-78) L 05/02/24 05:53 Alkaline Phosphatase 130 Units/L (46-116) H 05/02/24 05:53 C-Reactive Protein 124.90 mg/L (0-3.0) H 05/02/24 05:53 Total Protein 6.5 g/dL (6.4-8.2) 05/02/24 05:53 Albumin 2.2 g/dL (3.4-5.0) L 05/02/24 05:53 Globulin 4.3 g/dL (2.5-4.5) 05/02/24 05:53 Albumin/Globulin Ratio 0.5 Ratio (1.1-2.1) L 05/02/24 05:53 Assessment and Plan 1: Abscess left forefoot with gangrenous changes of the fourth toe required amputation. MRSA infection of the left foot. On IV antibiotics 2: Diabetes mellitus with severe diabetic neuropathy. Same diabetes controlled and medical follow-up by Dr. Andre .. Will plan for discharge to be followed in the office in 10 days, meanwhile visiting nurse will be obtained to change the dressing and packing every other day. Patient may walk with the crutches. Planning for discharge in a.m. Problem Patient Problems: Patient Problems Diabetic ulcer of left foot (Acute) E11.621, L97.502
[2024-05-02] MEDS: COZAAR PO SCH (09:28)
[2024-05-02] MEDS: COZAAR PO ONE (16:08)
[2024-05-02] MEDS ORDERED: TORADOL TAB PO PRN (17:20)
[2024-05-02] MEDS: LOPRESSOR INJ 5 MG AMP IVP PRN (17:24)
[2024-05-02] MEDS: LOPRESSOR INJ 5 MG AMP IVP SCH (17:37)
--- NOTE | 2024-05-02 20:06 | PCM.PROG ---
Progress Note Progress Note for Day of Date of Exam: 05/02/24 Subjective Subjective: The patient went to the OR yesterday. He had an amputation of the second metatarsal secondary to osteomyelitis. He is having some pain this morning, he states. We see that his blood pressure has gone up some. When I went to talk to him about increasing his lisinopril, he told me that he normally does not take it. He states that he gets headaches when he takes it. I told him we will switch him over to losartan 25 mg daily, and he is okay with that. This afternoon, we rechecked his blood pressure. He was still elevated, so I had the nurses give him a second dose of losartan 25 mg. The wound culture grew out MRSA so I started him on Zyvox 600 mg IV twice daily. We have been checking daily ESR and CRP's and they are trending down. Past Medical Family Social History Allergies: Allergies lisinopril Allergy (Verified 04/29/24 14:18) vancomycin Adverse Reaction (Verified 04/25/24 09:46) Review of Systems ROS: No change since H&P Vital Signs and I&O's Vital Signs: Vital Signs Temperature 97.7 F Temperature 97.9 F Temperature 98.0 F Pulse Rate [Right Brachial] 78 Pulse Rate [Right Brachial] 88 Pulse Rate [Right Brachial] 84 Respiratory Rate 18 Respiratory Rate 21 Respiratory Rate 21 Respiratory Rate 18 Blood Pressure [Right Arm] 180/100 Blood Pressure [Right Arm] 178/90 Blood Pressure [Right Arm] 187/97 Blood Pressure 190/100 Blood Pressure 190/100 O2 Sat by Pulse Oximetry 96 O2 Sat by Pulse Oximetry 97 O2 Sat by Pulse Oximetry 97 Intake and Output: Intake & Output 04/30/24 05/01/24 05/02/24 05/03/24 11:59 11:59 11:59 11:59 Intake Total 583 / 583 3706 / 3706 4697 / 4697 2215 / 2215 Output Total 2745 / 2745 500 / 500 Balance 582 / 582 3706 / 3706 1951 / 171 Physical Exam Oriented: Normal, Time, Person and Place Eyes: Normal Ear: Normal Nose: Normal Throat: Normal Respiratory: Normal Cardiovascular: Normal Auscultation: Bowel Sounds: Normal Tenderness: Normal Skin: Other (Dressing was changed, less erythema and less edema of the forefoot.) Musculoskeletal: Left and Foot (Pain and ulcer. ) Psychiatric: Normal Mood Description: Calm Affect: Normal Speech Pattern: Clear and Appropriate Laboratory and Diagnostics 05/02/24 05:53 05/02/24 05:53 Labs: 05/01/24 13:52 Foot - Left Wound Gram Stain - Final 05/01/24 13:52 Foot - Left Wound Culture - Preliminary 04/29/24 15:24 Blood Blood Culture - Preliminary 04/29/24 15:15 Blood Blood Culture - Preliminary 04/29/24 15:00 Foot - Left Wound Gram Stain - Final 04/29/24 15:00 Foot - Left Wound Culture - Final Methicillin Resis Staph Aureus Laboratory WBC 5.4 X10^3/uL (3.6-10.0) 05/02/24 05:53 RBC 3.84 X10^6/uL (4.7-6.0) L 05/02/24 05:53 Hgb 11.7 g/dL (13.5-18.0) L 05/02/24 05:53 Hct 34.6 % (42.0-54.0) L 05/02/24 05:53 MCV 90.2 fL (80.0-100.0) 05/02/24 05:53 MCH 30.5 pg (27.0-34.0) 05/02/24 05:53 MCHC 33.8 g/dL (33.0-35.0) 05/02/24 05:53 RDW 11.8 % (11.6-16.5) 05/02/24 05:53 Plt Count 320 X10^3/uL (150.0-450.0) 05/02/24 05:53 Plt Count Comment Adequate (ADEQUATE) 04/30/24 05:52 MPV 6.4 fL (7.4-11.0) L 05/02/24 05:53 Neut % (Auto) 72.9 % (42.0-75.0) 05/02/24 05:53 Lymph % (Auto) 11.7 % (21.0-51.0) L 05/02/24 05:53 [place] % (Auto) 8.3 % (0.0-13.0) 05/02/24 05:53 Eos % (Auto) 6.1 % (0.9-2.9) H 05/02/24 05:53 Baso % (Auto) 1.0 % (0.2-1.0) 05/02/24 05:53 Neut # (Auto) 4.0 x10^3/uL (2.2-4.8) 05/02/24 05:53 Lymph # (Auto) 0.6 X10^3/uL (1.3-2.9) L 05/02/24 05:53 [place] # (Auto) 0.4 x10^3/uL (0.3-0.8) 05/02/24 05:53 Eos # (Auto) 0.3 x10^3/uL (0.0-0.2) H 05/02/24 05:53 Baso # (Auto) 0.1 X10^3/uL (0.0-0.1) 05/02/24 05:53 Absolute Nucleated RBC 0.2 /100WBC 05/02/24 05:53 Total Counted 100 04/30/24 05:52 Neutrophils % (Manual) 88 % (39-76) H 04/30/24 05:52 Band Neutrophils % 1 % (0-10) 04/30/24 05:52 Lymphocytes % (Manual) 5 % (13-43) L 04/30/24 05:52 Monocytes % (Manual) 6 % (4-9) 04/30/24 05:52 Plt Morphology Comment Normal (NORMAL) 04/30/24 05:52 RBC Morphology Normal (NORMAL) 04/30/24 05:52 ESR 73 MM/HOUR (0-15) H 05/02/24 05:53 Sodium 134 mmol/L (136-145) L 05/02/24 05:53 Corrected Sodium 139 mmol/L (136-145) 05/02/24 05:53 Potassium 4.2 mmol/L (3.5-5.1) 05/02/24 05:53 Chloride 97 mmol/L (98-107) L 05/02/24 05:53 Carbon Dioxide 29.1 mmol/L (21-32) 05/02/24 05:53 BUN 5 mg/dL (7-18) L 05/02/24 05:53 Creatinine 0.90 mg/dL (0.70-1.30) 05/02/24 05:53 Est GFR (MDRD) Af Amer > 60 (>60) 05/02/24 05:53 Est GFR (MDRD) Non-Af > 60 (>60) 05/02/24 05:53 Glucose 304 mg/dL (65-99) H 05/02/24 05:53 POC Glucose (mg/dL) 325 mg/dL (65-99) H 05/02/24 16:23 Hemoglobin A1c 8.4 % 04/30/24 05:52 Lactic Acid 1.3 mmol/L (0.4-2.0) 04/29/24 15:15 Calcium 8.8 mg/dL (8.5-10.1) 05/02/24 05:53 Corrected Calcium 10.2 mg/dL (8.5-10.1) H 05/02/24 05:53 Total Bilirubin 0.60 mg/dL (0.2-1.0) 05/02/24 05:53 AST 7 Units/L (15-37) L 05/02/24 05:53 ALT 10 Units/L (12-78) L 05/02/24 05:53 Alkaline Phosphatase 130 Units/L (46-116) H 05/02/24 05:53 C-Reactive Protein 124.90 mg/L (0-3.0) H 05/02/24 05:53 Total Protein 6.5 g/dL (6.4-8.2) 05/02/24 05:53 Albumin 2.2 g/dL (3.4-5.0) L 05/02/24 05:53 Globulin 4.3 g/dL (2.5-4.5) 05/02/24 05:53 Albumin/Globulin Ratio 0.5 Ratio (1.1-2.1) L 05/02/24 05:53 Plan (1) Chronic osteomyelitis of toe of left foot: Status: Acute Plan: Status post amputation of the metatarsal left foot. Cultures positive for MRSA. He is receiving IV Zyvox at this time. Daily inflammatory panels are decreasing. (2) Status post amputation of left foot through metatarsal bone: Status: Acute Plan: Continue IV Zyvox 600 mg IV twice daily. (3) Diabetic foot ulcer: Status: Acute Plan: Treatment per general surgery. (4) Charcot foot due to diabetes mellitus: Status: Acute Plan: Treatment per general surgery. (5) Insulin dependent type 2 diabetes mellitus: Status: Acute Plan: Patient is currently using his on Lantus and NovoLog sliding scale. (6) HTN (hypertension): Status: Chronic Qualifiers: Hypertension type: primary hypertension Qualified Code(s): I10 - Essential (primary) hypertension Plan: Discontinue lisinopril. Start losartan 50 mg daily since 25 mg daily this morning did not control his blood pressure. We will reevaluate tomorrow morning and if he is still elevated we will readjust his blood pressure. I have also added IV Lopressor at this time since the still elevated after office hours when I made afternoon rounds. (7) Dyslipidemia: Status: Chronic Plan: Continue atorvastatin 10 mg p.o. nightly. (8) Hypothyroidism: Status: Chronic Qualifiers: Hypothyroidism type: acquired Qualified Code(s): E03.9 - Hypothyroidism, unspecified Plan: Continue levothyroxine 125 mcg 1 p.o. daily. (9) Tracheostomy in place: Status: Chronic
[2024-05-02] MEDS: ZyrTEC TAB 10 MG PO SCH (21:11)
[2024-05-03 06:02] LABS: BASOPHILS % (AUTO) 0.9 % (0.2-1.0); EOSINOPHILS # (AUTO) 0.4 x10^3/uL (0.0-0.2); EOSINOPHILS % (AUTO) 7.8 % (0.9-2.9); ERYTHROCYTE SEDIMENTATION RATE 87 MM/HOUR (0-15); HEMATOCRIT 32.6 % (42.0-54.0); HEMOGLOBIN 11.1 g/dL (13.5-18.0); LYMPHOCYTES # (AUTO) 0.7 X10^3/uL (1.3-2.9); LYMPHOCYTES % (AUTO) 14.5 % (21.0-51.0); MEAN CORPUSCULAR HEMOGLOBIN 30.5 pg (27.0-34.0); MEAN CORPUSCULAR VOLUME 89.9 fL (80.0-100.0); MEAN PLATELET VOLUME 6.2 fL (7.4-11.0); MONOCYTES # (AUTO) 0.5 x10^3/uL (0.3-0.8); MONOCYTES % (AUTO) 10.3 % (0.0-13.0); NEUTROPHILS # (AUTO) 3.1 x10^3/uL (2.2-4.8); NEUTROPHILS % (AUTO) 66.5 % (42.0-75.0); PLATELET COUNT 341 X10^3/uL (150.0-450.0); RED BLOOD COUNT 3.63 X10^6/uL (4.7-6.0); RED CELL DISTRIBUTION WIDTH 11.8 % (11.6-16.5); WHITE BLOOD COUNT 4.7 X10^3/uL (3.6-10.0)
[2024-05-03 06:21] LABS: ALANINE AMINOTRANSFERASE 10 Units/L (12-78); ALBUMIN 2.3 g/dL (3.4-5.0); ALKALINE PHOSPHATASE 123 Units/L (46-116); ASPARTATE AMINO TRANSFERASE 9 Units/L (15-37); BLOOD UREA NITROGEN 5 mg/dL (7-18); CALCIUM 8.9 mg/dL (8.5-10.1); CARBON DIOXIDE 32.5 mmol/L (21-32); CHLORIDE 99 mmol/L (98-107); COR CA(FOR HYPOALB) 10.3 mg/dL (8.5-10.1); COR NA(FOR HYPERGLY) 140 mmol/L (136-145); CREATININE 0.84 mg/dL (0.70-1.30); GLUCOSE 265 mg/dL (65-99); POTASSIUM 4.2 mmol/L (3.5-5.1); SODIUM 136 mmol/L (136-145); TOTAL PROTEIN 6.5 g/dL (6.4-8.2); eGFR NON BLACK RACES > 60 (>60)
[2024-05-03] MEDS: COZAAR PO SCH (08:54)
[2024-05-03] MEDS: HYDROGEN PEROXIDE 3% ONE (08:55)
[2024-05-03] MEDS: COREG TAB 12.5 MG PO SCH (09:00)
[2024-05-03 10:13] VITALS: BP 171/98; PULSE 89; RESP 18; TEMP 97.4; O2SAT 98
== END 2024-05-03 10:55 | disposition home health service (06) | DRG 571 ==
LOC: MED/SURG 14:14 → ER 14:14 → OBSVTOIN 20:04 → MED/SURG 21:03
PROVIDERS: ADMIT Surgery; ATTEND Surgery

== ENCOUNTER 2024-10-16 06:29 | Observation (INO) ==
[2024-10-16] MEDS: NOZIN NASAL SANITIZER TP ONE (06:45)
[2024-10-16] MEDS ORDERED: NS 1,000 ML IV 1,000 ML ONE (06:47)
[2024-10-16] MEDS: NS 100 ML IV 100 ML ONE (07:30)
[2024-10-16] MEDS: ANCEF VIAL 1 GRAM ONE (07:30)
[2024-10-16] MEDS: VERSED ONE (07:34)
[2024-10-16] MEDS: PEPCID 20 MG VIAL ONE (07:34)
[2024-10-16] MEDS: ZOFRAN INJ 4 MG VIAL ONE (07:34)
[2024-10-16] MEDS: REGLAN INJ 10 MG VIAL ONE (07:34)
[2024-10-16] MEDS: DIPRIVAN VIAL 20 ML ONE ×2 (07:34→08:36)
[2024-10-16] MEDS: FENTANYL VIAL INJ 100 mcg ONE (07:34)
[2024-10-16] MEDS ORDERED: KETAMINE HCL ONE (07:34)
[2024-10-16] MEDS: POLYMYXIN B SULFATE ONE (07:51)
[2024-10-16] MEDS: XYLOCAINE 1 % (PLAIN) ONE (07:51)
[2024-10-16] MEDS: NovoLIN R (or HumuLIN R) SUBCUT PRN (12:00)
[2024-10-16 13:48] LABS: BASOPHILS # (AUTO) 0.1 X10^3/uL (0.0-0.1); EOSINOPHILS # (AUTO) 0.1 x10^3/uL (0.0-0.2); HEMATOCRIT 42.1 % (42.0-54.0); HEMOGLOBIN 14.3 g/dL (13.5-18.0); LYMPHOCYTES % (AUTO) 18.4 % (21.0-51.0); MEAN CORPUSCULAR HEMOGLOBIN 31.2 pg (27.0-34.0); MEAN CORPUSCULAR VOLUME 91.5 fL (80.0-100.0); MEAN PLATELET VOLUME 6.7 fL (7.4-11.0); MONOCYTES # (AUTO) 0.4 x10^3/uL (0.3-0.8); NEUTROPHILS % (AUTO) 70.6 % (42.0-75.0); PLATELET COUNT 250 X10^3/uL (150.0-450.0); RED CELL DISTRIBUTION WIDTH 13.8 % (11.6-16.5); WHITE BLOOD COUNT 5.6 X10^3/uL (3.6-10.0)
[2024-10-16 14:02] LABS: ALANINE AMINOTRANSFERASE 21 Units/L (12-78); ALBUMIN 3.2 g/dL (3.4-5.0); ALKALINE PHOSPHATASE 170 Units/L (46-116); ASPARTATE AMINO TRANSFERASE 13 Units/L (15-37); BLOOD UREA NITROGEN 17 mg/dL (7-18); CALCIUM 8.7 mg/dL (8.5-10.1); CARBON DIOXIDE 32.4 mmol/L (21-32); CHLORIDE 97 mmol/L (98-107); COR CA(FOR HYPOALB) 9.3 mg/dL (8.5-10.1); COR NA(FOR HYPERGLY) 142 mmol/L (136-145); CREATININE 1.37 mg/dL (0.70-1.30); GLUCOSE 413 mg/dL (65-99); POTASSIUM 4.7 mmol/L (3.5-5.1); SODIUM 134 mmol/L (136-145); TOTAL PROTEIN 6.6 g/dL (6.4-8.2); eGFR NON BLACK RACES 58 (>60)
[2024-10-16] MEDS: CLEOCIN 600 MG IV PREMIX 600 MG/50 ML BAG IV SCH (14:02)
[2024-10-16] MEDS: NS 250 ML IV 250 ML IV ONE (14:03)
[2024-10-16 15:01] VITALS: BMI 21.2
[2024-10-16] MEDS: COREG TAB 12.5 MG PO SCH (18:17)
[2024-10-16] MEDS: LIPITOR TAB 10 MG PO SCH (21:10)
[2024-10-16] MEDS: SNACK - Diabetic Appropriate PO SCH (21:11)
[2024-10-17] MEDS: SYNTHROID 125 mcg TAB PO SCH (05:51)
[2024-10-17 06:09] LABS: BASOPHILS % (AUTO) 0.8 % (0.2-1.0); EOSINOPHILS # (AUTO) 0.2 x10^3/uL (0.0-0.2); EOSINOPHILS % (AUTO) 2.6 % (0.9-2.9); HEMATOCRIT 40.3 % (42.0-54.0); HEMOGLOBIN 13.9 g/dL (13.5-18.0); LYMPHOCYTES % (AUTO) 15.9 % (21.0-51.0); MEAN CORPUSCULAR HEMOGLOBIN 31.5 pg (27.0-34.0); MEAN CORPUSCULAR HGB CONC 34.4 g/dL (33.0-35.0); MEAN CORPUSCULAR VOLUME 91.5 fL (80.0-100.0); MEAN PLATELET VOLUME 7.2 fL (7.4-11.0); MONOCYTES # (AUTO) 0.5 x10^3/uL (0.3-0.8); MONOCYTES % (AUTO) 8.2 % (0.0-13.0); NEUTROPHILS # (AUTO) 4.4 x10^3/uL (2.2-4.8); NEUTROPHILS % (AUTO) 72.5 % (42.0-75.0); PLATELET COUNT 241 X10^3/uL (150.0-450.0); RED BLOOD COUNT 4.41 X10^6/uL (4.7-6.0); RED CELL DISTRIBUTION WIDTH 13.7 % (11.6-16.5); WHITE BLOOD COUNT 6.1 X10^3/uL (3.6-10.0)
[2024-10-17 06:13] LABS: ALANINE AMINOTRANSFERASE 19 Units/L (12-78); ALBUMIN 3.2 g/dL (3.4-5.0); ALKALINE PHOSPHATASE 147 Units/L (46-116); ASPARTATE AMINO TRANSFERASE 10 Units/L (15-37); BLOOD UREA NITROGEN 16 mg/dL (7-18); CALCIUM 9.4 mg/dL (8.5-10.1); CARBON DIOXIDE 35.1 mmol/L (21-32); CHLORIDE 97 mmol/L (98-107); COR NA(FOR HYPERGLY) 140 mmol/L (136-145); CREATININE 1.16 mg/dL (0.70-1.30); GLUCOSE 267 mg/dL (65-99); POTASSIUM 4.7 mmol/L (3.5-5.1); SODIUM 136 mmol/L (136-145); TOTAL PROTEIN 6.7 g/dL (6.4-8.2); eGFR NON BLACK RACES > 60 (>60)
[2024-10-17] MEDS: LOVENOX INJ 40 MG SYR SC SCH (09:45)
[2024-10-17] MEDS: LANTUS SC SCH (09:46)
[2024-10-17] MEDS: PERCOCET TAB 5/325 MG PO PRN (12:07)
--- NOTE | 2024-10-17 13:42 | DR.PROGNOT ---
HOSPITAL PROGRESS NOTE Progress Note for Day of: Progress Note Date: 10/17/24 Chief Complaint Chief Complaint: Patient is status post amputation of second third and fifth toes left foot. Patient had some bleeding from the incision last night which was controlled with local pressure. He is doing fairly well with no new complaint. Blood sugar was elevated to 297. White count 6.1. Otherwise patient is stable Dressing was removed, there is no active bleeding and no significant hematoma. Will ambulate with no weightbearing on the left foot, continue blood sugar control, IV antibiotics and planning for discharge in the morning.. Past Medical Family Social History Allergies: Allergies lisinopril Allergy (Verified 08/27/24 09:26) vancomycin Adverse Reaction (Verified 08/27/24 09:26) Vital Signs Vital Signs: Vital Signs Temperature 98.7 F Pulse Rate 76 Pulse Rate 78 Pulse Rate 74 Pulse Rate 80 Pulse Rate 72 Pulse Rate 72 Pulse Rate 74 Respiratory Rate 21 Respiratory Rate 21 Respiratory Rate 22 Respiratory Rate 17 Respiratory Rate 25 Respiratory Rate 16 Respiratory Rate 16 Respiratory Rate 18 Blood Pressure 131/79 Blood Pressure 143/88 Blood Pressure 144/86 Blood Pressure 144/86 Blood Pressure 147/86 O2 Sat by Pulse Oximetry 98 O2 Sat by Pulse Oximetry 98 O2 Sat by Pulse Oximetry 98 O2 Sat by Pulse Oximetry 99 O2 Sat by Pulse Oximetry 98 O2 Sat by Pulse Oximetry 98 O2 Sat by Pulse Oximetry 97 Physical Exam Mood Description: Calm Speech Pattern: Clear and Appropriate Laboratory and Diagnostics 10/17/24 04:35 10/17/24 04:35 Labs: Laboratory WBC 6.1 X10^3/uL (3.6-10.0) 10/17/24 04:35 RBC 4.41 X10^6/uL (4.7-6.0) L 10/17/24 04:35 Hgb 13.9 g/dL (13.5-18.0) 10/17/24 04:35 Hct 40.3 % (42.0-54.0) L 10/17/24 04:35 MCV 91.5 fL (80.0-100.0) 10/17/24 04:35 MCH 31.5 pg (27.0-34.0) 10/17/24 04:35 MCHC 34.4 g/dL (33.0-35.0) 10/17/24 04:35 RDW 13.7 % (11.6-16.5) 10/17/24 04:35 Plt Count 241 X10^3/uL (150.0-450.0) 10/17/24 04:35 MPV 7.2 fL (7.4-11.0) L 10/17/24 04:35 Neut % (Auto) 72.5 % (42.0-75.0) 10/17/24 04:35 Lymph % (Auto) 15.9 % (21.0-51.0) L 10/17/24 04:35 [place] % (Auto) 8.2 % (0.0-13.0) 10/17/24 04:35 Eos % (Auto) 2.6 % (0.9-2.9) 10/17/24 04:35 Baso % (Auto) 0.8 % (0.2-1.0) 10/17/24 04:35 Neut # (Auto) 4.4 x10^3/uL (2.2-4.8) 10/17/24 04:35 Lymph # (Auto) 1.0 X10^3/uL (1.3-2.9) L 10/17/24 04:35 [place] # (Auto) 0.5 x10^3/uL (0.3-0.8) 10/17/24 04:35 Eos # (Auto) 0.2 x10^3/uL (0.0-0.2) 10/17/24 04:35 Baso # (Auto) 0.0 X10^3/uL (0.0-0.1) 10/17/24 04:35 Absolute Nucleated RBC 0.1 /100WBC 10/17/24 04:35 Sodium 136 mmol/L (136-145) 10/17/24 04:35 Corrected Sodium 140 mmol/L (136-145) 10/17/24 04:35 Potassium 4.7 mmol/L (3.5-5.1) 10/17/24 04:35 Chloride 97 mmol/L (98-107) L 10/17/24 04:35 Carbon Dioxide 35.1 mmol/L (21-32) H 10/17/24 04:35 BUN 16 mg/dL (7-18) 10/17/24 04:35 Creatinine 1.16 mg/dL (0.70-1.30) 10/17/24 04:35 Est GFR (MDRD) Af Amer > 60 (>60) 10/17/24 04:35 Est GFR (MDRD) Non-Af > 60 (>60) 10/17/24 04:35 Glucose 267 mg/dL (65-99) H 10/17/24 04:35 POC Glucose (mg/dL) 297 mg/dL (65-99) H 10/17/24 11:57 Calcium 9.4 mg/dL (8.5-10.1) 10/17/24 04:35 Corrected Calcium 10.0 mg/dL (8.5-10.1) 10/17/24 04:35 Total Bilirubin 0.80 mg/dL (0.2-1.0) 10/17/24 04:35 AST 10 Units/L (15-37) L 10/17/24 04:35 ALT 19 Units/L (12-78) 10/17/24 04:35 Alkaline Phosphatase 147 Units/L (46-116) H 10/17/24 04:35 Total Protein 6.7 g/dL (6.4-8.2) 10/17/24 04:35 Albumin 3.2 g/dL (3.4-5.0) L 10/17/24 04:35 Globulin 3.5 g/dL (2.5-4.5) 10/17/24 04:35 Albumin/Globulin Ratio 0.9 Ratio (1.1-2.1) L 10/17/24 04:35 Assessment and Plan 1: Postop amputation of the left second and third and fifth toes. Same IV antibiotics, ambulation with crutches. Discharge in the morning. 2: Diabetes mellitus with severe diabetic neuropathy and Charcot feet.
[2024-10-18 05:32] LABS: BASOPHILS % (AUTO) 1.2 % (0.2-1.0); EOSINOPHILS # (AUTO) 0.2 x10^3/uL (0.0-0.2); HEMATOCRIT 39.7 % (42.0-54.0); LYMPHOCYTES # (AUTO) 1.1 X10^3/uL (1.3-2.9); LYMPHOCYTES % (AUTO) 29.5 % (21.0-51.0); MEAN CORPUSCULAR HEMOGLOBIN 31.8 pg (27.0-34.0); MEAN CORPUSCULAR HGB CONC 35.3 g/dL (33.0-35.0); MEAN CORPUSCULAR VOLUME 90.1 fL (80.0-100.0); MONOCYTES # (AUTO) 0.4 x10^3/uL (0.3-0.8); MONOCYTES % (AUTO) 11.8 % (0.0-13.0); NEUTROPHILS # (AUTO) 1.9 x10^3/uL (2.2-4.8); NEUTROPHILS % (AUTO) 52.5 % (42.0-75.0); PLATELET COUNT 235 X10^3/uL (150.0-450.0); RED BLOOD COUNT 4.41 X10^6/uL (4.7-6.0); RED CELL DISTRIBUTION WIDTH 13.8 % (11.6-16.5); WHITE BLOOD COUNT 3.7 X10^3/uL (3.6-10.0)
[2024-10-18 05:43] LABS: ALANINE AMINOTRANSFERASE 17 Units/L (12-78); ALKALINE PHOSPHATASE 139 Units/L (46-116); ASPARTATE AMINO TRANSFERASE 10 Units/L (15-37); BLOOD UREA NITROGEN 13 mg/dL (7-18); CALCIUM 9.4 mg/dL (8.5-10.1); CARBON DIOXIDE 33.9 mmol/L (21-32); CHLORIDE 100 mmol/L (98-107); COR CA(FOR HYPOALB) 10.2 mg/dL (8.5-10.1); COR NA(FOR HYPERGLY) 139 mmol/L (136-145); CREATININE 1.09 mg/dL (0.70-1.30); GLUCOSE 157 mg/dL (65-99); SODIUM 138 mmol/L (136-145); TOTAL PROTEIN 6.6 g/dL (6.4-8.2); eGFR NON BLACK RACES > 60 (>60)
[2024-10-18 09:53] VITALS: TEMP 98
[2024-10-18 12:58] VITALS: BP 138/83; PULSE 72; RESP 22; O2SAT 97
== END 2024-10-18 12:45 | disposition home health service (06) ==
LOC: ICU 06:29 → SURG1 06:29
PROVIDERS: ADMIT Surgery; ATTEND Surgery
DX: Z59.86 Financial insecurity; I10 Essential (primary) hypertension; E78.5 Hyperlipidemia, unspecified; E03.8 Other specified hypothyroidism; L97.529 Non-pressure chronic ulcer of other part of left foot with unspecified severity; Z89.412 Acquired absence of left great toe; E11.621 Type 2 diabetes mellitus with foot ulcer; E87.1 Hypo-osmolality and hyponatremia; Z79.4 Long term (current) use of insulin

== ENCOUNTER 2025-08-05 09:36 | Inpatient (IN) ==
[2025-08-05 10:49] LABS: MEAN PLATELET VOLUME 6.4 fL (7.4-11.0); RED CELL DISTRIBUTION WIDTH 12.8 % (11.6-16.5)
[2025-08-05 11:04] LABS: COR CA(FOR HYPOALB) 9.3 mg/dL (8.5-10.1); COR NA(FOR HYPERGLY) 140 mmol/L (136-145); CREATININE 0.98 mg/dL (0.70-1.30); eGFR NON BLACK RACES > 60 (>60)
[2025-08-05 13:00] VITALS: BMI 21.3
[2025-08-05] MEDS: NS 500 ML IV 500 ML IV ONE (13:14)
[2025-08-05] MEDS: ROCEPHIN VIAL 1 GRAM 1 G, ROCEPHIN VIAL 500 MG 500 MG in NS 50 ML IV 50 ML IV SCH (13:14)
[2025-08-05] MEDS: NovoLIN R (or HumuLIN R) SUBCUT PRN (16:58)
[2025-08-05] MEDS: VISTARIL PO SCH (20:54)
[2025-08-05] MEDS: COREG TAB 12.5 MG PO SCH (20:54)
[2025-08-05] MEDS: SNACK - Diabetic Appropriate PO SCH (20:55)
[2025-08-05] MEDS: MULTIHANCE INJ VIAL ONE (22:50)
[2025-08-06 06:04] LABS: MEAN PLATELET VOLUME 6.5 fL (7.4-11.0); RED CELL DISTRIBUTION WIDTH 12.8 % (11.6-16.5)
[2025-08-06 06:17] LABS: COR CA(FOR HYPOALB) 9.4 mg/dL (8.5-10.1); COR NA(FOR HYPERGLY) 142 mmol/L (136-145); CREATININE 1.00 mg/dL (0.70-1.30); eGFR NON BLACK RACES > 60 (>60)
--- NOTE | 2025-08-06 07:47 | RAD ---
EXAM: FOOT, LEFT HISTORY: diabetic ulcer left foot / osteomyelitis; COMPARISON: 04/29/2024 FINDINGS: .br Edema in the stump. Possible erosive changes involving the 2nd and 5th metatarsals. The talus and calcaneus appear intact. IMPRESSION: Possible findings of osteomyelitis in the remaining 2nd and 5th metatarsal. THIS IS AN ELECTRONICALLY VERIFIED FINAL REPORT 08/06/2025 7:44 AM - Electronically signed by Harsih Tobar MD
--- NOTE | 2025-08-06 07:53 | MRI ---
EXAM: EXT LOWER NON-JOINT W&W/O CON HISTORY: DIABETIC ULCER LEFT FOOT CONTRAST-MULTIHANCE 17CC LEFT AC ; COMPARISON: Plain films same day TECHNIQUE: Multiplanar, multisequence MRI of the left foot obtained without and with IV contrast. Motion limited exam. FINDINGS: Prior 1-5 transmetatarsal amputation. Edema in the forefoot. Edema, T1 signal loss, and postcontrast enhancement in the 2nd, 3rd, 4th, and 5th metatarsals. Surrounding soft tissue edema. Possible small abscess between the remaining 1st and 2nd metatarsal heads measuring approximately 2.9 x 0.2 x 2.1 cm (AP, transverse, cc). Skin defect in the lateral forefoot. Additionally, there is edema, T1 signal loss, and postcontrast enhancement in the lateral calcaneus and cuboid as well as in the navicular bone. IMPRESSION: Findings concerning for osteomyelitis in the 2-5 metatarsals, navicular, and lateral calcaneus and cuboid. Likely small abscess between the 1st and 2nd metatarsal bones measuring approximately 2.9 x 0.2 x 2.1 cm. THIS IS AN ELECTRONICALLY VERIFIED FINAL REPORT 08/06/2025 7:50 AM - Electronically signed by Harish Tobar MD
[2025-08-06] MEDS: LANTUS SC SCH (09:24)
[2025-08-06] MEDS: ASPIRIN PO SCH (09:24)
--- NOTE | 2025-08-06 10:43 | DR.PROGNOT ---
HOSPITAL PROGRESS NOTE Progress Note for Day of: Progress Note Date: 08/06/25 Past Medical Family Social History Allergies: Allergies lisinopril Allergy (Verified 08/05/25 08:56) vancomycin Adverse Reaction (Verified 08/05/25 08:56) c/o burning feeling of the left foot, he still having moderate bloody drainage from the lateral aspect of the left forefoot. Final culture is not available yet. MRI of the left foot showed status post forefoot amputation with osteomyelitis in the 2nd, 3rd, 4th and 5th metatarsals, lateral calcaneus and cuboid. Small abscess between the 1st and 2nd metatarsal bones measuring 2.9 x 0.2 cm. Sed rate 27. BUN/creatinine and liver enzymes are normal, white count is 4.2, blood sugar 233. Patient has moderate edema of the left foot no significant cellulitis, no necrosis or clear abscess formation outside. Vital Signs Vital Signs: Vital Signs Temperature 98.6 F Temperature 98.0 F Pulse Rate [Right Radial] 78 Pulse Rate [Right Radial] 77 Respiratory Rate 18 Respiratory Rate 20 Blood Pressure [Right Arm] 153/84 Blood Pressure [Right Arm] 110/64 O2 Sat by Pulse Oximetry 99 O2 Sat by Pulse Oximetry 99 Physical Exam Oriented: Normal Eyes: Normal Ear: Normal Nose: Normal Throat: Normal Respiratory: Normal and OTHER (He has permanent tracheostomy after surgery for cancer.) Speech Pattern: Clear and Trach(not ventilated) Laboratory and Diagnostics 08/06/25 05:32 08/06/25 05:32 Labs: 08/05/25 11:10 Foot - Left Wound Gram Stain - Final 08/05/25 11:10 Foot - Left Wound Culture - Preliminary Laboratory WBC 4.2 X10^3/uL (3.6-10.0) 08/06/25 05:32 RBC 4.16 X10^6/uL (4.7-6.0) L 08/06/25 05:32 Hgb 13.4 g/dL (13.5-18.0) L 08/06/25 05:32 Hct 38.4 % (42.0-54.0) L 08/06/25 05:32 MCV 92.5 fL (80.0-100.0) 08/06/25 05:32 MCH 32.1 pg (27.0-34.0) 08/06/25 05:32 MCHC 34.7 g/dL (33.0-35.0) 08/06/25 05:32 RDW 12.8 % (11.6-16.5) 08/06/25 05:32 Plt Count 285 X10^3/uL (150.0-450.0) 08/06/25 05:32 MPV 6.5 fL (7.4-11.0) L 08/06/25 05:32 Neut % (Auto) 70.4 % (42.0-75.0) 08/06/25 05:32 Lymph % (Auto) 15.7 % (21.0-51.0) L 08/06/25 05:32 [place] % (Auto) 9.1 % (0.0-13.0) 08/06/25 05:32 Eos % (Auto) 3.7 % (0.9-2.9) H 08/06/25 05:32 Baso % (Auto) 1.1 % (0.2-1.0) H 08/06/25 05:32 Neut # (Auto) 2.9 x10^3/uL (2.2-4.8) 08/06/25 05:32 Lymph # (Auto) 0.7 X10^3/uL (1.3-2.9) L 08/06/25 05:32 [place] # (Auto) 0.4 x10^3/uL (0.3-0.8) 08/06/25 05:32 Eos # (Auto) 0.2 x10^3/uL (0.0-0.2) 08/06/25 05:32 Baso # (Auto) 0.0 X10^3/uL (0.0-0.1) 08/06/25 05:32 Absolute Nucleated RBC 0.1 /100WBC 08/06/25 05:32 ESR 27 MM/HOUR (0-15) H 08/05/25 10:37 Sodium 139 mmol/L (136-145) 08/06/25 05:32 Corrected Sodium 142 mmol/L (136-145) 08/06/25 05:32 Potassium 4.4 mmol/L (3.5-5.1) 08/06/25 05:32 Chloride 100 mmol/L (98-107) 08/06/25 05:32 Carbon Dioxide 31.6 mmol/L (21-32) 08/06/25 05:32 BUN 9 mg/dL (7-18) 08/06/25 05:32 Creatinine 1.00 mg/dL (0.70-1.30) 08/06/25 05:32 Est GFR (MDRD) Af Amer > 60 (>60) 08/06/25 05:32 Est GFR (MDRD) Non-Af > 60 (>60) 08/06/25 05:32 Glucose 233 mg/dL (65-99) H 08/06/25 05:32 POC Glucose (mg/dL) 232 mg/dL (65-99) H 08/06/25 05:32 Calcium 8.4 mg/dL (8.5-10.1) L 08/06/25 05:32 Corrected Calcium 9.4 mg/dL (8.5-10.1) 08/06/25 05:32 Total Bilirubin 0.50 mg/dL (0.2-1.0) 08/06/25 05:32 AST 18 Units/L (15-37) 08/06/25 05:32 ALT 19 Units/L (12-78) 08/06/25 05:32 Alkaline Phosphatase 158 Units/L (46-116) H 08/06/25 05:32 Total Protein 6.6 g/dL (6.4-8.2) 08/06/25 05:32 Albumin 2.7 g/dL (3.4-5.0) L 08/06/25 05:32 Globulin 3.9 g/dL (2.5-4.5) 08/06/25 05:32 Albumin/Globulin Ratio 0.7 Ratio (1.1-2.1) L 08/06/25 05:32 Assessment and Plan 1: Diabetic left foot ulcer . 2: Osteomyelitis involving 2nd, 3rd, 4th and 5th metatarsals as well as lateral calcaneus and cuboid. Small abscess between 1st and 2nd metatarsal bones measuring 2.9 x 0.2 cm Elevated sed rate to 27 To continue IV antibiotics till final culture report is available. Will debride the ulcer in the operating room and hopefully will be able to get into the abscess and drain it as well. Long-term IV antibiotics for at least 6 weeks.
[2025-08-06] MEDS ORDERED: NS IRRIGATION* 500 ML IR ONE (21:51)
[2025-08-06] MEDS: HYDROGEN PEROXIDE 3% EXT PRN (22:04)
[2025-08-06] MEDS: NS IRRIGATION* 500 ML IR PRN (22:05)
[2025-08-07 05:51] LABS: MEAN PLATELET VOLUME 6.2 fL (7.4-11.0); RED CELL DISTRIBUTION WIDTH 12.9 % (11.6-16.5)
[2025-08-07 06:09] LABS: COR CA(FOR HYPOALB) 9.6 mg/dL (8.5-10.1); COR NA(FOR HYPERGLY) 143 mmol/L (136-145); CREATININE 1.03 mg/dL (0.70-1.30); eGFR NON BLACK RACES > 60 (>60)
--- NOTE | 2025-08-07 09:20 | DR.PROGNOT ---
HOSPITAL PROGRESS NOTE Progress Note for Day of: Progress Note Date: 08/07/25 Chief Complaint Chief Complaint: Less drainage from the left foot ulcer, no pain but complaining of burning feeling and neuropathy. White count is 3.7, sed rate 27. MRI as mentioned before. Showing osteomyelitis involving 2nd, 3rd, 4th and 5th metatarsals with small abscess. No changes in medical history Past Medical Family Social History Past Med/Fam/Surg Hx: No changes since H&P Allergies: Allergies lisinopril Allergy (Verified 08/05/25 08:56) vancomycin Adverse Reaction (Verified 08/05/25 08:56) Vital Signs Vital Signs: Vital Signs Temperature 97.8 F Pulse Rate [Right Radial] 79 Respiratory Rate 18 Blood Pressure [Right Arm] 146/86 O2 Sat by Pulse Oximetry 99 Physical Exam Oriented: Normal Eyes: Normal Ear: Normal Nose: Normal Throat: Normal Respiratory: Normal and OTHER (He has permanent tracheostomy after surgery for cancer.) Cardiovascular: Normal : Normal GI:Auscultation: Normal GI: Tenderness: Normal Skin: Other (1 x 1 cm deep ulcer plantar aspect of Lt the foot, mild bloody drainage which was recultured today.) Speech Pattern: Clear and Trach(not ventilated) Laboratory and Diagnostics 08/07/25 05:40 08/07/25 05:40 Labs: 08/05/25 11:10 Foot - Left Wound Gram Stain - Final 08/05/25 11:10 Foot - Left Wound Culture - Preliminary Laboratory WBC 3.7 X10^3/uL (3.6-10.0) 08/07/25 05:40 RBC 4.10 X10^6/uL (4.7-6.0) L 08/07/25 05:40 Hgb 13.2 g/dL (13.5-18.0) L 08/07/25 05:40 Hct 38.0 % (42.0-54.0) L 08/07/25 05:40 MCV 92.7 fL (80.0-100.0) 08/07/25 05:40 MCH 32.2 pg (27.0-34.0) 08/07/25 05:40 MCHC 34.7 g/dL (33.0-35.0) 08/07/25 05:40 RDW 12.9 % (11.6-16.5) 08/07/25 05:40 Plt Count 287 X10^3/uL (150.0-450.0) 08/07/25 05:40 MPV 6.2 fL (7.4-11.0) L 08/07/25 05:40 Neut % (Auto) 56.3 % (42.0-75.0) 08/07/25 05:40 Lymph % (Auto) 28.6 % (21.0-51.0) 08/07/25 05:40 [place] % (Auto) 8.7 % (0.0-13.0) 08/07/25 05:40 Eos % (Auto) 5.4 % (0.9-2.9) H 08/07/25 05:40 Baso % (Auto) 1.0 % (0.2-1.0) 08/07/25 05:40 Neut # (Auto) 2.1 x10^3/uL (2.2-4.8) L 08/07/25 05:40 Lymph # (Auto) 1.1 X10^3/uL (1.3-2.9) L 08/07/25 05:40 [place] # (Auto) 0.3 x10^3/uL (0.3-0.8) 08/07/25 05:40 Eos # (Auto) 0.2 x10^3/uL (0.0-0.2) 08/07/25 05:40 Baso # (Auto) 0.0 X10^3/uL (0.0-0.1) 08/07/25 05:40 Absolute Nucleated RBC 0.2 /100WBC 08/07/25 05:40 ESR 27 MM/HOUR (0-15) H 08/05/25 10:37 Sodium 139 mmol/L (136-145) 08/07/25 05:40 Corrected Sodium 143 mmol/L (136-145) 08/07/25 05:40 Potassium 4.7 mmol/L (3.5-5.1) 08/07/25 05:40 Chloride 101 mmol/L (98-107) 08/07/25 05:40 Carbon Dioxide 32.9 mmol/L (21-32) H 08/07/25 05:40 BUN 8 mg/dL (7-18) 08/07/25 05:40 Creatinine 1.03 mg/dL (0.70-1.30) 08/07/25 05:40 Est GFR (MDRD) Af Amer > 60 (>60) 08/07/25 05:40 Est GFR (MDRD) Non-Af > 60 (>60) 08/07/25 05:40 Glucose 285 mg/dL (65-99) H 08/07/25 05:40 POC Glucose (mg/dL) 258 mg/dL (65-99) H 08/07/25 05:56 Calcium 8.6 mg/dL (8.5-10.1) 08/07/25 05:40 Corrected Calcium 9.6 mg/dL (8.5-10.1) 08/07/25 05:40 Total Bilirubin 0.30 mg/dL (0.2-1.0) 08/07/25 05:40 AST 16 Units/L (15-37) 08/07/25 05:40 ALT 22 Units/L (12-78) 08/07/25 05:40 Alkaline Phosphatase 155 Units/L (46-116) H 08/07/25 05:40 Total Protein 6.5 g/dL (6.4-8.2) 08/07/25 05:40 Albumin 2.8 g/dL (3.4-5.0) L 08/07/25 05:40 Globulin 3.7 g/dL (2.5-4.5) 08/07/25 05:40 Albumin/Globulin Ratio 0.8 Ratio (1.1-2.1) L 08/07/25 05:40 Assessment and Plan 1: Diabetic left foot ulcer . 2: Osteomyelitis involving 2nd, 3rd, 4th and 5th metatarsals as well as lateral calcaneus and cuboid. Small abscess between 1st and 2nd metatarsal bones measuring 2.9 x 0.2 cm Elevated sed rate to 27 To continue IV antibiotics till final culture report is available. Long-term IV antibiotics for at least 6 weeks.
[2025-08-07] MEDS: MAXIPIME VIAL 2 GRAMS 2 G in NS 100 ML IV 100 ML IV SCH (15:12)
--- NOTE | 2025-08-07 15:29 | DR.UPDATE ---
H&P Update Prescription drug monitoring program results: PDMP was not reviewed H&P Reviewed: Yes Any changes to H&P?: No Patient was examined?: Yes Vital Signs: Temp Pulse Resp BP BP Pulse Ox O2 Del Method 08/07/25 12:59 156/76 08/07/25 12:00 98.0 F 72 19 160/70 99 Room Air 08/07/25 09:00 154/62 08/07/25 08:00 98.4 F 78 18 160/60 98 Room Air 08/07/25 07:00 Room Air 08/07/25 04:00 97.8 F 79 18 146/86 99 Room Air 08/07/25 00:00 97.7 F 78 18 127/75 99 Room Air 08/06/25 21:30 140/72 08/06/25 20:00 98.1 F 90 18 198/105 98 Room Air 08/06/25 19:00 Room Air 08/06/25 16:44 158/94 08/06/25 16:00 98.4 F 74 19 190/55 98 Room Air 08/06/25 12:00 98.5 F 70 18 145/80 96 Room Air 08/06/25 08:00 98.6 F 78 18 153/84 99 Room Air 08/06/25 07:00 Room Air 08/06/25 04:00 98.0 F 77 20 110/64 99 Room Air 08/06/25 00:00 97.8 F 70 20 92/57 95 Room Air 08/05/25 22:30 136/78 08/05/25 20:00 98.0 F 74 20 178/86 97 Room Air 08/05/25 19:00 Room Air 08/05/25 16:00 98.3 F 71 20 141/73 97 Room Air 08/05/25 12:00 98.3 F 77 20 133/75 98 Room Air 08/05/25 10:00 Room Air 08/05/25 10:00 98 F 73 19 129/77 99 Room Air 08/05/25 08:54 149/84 Procedures (ALL) - Central Line Placement PCM.CLCO: written consent Time out performed: Yes Patient placed pm monitor/pulse ox: Yes prep: mask, gown, gloves, other Centrial line prep: chlorhexidine scrub, sterile drapes applied Local anesthsia used: lidocane 1% Ultrasound used for placement: Yes (left cephalic v id'd via u/s and cannulation vis) Central line lumen ininserted: double (5.5fr arrowgard. trimmed to 48cm with 2cm exposed) Post procedure: good blood return, all ports aspirated, flushed,capped, sterile dressing applied Post procedure xray: tip oc catheter in good position (appears scv, radiology report pending), no pneumothorax seen Patient tolerated procedure: Yes Complications: none
--- NOTE | 2025-08-07 15:45 | RAD ---
EXAM: CHEST, 1 VIEW HISTORY: PICC LINE PLACEMENT; COMPARISON: 09/30/2024 TECHNIQUE: .br.br.br.br Unremarkable cardiac silhouette. No focal consolidation, pleural effusion, or visible pneumothorax. Chronic mildly prominent interstitial lung markings. IMPRESSION: Left upper extremity PICC tip over the low SVC. No acute findings. THIS IS AN ELECTRONICALLY VERIFIED FINAL REPORT 08/07/2025 3:41 PM - Electronically signed by Reed Alvares MD
[2025-08-07] MEDS: COZAAR PO SCH (21:34)
[2025-08-08 06:21] LABS: MEAN PLATELET VOLUME 6.4 fL (7.4-11.0); RED CELL DISTRIBUTION WIDTH 12.8 % (11.6-16.5)
[2025-08-08 06:32] LABS: COR CA(FOR HYPOALB) 9.5 mg/dL (8.5-10.1); COR NA(FOR HYPERGLY) 144 mmol/L (136-145); CREATININE 1.06 mg/dL (0.70-1.30); eGFR NON BLACK RACES > 60 (>60)
[2025-08-08 13:01] VITALS: BP 162/98; PULSE 72; RESP 19; TEMP 98.2; O2SAT 98
--- NOTE | 2025-08-08 13:13 | DR.CONSULT ---
CONSULT Consultation for Day of: Date: 08/08/25 Chief Complaint Chief Complaint: HTN Allergies Allergies Allergy/AdvReac Type Severity Reaction Status Date / Time lisinopril Allergy Verified 08/05/25 08:56 vancomycin AdvReac Verified 08/05/25 08:56 History of Present Illness History of Present Illness: Consult placed due to elevated blood pressures. He is here under general surgeon care due to osteomyelitis of his left foot secondary to his diabetes. He reports he is doing well and normally has better blood pressures at home. Currently eating breakfast with plans for discharge home today on IV antibiotics. Seen with nurse at bedside. ROS: 12 point ROS negative except for pain in the left foot and tracheostomy status. PE: Well-developed, well-nourished male in no acute distress. Trachea is midline with tracheostomy in place. Lungs are clear with regular rate and rhythm. Bowel sounds are present. Mood and affect are appropriate. 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 Past Surgical History Surgical History: Cholecystectomy Family History Family Medical History: Diabetes Mellitus, Cancer and Hypertension Social History How many years tobacco product used: 20 Does any household member use tobacco: No Alcohol Use: None Drug Use: None Medications Home Medications: lisinopril Allergy (Verified 08/05/25 08:56) vancomycin Adverse Reaction (Verified 08/05/25 08:56) New Prescriptions cefepime 2 gram solution for injection 2 g IV Q12H 42 days #84 ea 08/07/25 [Rx] Physical Exam Vital Signs: Vital Signs Temperature 97.9 F Pulse Rate [Right Radial] 78 Respiratory Rate 18 Blood Pressure [Right Arm] 135/75 O2 Sat by Pulse Oximetry 99 Plan (1) HTN (hypertension): Status: Chronic Qualifiers: Hypertension type: primary hypertension Qualified Code(s): I10 - Essential (primary) hypertension Narrative Support Text: Patient is to continue Coreg. Losartan added on, as well. Patient reports he usually has elevated blood pressure readings in facility but normal at home. There have been times when he is only had to take 1 dose of Coreg in a day. Currently denies any worsening edema, chest pain, or LEVY. Tolerating his first dose of losartan with no problems. (2) Abscess of left foot: Status: None (3) Status post amputation of left foot through metatarsal bone: Status: Acute (4) Chronic osteomyelitis of toe of left foot: Status: Chronic (5) Tracheostomy in place: Status: Chronic
== END 2025-08-08 13:35 | disposition home health service (06) | DRG 638 ==
LOC: MED/SURG
PROVIDERS: ADMIT Surgery; ATTEND Surgery
DX: Z16.29 Resistance to other single specified antibiotic; E78.5 Hyperlipidemia, unspecified; M86.672 Other chronic osteomyelitis, left ankle and foot; L02.612 Cutaneous abscess of left foot; E83.51 Hypocalcemia; R70.0 Elevated erythrocyte sedimentation rate; E03.8 Other specified hypothyroidism; E11.65 Type 2 diabetes mellitus with hyperglycemia; E87.6 Hypokalemia; I10 Essential (primary) hypertension; L97.428 Non-pressure chronic ulcer of left heel and midfoot with other specified severity; E11.621 Type 2 diabetes mellitus with foot ulcer; Z93.0 Tracheostomy status; D72.828 Other elevated white blood cell count; B96.83 Acinetobacter baumannii as the cause of diseases classified elsewhere; I87.2 Venous insufficiency (chronic) (peripheral); Z79.4 Long term (current) use of insulin; Z89.422 Acquired absence of other left toe(s)

== ENCOUNTER 2025-10-02 11:46 | Observation (INO) ==
[2025-10-02 12:12] VITALS: BMI 21.9
[2025-10-02 12:43] LABS: MEAN PLATELET VOLUME 6.6 fL (7.4-11.0); RED CELL DISTRIBUTION WIDTH 12.2 % (11.6-16.5)
--- NOTE | 2025-10-02 12:50 | DR.EXTPAIN ---
HPI Time seen Time Seen by Provider: 10/02/25 12:49 PCP Primary Care Physician: jase pineda Complaint/Symptoms Chief Complaint Doctor Comments: Patient with diabetic ulcer to the bottom of his left foot. Patient has been following up with Dr. Polanco, surgeon, he was sent here by Dr. Polanco because he started having worsening pain and some swelling and some odor to the wound. Patient had been diagnosed with osteomyelitis and was doing cefepime via his PICC line. He stopped the antibiotics about 2 weeks ago. Chief Complaint:: Patient states he was discharged back in july with a picc line and antibiotics and he took them for x6 wks for his diabetic ulcer to the bottom of his left foot and states he notice this morning it is a little red and swollen and has a little odor to it as well and increase pain when he walks. COVID-19 Coronavirus risk:travel/contact w/high risk person: No Has patient experienced Coronavirus symptoms: No Source History Provided: Patient Mode of arrival Mode of Arrival: Ambulatory Timing Onset of Chief Complaint: 08/06/25 PMH PMH Past Medical History: Yes Past Medical History: CVA, Diabetes, Dyslipidemia, GERD, Hypertension, Hypothyroidism and Cancer Past Medical History Comment: throat ca, trach Past Surgical History: Yes Surgical History: Cholecystectomy and Ortho Surgery Past Surgical History Comment: big toe removed right foot, all toes removed from left foot. Family History History of Family Medical Conditions: Yes Family Medical History: Diabetes Mellitus, Cancer and Hypertension Social History Does patient currently use any type of tobacco product: No Have you used tobacco products in the last 12 months: No Type of Tobacco Use: None Does any household member use tobacco: No Alcohol Use: DAILY Do you use any recreational Drugs:: No Lives With: Family Lives Where: Home Travel Risk Coronavirus risk:travel/contact w/high risk person: No Has patient experienced Coronavirus symptoms: No Infectious screening In the last 2 months have you had wt loss of >10#?: NO Have you had fever, night sweats or hemotysis?: No Have you traveled outside the country in the last 6 months?: No Isolation: Standard ROS Review of Systems Constitutional: No Symptoms Reported Eyes: No Symptoms Reported ENTM: No Symptoms Reported Respiratoy: No Symptoms Reported Cardiovascular: No Symptoms Reported Gastrointestinal/Abdominal: No Symptoms Reported Genitourinary: No Symptoms Reported Neurological: No Symptoms Reported Musculoskeletal: See HPI Integumentary: No Symptoms Reported Hematologic/Lymphatic: No Symptoms Reported PE Vital Signs Vitals: Vital Signs Temperature 98.5 F Pulse Rate 89 Respiratory Rate 16 Blood Pressure 165/89 O2 Sat by Pulse Oximetry 97 General Limitations: No Limitations and Language Barrier General Appearance: Alert and In No Apparent Distress Head Head Exam: Normal Inspection, Atraumatic and Normocephalic Eyes Eye exam: Normal Appearance, PERRL and EOMI ENT ENT Exam: Mucous Membranes Moist Neck Neck Exam: Normal Inspection and Full ROM Chest Chest Inspection: Normal Inspection and Symmetric Chest Wall Rise Respiratory Respiratory Exam: Normal Lung Sounds Bilat Respiratory Exam: Bilateral: Clear to Auscultation Cardiovascular Cardiovascular Exam: +S1 and +S2 Abdominal Exam Abdominal Exam: Normal Inspection, Normal Bowel Sounds and Soft Extremities Extremities Exam: Other (Left lower extremity diabetic ulcer noted on left foot. Foot has had some amputations performed.) COURSE Treatment Treatment: Patient sent here by surgeon in the hopes of admission to follow as inpatient with request admitted to medical with consultation to surgeon. Patient stable at this time. First dose of cefepime administered in ER. Wound cultures obtained. Patient agreeable with admission. Consultation Consultation Comments: Discussed case with Dr. Hart and she is agreeable to admission. [facility] Labs Reviewed 10/02/25 12:10/02/25 12:25 Laboratory: WBC 8.2 X10^3/uL (3.6-10.0) 10/02/25 12:25 RBC 4.82 X10^6/uL (4.7-6.0) 10/02/25 12:25 Hgb 15.3 g/dL (13.5-18.0) 10/02/25 12:25 Hct 43.9 % (42.0-54.0) 10/02/25 12:25 MCV 91.1 fL (80.0-100.0) 10/02/25 12:25 MCH 31.6 pg (27.0-34.0) 10/02/25 12:25 MCHC 34.7 g/dL (33.0-35.0) 10/02/25 12:25 RDW 12.2 % (11.6-16.5) 10/02/25 12:25 Plt Count 305 X10^3/uL (150.0-450.0) 10/02/25 12:25 MPV 6.6 fL (7.4-11.0) L 10/02/25 12:25 Neut % (Auto) 78.1 % (42.0-75.0) H 10/02/25 12:25 Lymph % (Auto) 11.1 % (21.0-51.0) L 10/02/25 12:25 [place] % (Auto) 7.5 % (0.0-13.0) 10/02/25 12:25 Eos % (Auto) 2.6 % (0.9-2.9) 10/02/25 12:25 Baso % (Auto) 0.7 % (0.2-1.0) 10/02/25 12:25 Neut # (Auto) 6.4 x10^3/uL (2.2-4.8) H 10/02/25 12:25 Lymph # (Auto) 0.9 X10^3/uL (1.3-2.9) L 10/02/25 12:25 [place] # (Auto) 0.6 x10^3/uL (0.3-0.8) 10/02/25 12:25 Eos # (Auto) 0.2 x10^3/uL (0.0-0.2) 10/02/25 12:25 Baso # (Auto) 0.1 X10^3/uL (0.0-0.1) 10/02/25 12:25 Absolute Nucleated RBC 0.0 /100WBC 10/02/25 12:25 Sodium 137 mmol/L (136-145) 10/02/25 12:25 Corrected Sodium 141 mmol/L (136-145) 10/02/25 12:25 Potassium 4.5 mmol/L (3.5-5.1) 10/02/25 12:25 Chloride 99 mmol/L (98-107) 10/02/25 12:25 Carbon Dioxide 28.1 mmol/L (21-32) 10/02/25 12:25 BUN 15 mg/dL (7-18) 10/02/25 12:25 Creatinine 1.12 mg/dL (0.70-1.30) 10/02/25 12:25 Est GFR (MDRD) Af Amer > 60 (>60) 10/02/25 12:25 Est GFR (MDRD) Non-Af > 60 (>60) 10/02/25 12:25 Glucose 247 mg/dL (65-99) H 10/02/25 12:25 Lactic Acid 0.8 mmol/L (0.4-2.0) 10/02/25 12:25 Calcium 8.8 mg/dL (8.5-10.1) 10/02/25 12:25 Corrected Calcium 9.7 mg/dL (8.5-10.1) 10/02/25 12:25 Total Bilirubin 0.90 mg/dL (0.2-1.0) 10/02/25 12:25 AST 10 Units/L (15-37) L 10/02/25 12:25 ALT 12 Units/L (12-78) 10/02/25 12:25 Alkaline Phosphatase 170 Units/L (46-116) H 10/02/25 12:25 Total Protein 7.5 g/dL (6.4-8.2) 10/02/25 12:25 Albumin 2.9 g/dL (3.4-5.0) L 10/02/25 12:25 Globulin 4.6 g/dL (2.5-4.5) H 10/02/25 12:25 Albumin/Globulin Ratio 0.6 Ratio (1.1-2.1) L 10/02/25 12:25 Opioid Opioid Risk Tool Age (Tylor box if 16-45): No History of Preadolescent Sexual Abuse: No Total: 0 Total Score Risk Category: Low Risk Copyright: [facility] predicting aberrant behaviors Discharge Plan Diagnosis Discharge Problem: Foot osteomyelitis, left Diabetic ulcer of left foot Qualifiers: Diabetic foot ulcer location: other Discharge Plan Patient Disposition: 09 ADMITTED INPATIENT Condition: Stable Prescriptions: No Action sildenafil 100 mg tablet 100 mg PO PRN PRN Patient Comments: [NO ORIGINAL SIG] levothyroxine 112 mcg tablet 112 mcg PO DAILY Patient Comments: [NO ORIGINAL SIG] losartan [Cozaar] 50 mg tablet 100 mg PO QDAY carvedilol 12.5 mg tablet 12.5 mg PO BID Patient Comments: [NO ORIGINAL SIG] hydroxyzine pamoate 25 mg capsule 25 mg PO HS insulin glargine [Lantus Solostar U-100 Insulin] 100 unit/mL (3 mL) insulin pen 16 unit SUBCUT QAM Patient Comments: Pt states he is currently taking 16 units QAM, rx at pharmacy hasn't changed yet aspirin 325 mg Tablet 325 mg PO QDAY insulin aspart U-100 [Novolog FlexPen U-100 Insulin] 100 unit/mL (3 mL) insulin pen See Rx Instructions .ROUTE .COMPLEX Patient Comments: Pt states his advertising specialist in [place] ordered the SS for him to follow Rx Instructions: per sliding scale Health Concerns: Post Hospitalization: new medications and changes needed to prevent readmission or further decline. Pt educated and given instructions on all concerns. Plan of Treatment: Continue with present treatment and follow up plan. Pt is to keep follow up appointment as instructed and take medications as ordered. Orders to Discharge Patient Discharge Orders: Transfer (Routine); Ordered 10/02/25 Ordered By: Cyrus Boles Follow ups/Referrals Follow ups/Referrals: JASE PINEDA [Primary Care Provider, Unknown] - 3 days Instructions Stand Alone Forms: Find Help Web Site, Post Hospital Follow Up Care Print Language: RUSSIAN
[2025-10-02 13:00] LABS: COR CA(FOR HYPOALB) 9.7 mg/dL (8.5-10.1); COR NA(FOR HYPERGLY) 141 mmol/L (136-145); CREATININE 1.12 mg/dL (0.70-1.30); eGFR NON BLACK RACES > 60 (>60)
[2025-10-02] MEDS: MAXIPIME VIAL 1 GRAM 1 G in NS 50 ML IV 50 ML IV SCH (14:00)
[2025-10-02] MEDS: NS 1,000 ML IV 1,000 ML IV ONE (14:27)
[2025-10-02] MEDS ORDERED: MORPHINE SULFATE INJ 2 MG INJ IVP PRN (14:33)
[2025-10-02] MEDS ORDERED: MAXIPIME VIAL 1 GRAM 1 G in NS 50 ML IV 50 ML IV SCH (14:33)
[2025-10-02] MEDS ORDERED: ULTRAM PO PRN (14:33)
[2025-10-02] MEDS: NS 1,000 ML IV 1,000 ML ONE (14:57)
[2025-10-02] MEDS ORDERED: CONSULT PHARMACY - POTASSIUM & MAGNESIUM XX SCH (15:00)
[2025-10-02] MEDS: NS 1,000 ML IV 1,000 ML IV SCH (15:35)
[2025-10-02] MEDS: NORCO 5/325 MG TAB PO PRN (15:37)
[2025-10-02] MEDS: NovoLIN R (or HumuLIN R) SUBCUT PRN (16:08)
[2025-10-02] MEDS: SNACK - Diabetic Appropriate PO SCH (21:00)
[2025-10-02] MEDS: COLACE CAP 100 MG PO SCH (21:02)
[2025-10-02] MEDS: VISTARIL PO SCH (21:02)
[2025-10-02] MEDS: COREG TAB 12.5 MG PO SCH (21:02)
[2025-10-03 05:04] LABS: MEAN PLATELET VOLUME 6.6 fL (7.4-11.0); RED CELL DISTRIBUTION WIDTH 12.2 % (11.6-16.5)
[2025-10-03 05:14] LABS: COR CA(FOR HYPOALB) 9.8 mg/dL (8.5-10.1); COR NA(FOR HYPERGLY) 140 mmol/L (136-145); CREATININE 1.02 mg/dL (0.70-1.30); eGFR NON BLACK RACES > 60 (>60)
[2025-10-03] MEDS: COZAAR PO SCH (10:21)
[2025-10-03] MEDS: ASPIRIN PO SCH (10:21)
[2025-10-03] MEDS: LANTUS SC SCH (11:00)
--- NOTE | 2025-10-03 11:07 | RAD ---
EXAM: FOOT, LEFT HISTORY: OSTEOMYELITIS; disregard 3 duplicate images sent COMPARISON: 08/05/2025; MRI dated 09/24/2025 TECHNIQUE: 3 views FINDINGS: Stable postsurgical changes from partial 1-3 ray amputations at the metatarsophalangeal joints with mild 2nd metatarsal head cortical irregularity. Prior partial 4th ray transmetatarsal amputation with no significant cortical irregularity. Prior partial 5th transmetatarsal amputation. The 5th metatarsal surgical margin is irregular with surrounding osseous proliferation. Distal foot soft tissue ulcers. No radiopaque foreign bodies. IMPRESSION: Persistent 2nd and 5th metatarsal surgical remnant cortical irregularity, again concerning for osteomyelitis. THIS IS AN ELECTRONICALLY VERIFIED FINAL REPORT 10/03/2025 11:03 AM - Electronically signed by Reed Alvares MD
[2025-10-03] MEDS: CATAPRES TAB 0.1 MG PO ONE (11:27)
--- NOTE | 2025-10-03 11:38 | EKG ---
Test Reason : BP 178/102 Blood Pressure : */* mmHG Vent. Rate : 81 BPM Atrial Rate : 81 BPM P-R Int : 168 ms QRS Dur : 80 ms QT Int : 384 ms P-R-T Axes : 55 8 19 degrees QTc Int : 446 ms Normal sinus rhythm Anterior infarct (cited on or before 17-APR-2023) Abnormal ECG When compared with ECG of 30-SEP-2024 09:32, Nonspecific T wave abnormality now evident in Inferior leads Confirmed by Billy Jeong MD ([id number]) on 10/04/2025 5:59:17 AM Referred By: Confirmed By: Billy Jeong MD
[2025-10-03] MEDS: TYLENOL 325 MG TAB PO PRN (12:10)
--- NOTE | 2025-10-03 13:34 | DR.H&P ---
H&P History & Physical for Day of: H&P Date: 10/03/25 Chief Complaint Chief Complaint: left foot pain, redness History of Present Illness History of Present Illness: Patient is a 55-year-old male with a past medical history of severe peripheral neuropathy with diabetes mellitus and Charcot foot, Osteomyelitis, Hypertension, Hypothyroidism, presenting with worsening redness and some swelling in the left foot. He recently got an MRI of the left foot that revealed persistent but decreased signal in the 2, 4, and 5 metatarsal remnants again concerning for osteomyelitis. Heterogeneous subcutaneous fluid along distal aspect of 4th and 5th metatarsal remnants without definite abscess. He reports having recently completed IV antibiotics with cefepime 2 weeks ago. Labs/imaging: WBC 5.5, hemoglobin 14.7, platelets 310, sodium 139, potassium 4.0, creatinine 1.02, glucose 156. Blood/wound culture pending. Patient was admitted for left foot cellulitis and osteomyelitis. General surgery was consulted, will follow-up recommendations. Continue with wound care. Continue IV antibiotics cefepime along with IV fluids. Pain control. Restart home medications. Otherwise continue with current treatment plan. Continue to closely monitor and follow-up labs/imaging. Past Medical History Past Medical History: CVA, Diabetes, Dyslipidemia, GERD, Hypertension, Hypothyroidism and Cancer Additional Medical History: Bilateral Charcot feet, history of laryngeal cancer status post resection and tracheostomy Past Surgical History Surgical History: Cholecystectomy and Ortho Surgery Family History Family Medical History: Diabetes Mellitus, Cancer and Hypertension Social History Does patient currently use any type of tobacco product: No Have you used tobacco products in the last 12 months: No Type of Tobacco Use: None Does any household member use tobacco: No Alcohol Use: None Drug Use: None Medications Home Medications: Home Medications Medication Instructions Recorded Confirmed Type aspirin 325 mg tablet 325 mg PO QDAY 02/08/2509/14 History carvedilol 12.5 mg tablet 12.5 mg PO BID 02/08/2509/14 History hydroxyzine pamoate 25 mg capsule 25 mg PO HS 02/08/25 10/02/25 History insulin glargine 100 unit/mL (3 16 unit subcut QAM 10/02/25 History mL) subcutaneous pen (Lantus Solostar U-100 Insulin) levothyroxine 112 mcg tablet 112 mcg PO DAILY 08/05/25 10/02/25 History ibuprofen 800 mg tablet 800 mg PO TID 10/02/2510/02 History insulin aspart U-100 100 unit/mL See Rx Instructions . Route .COMPLEX 10/02/25 10/02/25 History (3 mL) subcutaneous pen (Novolog FlexPen U-100 Insulin aspart) losartan 50 mg tablet (Cozaar) 100 mg PO QDAY 10/02/25 10/02/25 History Allergies Allergies Allergy/AdvReac Type Severity Reaction Status Date / Time lisinopril Allergy Verified 10/02/25 12:17 vancomycin AdvReac Verified 10/02/25 12:17 Labs 10/03/25 04:42 10/03/25 04:42 Labs: Laboratory WBC 5.5 X10^3/uL (3.6-10.0) 10/03/25 04:42 RBC 4.65 X10^6/uL (4.7-6.0) L 10/03/25 04:42 Hgb 14.7 g/dL (13.5-18.0) 10/03/25 04:42 Hct 42.1 % (42.0-54.0) 10/03/25 04:42 MCV 90.6 fL (80.0-100.0) 10/03/25 04:42 MCH 31.6 pg (27.0-34.0) 10/03/25 04:42 MCHC 34.9 g/dL (33.0-35.0) 10/03/25 04:42 RDW 12.2 % (11.6-16.5) 10/03/25 04:42 Plt Count 310 X10^3/uL (150.0-450.0) 10/03/25 04:42 MPV 6.6 fL (7.4-11.0) L 10/03/25 04:42 Neut % (Auto) 72.7 % (42.0-75.0) 10/03/25 04:42 Lymph % (Auto) 11.8 % (21.0-51.0) L 10/03/25 04:42 [place] % (Auto) 9.2 % (0.0-13.0) 10/03/25 04:42 Eos % (Auto) 5.4 % (0.9-2.9) H 10/03/25 04:42 Baso % (Auto) 0.9 % (0.2-1.0) 10/03/25 04:42 Neut # (Auto) 4.0 x10^3/uL (2.2-4.8) 10/03/25 04:42 Lymph # (Auto) 0.6 X10^3/uL (1.3-2.9) L 10/03/25 04:42 [place] # (Auto) 0.5 x10^3/uL (0.3-0.8) 10/03/25 04:42 Eos # (Auto) 0.3 x10^3/uL (0.0-0.2) H 10/03/25 04:42 Baso # (Auto) 0.0 X10^3/uL (0.0-0.1) 10/03/25 04:42 Absolute Nucleated RBC 0.1 /100WBC 10/03/25 04:42 Sodium 139 mmol/L (136-145) 10/03/25 04:42 Corrected Sodium 140 mmol/L (136-145) 10/03/25 04:42 Potassium 4.0 mmol/L (3.5-5.1) 10/03/25 04:42 Chloride 102 mmol/L (98-107) 10/03/25 04:42 Carbon Dioxide 31.9 mmol/L (21-32) 10/03/25 04:42 BUN 13 mg/dL (7-18) 10/03/25 04:42 Creatinine 1.02 mg/dL (0.70-1.30) 10/03/25 04:42 Est GFR (MDRD) Af Amer > 60 (>60) 10/03/25 04:42 Est GFR (MDRD) Non-Af > 60 (>60) 10/03/25 04:42 Glucose 156 mg/dL (65-99) H 10/03/25 04:42 POC Glucose (mg/dL) 156 mg/dL (65-99) H 10/03/25 05:35 Lactic Acid 0.8 mmol/L (0.4-2.0) 10/02/25 12:25 Calcium 8.8 mg/dL (8.5-10.1) 10/03/25 04:42 Corrected Calcium 9.8 mg/dL (8.5-10.1) 10/03/25 04:42 Total Bilirubin 0.60 mg/dL (0.2-1.0) 10/03/25 04:42 AST 10 Units/L (15-37) L 10/03/25 04:42 ALT 11 Units/L (12-78) L 10/03/25 04:42 Alkaline Phosphatase 150 Units/L (46-116) H 10/03/25 04:42 Total Protein 7.1 g/dL (6.4-8.2) 10/03/25 04:42 Albumin 2.8 g/dL (3.4-5.0) L 10/03/25 04:42 Globulin 4.3 g/dL (2.5-4.5) 10/03/25 04:42 Albumin/Globulin Ratio 0.7 Ratio (1.1-2.1) L 10/03/25 04:42 Review of Systems Constitutional: No Symptoms Reported Eyes: No Symptoms Reported ENT: No Symptoms Reported Respiratory: No Symptoms Reported Cardiovascular: No Symptoms Reported Gastrointestinal: No Symptoms Reported Genitourinary: No Symptoms Reported Musculoskeletal: No Symptoms Reported Skin: Wound (left foot diabetic ulcer ) Neurological: No Symptoms Reported Physical Exam Vital Signs: Vital Signs Temperature 98.3 F Temperature 98.3 F Pulse Rate [Left Radial] 83 Pulse Rate [Left Radial] 73 Respiratory Rate 18 Respiratory Rate 19 Respiratory Rate 19 Blood Pressure [Right Arm] 149/88 Blood Pressure [Right Arm] 139/74 O2 Sat by Pulse Oximetry 97 O2 Sat by Pulse Oximetry 99 Oriented: Normal Eyes: Normal Ear: Normal Nose: Normal Throat: Normal Respiratory: Clear Throughout Cardiovascular: Normal : Normal Auscultation: Bowel Sounds: Normal Palpation: Normal Tenderness: Normal Skin: Normal Musculoskeletal: Left and Foot (amputated toes, diabetic ulcer with surrounding skin erythema) Psychiatric: Normal Mood Description: Calm and Appropriate Affect: Normal Speech Pattern: Clear and Appropriate Assessment/Plan (1) Foot osteomyelitis, left: Qualifiers: Osteomyelitis type: unspecified type Qualified Code(s): M86.9 - Osteomyelitis, unspecified Status: Acute (2) Cellulitis of foot, left: Status: Acute (3) Insulin dependent type 2 diabetes mellitus: Status: Chronic (4) Hypothyroidism: Qualifiers: Hypothyroidism type: acquired Qualified Code(s): E03.9 - Hypothyroidism, unspecified Status: Chronic (5) HTN (hypertension): Qualifiers: Hypertension type: primary hypertension Qualified Code(s): I10 - Essential (primary) hypertension Status: Chronic Review H&P Reviewed: Yes Patient was examined?: Yes
[2025-10-03] MEDS: STERILE WATER IRRIGATION IR ONE (14:46)
[2025-10-03] MEDS: HYDROGEN PEROXIDE 3% EXT PRN (14:47)
[2025-10-03] MEDS: SNACK - Diabetic Appropriate PO SCH (22:48)
[2025-10-04 04:50] LABS: MEAN PLATELET VOLUME 6.4 fL (7.4-11.0); RED CELL DISTRIBUTION WIDTH 12.3 % (11.6-16.5)
[2025-10-04 05:02] LABS: COR CA(FOR HYPOALB) 10.0 mg/dL (8.5-10.1); CREATININE 0.99 mg/dL (0.70-1.30); eGFR NON BLACK RACES > 60 (>60)
[2025-10-04] MEDS: LEVAQUIN PREMIX IV 750 MG 750 MG/150 ML BAG IV SCH (10:20)
[2025-10-04] MEDS: MILK OF MAGNESIA PO PRN (10:20)
--- NOTE | 2025-10-04 15:09 | NOTE.SOAP ---
Soap Note Note for Day of Date of Exam: 10/04/25 Subjective Data Subjective Data: Patient here due to osteomyelitis of the left foot secondary to Charcot arthropathy and diabetic peripheral neuropathy and angiopathy. No acute events overnight. Objective Data Objective Data: Well-developed, well-nourished male in no acute distress. Sitting up eating breakfast. Heart regular rate and rhythm, lungs clear, bowel sounds present. Does have a tracheostomy with voicebox. Mood and affect appropriate. Charcot changes to the right foot with cellulitis and clean dressing to left lower extr emity. Assessment Assessment: Left foot osteomyelitis. Cellulitis of the left lower extremity. IDDM 2. Benign essential hypertension. Plan Plan: Pending cultures. Continue IV antibiotics. PT/OT as tolerated. Appreciate surgery input. Wound care. Mild, permissive hypertension.
[2025-10-04] MEDS: ALDACTONE TAB 25 MG PO SCH (16:25)
[2025-10-04] MEDS: APRESOLINE INJ 20 MG VIAL IVP ONE (17:46)
[2025-10-05] MEDS ORDERED: D50W ABBOJECT SYR ONE (03:57)
[2025-10-05] MEDS: D50W ABBOJECT SYR IV ONE (04:00)
[2025-10-05 04:10] LABS: MEAN PLATELET VOLUME 6.3 fL (7.4-11.0); RED CELL DISTRIBUTION WIDTH 12.4 % (11.6-16.5)
[2025-10-05 04:19] LABS: COR CA(FOR HYPOALB) 10.2 mg/dL (8.5-10.1); CREATININE 0.92 mg/dL (0.70-1.30); eGFR NON BLACK RACES > 60 (>60)
[2025-10-05] MEDS: POTASSIUM CHLORIDE LIQ PO SCH (12:38)
--- NOTE | 2025-10-05 13:00 | NOTE.SOAP ---
Soap Note Note for Day of Date of Exam: 10/05/25 Subjective Data Subjective Data: Hypoglycemic overnight but doing well now. Continues to be hypertensive. Foot slightly less tender but still very sore. Once again, eaten breakfast without difficulty. Objective Data Objective Data: Well-developed, well-nourished male in no acute distress. Heart regular rate and rhythm, lungs clear. Uses tracheostomy for speech without difficulty. Bowel sounds are present and belly is soft. Mood and affect are appropriate. Clean, dry dressing to right lower extremity. Assessment Assessment: RLE/foot cellulitis Charcot arthropathy DM2 with PAD/DPN Benign essential HTN Plan Plan: Monitor sugars closely, may need to reduce Lantus dose. Less generous SSI. Continue wound care. Spironolactone added last night. Will continue to monitor vitals and labs closely. Anticipate discharge in the next 24-48 hours per surgery recommendations.
[2025-10-05] MEDS: CATAPRES TAB 0.1 MG PO ONE (17:14)
[2025-10-06] MEDS: D50W ABBOJECT SYR IV ONE (04:58)
[2025-10-06 05:05] LABS: MEAN PLATELET VOLUME 6.5 fL (7.4-11.0); RED CELL DISTRIBUTION WIDTH 12.2 % (11.6-16.5)
[2025-10-06 05:15] LABS: COR CA(FOR HYPOALB) 10.1 mg/dL (8.5-10.1); CREATININE 0.87 mg/dL (0.70-1.30); eGFR NON BLACK RACES > 60 (>60)
[2025-10-06] MEDS ORDERED: CONSULT PHARMACY - POTASSIUM & MAGNESIUM XX SCH (08:00)
[2025-10-06] MEDS: MAG-OX TAB PO SCH (09:10)
[2025-10-06] MEDS: K-DUR TAB 20 MEQ PO SCH (09:49)
[2025-10-06] MEDS: POTASSIUM CHLORIDE LIQ PO SCH (09:59)
--- NOTE | 2025-10-06 16:11 | PCM.PROG ---
Progress Note Progress Note for Day of Date of Exam: 10/06/25 Subjective Subjective: Patient seen at bedside, no acute events overnight. He did have hypoglycemia this morning. Patient has been getting Lantus 16 units and regular sliding scale insulin. Patient reports using a different sliding scale at home which works better for him. He has noted to have low glucose early in the morning. He is currently admitted for left foot osteomyelitis. He remains on IV antibiotics. Wound culture is growing Staph aureus. Patient was seen by surgery initially, no intervention recommended. Labs/imaging reviewed: - WBC 4.0 hemoglobin 12.9 creatinine 0.87 potassium 3.6 - Blood cultures negative - Wound culture Staph aureus Plan: Continue IV antibiotics and wound care. Follow surgery recommendations. Patient already has a PICC line from previous antibiotic treatment few weeks ago. Wound appears to have improved since admission. Continue home medications. Continue Lantus. Change sliding scale to NovoLog and use patient's sliding scale. Replace electrolytes as per protocol. Monitor a.m. labs and imaging. Past Medical Family Social History Allergies: Allergies lisinopril Allergy (Verified 10/02/25 12:17) vancomycin Adverse Reaction (Verified 10/02/25 12:17) Vital Signs and I&O's Vital Signs: Vital Signs Temperature 98.4 F Temperature 97.7 F Pulse Rate [Left Radial] 73 Pulse Rate [Left Radial] 75 Respiratory Rate 16 Respiratory Rate 16 Blood Pressure [Right Arm] 156/88 Blood Pressure [Right Arm] 158/74 O2 Sat by Pulse Oximetry 99 O2 Sat by Pulse Oximetry 97 Intake and Output: Intake & Output 10/03/25 10/04/25 10/05/25 10/06/25 23:59 23:59 23:59 23:59 Intake Total 1909 3324 / 3324 2424 / 2424 1396 / 1396 Balance 1909 3324 / 3324 2424 / 2424 1396 / 1396 Physical Exam Oriented: Normal Eyes: Normal Ear: Normal Nose: Normal Throat: Normal Respiratory: Normal Cardiovascular: Normal Auscultation: Bowel Sounds: Normal Palpation: Normal Tenderness: Normal Skin: Normal Musculoskeletal: Left and Foot (amputated toes, diabetic ulcer with surrounding skin erythema) Psychiatric: Normal Mood Description: Calm and Appropriate Affect: Normal Speech Pattern: Appropriate and Trach(not ventilated) Laboratory and Diagnostics 10/06/25 04:28 10/06/25 04:28 Labs: 10/02/25 12:18 Foot - Left Wound Gram Stain - Final 10/02/25 12:18 Foot - Left Wound Culture - Preliminary Staphylococcus Aureus 10/02/25 12:32 Blood Blood Culture - Preliminary 10/02/25 12:25 Blood Blood Culture - Preliminary Laboratory WBC 4.0 X10^3/uL (3.6-10.0) 10/06/25 04:28 RBC 4.13 X10^6/uL (4.7-6.0) L 10/06/25 04:28 Hgb 12.9 g/dL (13.5-18.0) L 10/06/25 04:28 Hct 37.1 % (42.0-54.0) L 10/06/25 04:28 MCV 90.0 fL (80.0-100.0) 10/06/25 04:28 MCH 31.2 pg (27.0-34.0) 10/06/25 04:28 MCHC 34.7 g/dL (33.0-35.0) 10/06/25 04:28 RDW 12.2 % (11.6-16.5) 10/06/25 04:28 Plt Count 284 X10^3/uL (150.0-450.0) 10/06/25 04:28 MPV 6.5 fL (7.4-11.0) L 10/06/25 04:28 Neut % (Auto) 51.3 % (42.0-75.0) 10/06/25 04:28 Lymph % (Auto) 30.8 % (21.0-51.0) 10/06/25 04:28 [place] % (Auto) 12.0 % (0.0-13.0) 10/06/25 04:28 Eos % (Auto) 5.6 % (0.9-2.9) H 10/06/25 04:28 Baso % (Auto) 0.3 % (0.2-1.0) 10/06/25 04:28 Neut # (Auto) 2.0 x10^3/uL (2.2-4.8) L 10/06/25 04:28 Lymph # (Auto) 1.2 X10^3/uL (1.3-2.9) L 10/06/25 04:28 [place] # (Auto) 0.5 x10^3/uL (0.3-0.8) 10/06/25 04:28 Eos # (Auto) 0.2 x10^3/uL (0.0-0.2) 10/06/25 04:28 Baso # (Auto) 0.0 X10^3/uL (0.0-0.1) 10/06/25 04:28 Absolute Nucleated RBC 0.1 /100WBC 10/06/25 04:28 Sodium 143 mmol/L (136-145) 10/06/25 04:28 Corrected Sodium TNP 10/06/25 04:28 Potassium 3.6 mmol/L (3.5-5.1) 10/06/25 04:28 Chloride 104 mmol/L (98-107) 10/06/25 04:28 Carbon Dioxide 28.4 mmol/L (21-32) 10/06/25 04:28 BUN 12 mg/dL (7-18) 10/06/25 04:28 Creatinine 0.87 mg/dL (0.70-1.30) 10/06/25 04:28 Est GFR (MDRD) Af Amer > 60 (>60) 10/06/25 04:28 Est GFR (MDRD) Non-Af > 60 (>60) 10/06/25 04:28 Glucose 47 mg/dL (65-99) L* 10/06/25 04:28 POC Glucose (mg/dL) 466 mg/dL (65-99) H 10/06/25 10:51 Lactic Acid 0.8 mmol/L (0.4-2.0) 10/02/25 12:25 Calcium 8.9 mg/dL (8.5-10.1) 10/06/25 04:28 Corrected Calcium 10.1 mg/dL (8.5-10.1) 10/06/25 04:28 Magnesium 1.9 mg/dL (2.0-2.9) L 10/06/25 04:28 Total Bilirubin 0.20 mg/dL (0.2-1.0) 10/06/25 04:28 AST 11 Units/L (15-37) L 10/06/25 04:28 ALT 11 Units/L (12-78) L 10/06/25 04:28 Alkaline Phosphatase 112 Units/L (46-116) 10/06/25 04:28 Total Protein 6.2 g/dL (6.4-8.2) L 10/06/25 04:28 Albumin 2.5 g/dL (3.4-5.0) L 10/06/25 04:28 Globulin 3.7 g/dL (2.5-4.5) 10/06/25 04:28 Albumin/Globulin Ratio 0.7 Ratio (1.1-2.1) L 10/06/25 04:28 Plan (1) Foot osteomyelitis, left: Status: Acute Qualifiers: Osteomyelitis type: unspecified type Qualified Code(s): M86.9 - Osteomyelitis, unspecified (2) Cellulitis of foot, left: Status: Acute (3) 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
--- NOTE | 2025-10-06 18:29 | NOTE.SOAP ---
Soap Note Note for Day of Date of Exam: 10/06/25 Subjective Data Subjective Data: Patient with clinical evidence of osteomyelitis left fifth toe ray amputation growing Staphylococcus aureus sensitive to clindamycin and sulfa redness improving of the left foot. Afebrile Objective Data Temperature: 98.4 F Pulse Rate: 73 Respiratory Rate: 16 Blood Pressure: 156/88 O2 Sat by Pulse Oximetry: 99 Objective Data: Redness resolved from the left foot. No significant drainage. Cultures growing Staphylococcus aureus sensitive to clindamycin and sulfa Assessment Assessment: Diabetic foot ulcer left lateral foot with osteomyelitis of left metatarsal head by imaging studies Plan Plan: Patient may be discharged home on p.o. antibiotics with plan follow-up with Dr. Polanco for surgical debridement of the fifth metatarsal head
[2025-10-07] MEDS: VISBIOME PROBIOTIC CAP 112.5 B or equivalent PO SCH (01:09)
[2025-10-07 05:42] LABS: MEAN PLATELET VOLUME 6.5 fL (7.4-11.0); RED CELL DISTRIBUTION WIDTH 12.1 % (11.6-16.5)
[2025-10-07 05:57] LABS: COR CA(FOR HYPOALB) 9.7 mg/dL (8.5-10.1); COR NA(FOR HYPERGLY) 142 mmol/L (136-145); CREATININE 0.94 mg/dL (0.70-1.30); eGFR NON BLACK RACES > 60 (>60)
[2025-10-07] MEDS ORDERED: CONSULT PHARMACY - POTASSIUM & MAGNESIUM XX SCH (07:00)
[2025-10-07 08:07] VITALS: BP 159/85; PULSE 67; RESP 16; TEMP 98.5; O2SAT 96
[2025-10-07] MEDS: MAG-OX TAB PO SCH (08:23)
[2025-10-07] MEDS: K-DUR TAB 20 MEQ PO SCH (09:22)
[2025-10-07] MEDS: KLOR-CON PO SCH (09:30)
--- NOTE | 2025-10-08 15:38 | W.DIS.FURT ---
Summary of Discharge Discharge Summary of Date Date of Exam: 10/07/25 Admission Date Date of Admission: 10/02/25 Admission Diagnosis Patient Problems (Updated 10/03/25 @ 13:31 by Dusty Aggarwal MD) Foot osteomyelitis, left (Acute) M86.9 Diabetic ulcer of left foot (Chronic) E11.621, L97.529 Status post amputation with open wound left foot. Hospital Course: Patient is a 55-year-old male with a past medical history of severe peripheral neuropathy with diabetes mellitus and Charcot foot, Osteomyelitis, Hypertension, Hypothyroidism, presenting with worsening redness and some swelling in the left foot. He recently got an MRI of the left foot that revealed persistent but decreased signal in the 2, 4, and 5 metatarsal remnants again concerning for osteomyelitis. Heterogeneous subcutaneous fluid along distal aspect of 4th and 5th metatarsal remnants without definite abscess. He reports having recently completed IV antibiotics with cefepime 2 weeks ago. Labs/imaging: WBC 5.5, hemoglobin 14.7, platelets 310, sodium 139, potassium 4.0, creatinine 1.02, glucose 156. Blood/wound culture pending. Patient was admitted for left foot cellulitis and osteomyelitis. General surgery was consulted. He was started on IV fluids and antibiotics. Cultures were collected. Surgery did not recommend any intervention at this time. Patient's wound cultures were susceptible to p.o. antibiotics. His labs are monitored daily and electrolytes replaced as needed. His diabetic ulcer improved with less redness and swelling. Patient was stable to be discharged on p.o. antibiotics. He will follow-up with Dr. Polanco outpatient. Vital Signs: Vital Signs (72 hours) 10/04/25 10:35 10/04/25 11:55 10/04/25 12:19 Temperature 97.3 F L Pulse Rate Pulse Rate [Left Radial] 73 Respiratory Rate 18 18 Blood Pressure Blood Pressure [Right Arm] 168/98 O2 Sat by Pulse Oximetry 97 Oxygen Delivery Method Room Air Room Air 10/04/25 13:19 10/04/25 15:40 10/04/25 16:02 Temperature 97.8 F Pulse Rate Pulse Rate [Left Radial] 64 Respiratory Rate 18 18 Blood Pressure Blood Pressure [Right Arm] 206/100 190/100 O2 Sat by Pulse Oximetry 100 Oxygen Delivery Method Room Air 10/04/25 17:33 10/04/25 18:38 10/04/25 19:00 Temperature Pulse Rate Pulse Rate [Left Radial] Respiratory Rate Blood Pressure Blood Pressure [Right Arm] 185/99 154/77 O2 Sat by Pulse Oximetry Oxygen Delivery Method Room Air 10/04/25 20:00 10/05/25 00:00 10/05/25 04:00 Temperature 97.7 F 97.5 F L 97.3 F L Pulse Rate Pulse Rate [Left Radial] 77 78 60 Respiratory Rate 18 18 18 Blood Pressure Blood Pressure [Right Arm] 158/82 122/70 143/79 O2 Sat by Pulse Oximetry 98 96 96 Oxygen Delivery Method Room Air Room Air Room Air 10/05/25 08:56 10/05/25 09:43 10/05/25 12:00 Temperature 98.3 F 98.8 F Pulse Rate Pulse Rate [Left Radial] 80 80 Respiratory Rate 18 18 Blood Pressure Blood Pressure [Right Arm] 173/78 190/93 O2 Sat by Pulse Oximetry 100 98 Oxygen Delivery Method Room Air Room Air Room Air 10/05/25 16:17 10/05/25 18:35 10/05/25 19:00 Temperature 98.2 F Pulse Rate Pulse Rate [Left Radial] 81 Respiratory Rate 18 Blood Pressure Blood Pressure [Right Arm] 166/92 119/76 O2 Sat by Pulse Oximetry 100 Oxygen Delivery Method Room Air Room Air 10/05/25 20:00 10/06/25 00:00 10/06/25 04:00 Temperature 98.2 F 97.9 F 97.8 F Pulse Rate Pulse Rate [Left Radial] 76 66 73 Respiratory Rate 18 18 18 Blood Pressure Blood Pressure [Right Arm] 139/79 127/71 141/82 O2 Sat by Pulse Oximetry 96 97 98 Oxygen Delivery Method Room Air Room Air Room Air 10/06/25 07:00 10/06/25 08:00 10/06/25 12:00 Temperature 98.6 F 97.7 F Pulse Rate Pulse Rate [Left Radial] 84 75 Respiratory Rate 16 16 Blood Pressure Blood Pressure [Right Arm] 152/82 158/74 O2 Sat by Pulse Oximetry 99 97 Oxygen Delivery Method Room Air Room Air Room Air 10/06/25 16:00 10/06/25 18:28 10/06/25 19:00 Temperature 98.4 F 98.4 F Pulse Rate 73 Pulse Rate [Left Radial] 73 Respiratory Rate 16 16 Blood Pressure 156/88 Blood Pressure [Right Arm] 156/88 O2 Sat by Pulse Oximetry 99 99 Oxygen Delivery Method Room Air Room Air 10/06/25 19:43 10/06/25 19:58 10/06/25 23:15 Temperature 98.1 F 97.8 F Pulse Rate Pulse Rate [Left Radial] 76 56 L Respiratory Rate 17 21 Blood Pressure Blood Pressure [Right Arm] 163/86 152/90 160/81 O2 Sat by Pulse Oximetry 99 96 Oxygen Delivery Method Room Air Room Air 10/07/25 03:52 10/07/25 07:00 10/07/25 08:00 Temperature 98.0 F 98.5 F Pulse Rate Pulse Rate [Left Radial] 58 L 67 Respiratory Rate 18 16 Blood Pressure Blood Pressure [Right Arm] 158/74 159/85 O2 Sat by Pulse Oximetry 98 96 Oxygen Delivery Method Room Air Room Air Room Air Labs: Laboratory Last Values WBC 3.8 X10^3/uL (3.6-10.0) 10/07/25 05:21 RBC 4.36 X10^6/uL (4.7-6.0) L 10/07/25 05:21 Hgb 13.5 g/dL (13.5-18.0) 10/07/25 05:21 Hct 38.8 % (42.0-54.0) L 10/07/25 05:21 MCV 88.9 fL (80.0-100.0) 10/07/25 05:21 MCH 30.9 pg (27.0-34.0) 10/07/25 05:21 MCHC 34.8 g/dL (33.0-35.0) 10/07/25 05:21 RDW 12.1 % (11.6-16.5) 10/07/25 05:21 Plt Count 275 X10^3/uL (150.0-450.0) 10/07/25 05:21 MPV 6.5 fL (7.4-11.0) L 10/07/25 05:21 Neut % (Auto) 57.8 % (42.0-75.0) 10/07/25 05:21 Lymph % (Auto) 25.5 % (21.0-51.0) 10/07/25 05:21 [place] % (Auto) 10.7 % (0.0-13.0) 10/07/25 05:21 Eos % (Auto) 4.6 % (0.9-2.9) H 10/07/25 05:21 Baso % (Auto) 1.4 % (0.2-1.0) H 10/07/25 05:21 Neut # (Auto) 2.2 x10^3/uL (2.2-4.8) 10/07/25 05:21 Lymph # (Auto) 1.0 X10^3/uL (1.3-2.9) L 10/07/25 05:21 [place] # (Auto) 0.4 x10^3/uL (0.3-0.8) 10/07/25 05:21 Eos # (Auto) 0.2 x10^3/uL (0.0-0.2) 10/07/25 05:21 Baso # (Auto) 0.1 X10^3/uL (0.0-0.1) 10/07/25 05:21 Absolute Nucleated RBC 0.1 /100WBC 10/07/25 05:21 Sodium 139 mmol/L (136-145) 10/07/25 05:21 Corrected Sodium 142 mmol/L (136-145) 10/07/25 05:21 Potassium 3.8 mmol/L (3.5-5.1) 10/07/25 05:21 Chloride 102 mmol/L (98-107) 10/07/25 05:21 Carbon Dioxide 31.8 mmol/L (21-32) 10/07/25 05:21 BUN 9 mg/dL (7-18) 10/07/25 05:21 Creatinine 0.94 mg/dL (0.70-1.30) 10/07/25 05:21 Est GFR (MDRD) Af Amer > 60 (>60) 10/07/25 05:21 Est GFR (MDRD) Non-Af > 60 (>60) 10/07/25 05:21 Glucose 211 mg/dL (65-99) H 10/07/25 05:21 POC Glucose (mg/dL) 261 mg/dL (65-99) H 10/07/25 08:04 Lactic Acid 0.8 mmol/L (0.4-2.0) 10/02/25 12:25 Calcium 8.6 mg/dL (8.5-10.1) 10/07/25 05:21 Corrected Calcium 9.7 mg/dL (8.5-10.1) 10/07/25 05:21 Magnesium 1.9 mg/dL (2.0-2.9) L 10/07/25 05:21 Total Bilirubin 0.20 mg/dL (0.2-1.0) 10/07/25 05:21 AST 11 Units/L (15-37) L 10/07/25 05:21 ALT 11 Units/L (12-78) L 10/07/25 05:21 Alkaline Phosphatase 121 Units/L (46-116) H 10/07/25 05:21 Total Protein 6.4 g/dL (6.4-8.2) 10/07/25 05:21 Albumin 2.6 g/dL (3.4-5.0) L 10/07/25 05:21 Globulin 3.8 g/dL (2.5-4.5) 10/07/25 05:21 Albumin/Globulin Ratio 0.7 Ratio (1.1-2.1) L 10/07/25 05:21 Reason For Visit: OSTEOMYELITIS FOOT, DIABETIC ULCER Discharge Diagnosis All Active Problems (Updated 10/03/25 @ 13:31 by Dusty Aggarwal MD) Cellulitis of foot, left (Acute) Foot osteomyelitis, left (Acute) Osteomyelitis (Acute) Postoperative visit (Acute) Diabetic ulcer of toe of right foot associated with diabetes mellitus due to underlying condition (Acute) Diabetic ulcer of left foot (Chronic) Left foot infection (Chronic) Status post amputation of left foot through metatarsal bone (Acute) Chronic osteomyelitis of toe of left foot (Chronic) 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 Pt is to keep follow up appointment as instructed and take medications as ordered. Discharge Medications Discharge Medications: lisinopril Allergy (Verified 10/02/25 12:17) vancomycin Adverse Reaction (Verified 10/02/25 12:17) CONTINUE taking the following medications ibuprofen 800 mg tablet 800 mg PO TID 10/02/25 [History] insulin aspart U-100 100 unit/mL (3 mL) subcutaneous pen (Novolog FlexPen U-100 Insulin aspart) See Rx Instructions .Route .COMPLEX 10/02/25 [History] losartan 50 mg tablet (Cozaar) 100 mg PO QDAY 10/02/25 [History] New Prescriptions Lactobac no.2-Bifidobac no.1-S. thermo 112.5 billion cell capsule (Visbiome) 1 cap PO BID 30 days #60 caps 10/07/25 [Rx] clindamycin HCl 300 mg capsule (Cleocin HCl) 300 mg PO BID 6 weeks #84 caps 10/07/25 [Rx] spironolactone 50 mg tablet 50 mg PO BID 30 days #60 tabs 10/07/25 [Rx] Discharge Disposition Discharge Disposition: home Discharge Condition: stable Discharge Plan Discharge Plan Hospital Course: Patient is a 55-year-old male with a past medical history of severe peripheral neuropathy with diabetes mellitus and Charcot foot, Osteomyelitis, Hypertension, Hypothyroidism, presenting with worsening redness and some swelling in the left foot. He recently got an MRI of the left foot that revealed persistent but decreased signal in the 2, 4, and 5 metatarsal remnants again concerning for osteomyelitis. Heterogeneous subcutaneous fluid along distal aspect of 4th and 5th metatarsal remnants without definite abscess. He reports having recently completed IV antibiotics with cefepime 2 weeks ago. Labs/imaging: WBC 5.5, hemoglobin 14.7, platelets 310, sodium 139, potassium 4.0, creatinine 1.02, glucose 156. Blood/wound culture pending. Patient was admitted for left foot cellulitis and osteomyelitis. General surgery was consulted. He was started on IV fluids and antibiotics. Cultures were collected. Surgery did not recommend any intervention at this time. Patient's wound cultures were susceptible to p.o. antibiotics. His labs are monitored daily and electrolytes replaced as needed. His diabetic ulcer improved with less redness and swelling. Patient was stable to be discharged on p.o. antibiotics. He will follow-up with Dr. Polanco outpatient. Patient Disposition: 01 HOME, SELF-CARE Condition: Stable Health Concerns: Post Hospitalization: new medications and changes needed to prevent readmission or further decline. Pt educated and given instructions on all concerns. Care Plan Goals: Problem: Pain/Alteration in Comfort Goal: Improve/ Resolve Pain; Achieve Pain Tolerance Instructions: Take pain medications as prescribed. Contact your primary care provider if your pain is unrelieved or worsens. Follow up with primary care provider as directed. Plan of Treatment: Continue with present treatment and follow up plan. Pt is to keep follow up appointment as instructed and take medications as ordered. Prescription drug monitoring program results: PDMP reviewed and no concerns identified Prescriptions: New Visbiome 112.5 billion cell Capsule 1 cap PO BID 30 Days Qty: 60 0RF spironolactone 50 mg tablet 50 mg PO BID 30 Days Qty: 60 0RF clindamycin HCl [Cleocin HCl] 300 mg capsule 300 mg PO BID 42 Days Qty: 84 0RF Continued levothyroxine 112 mcg tablet 112 mcg PO DAILY Patient Comments: [NO ORIGINAL SIG] losartan [Cozaar] 50 mg tablet 100 mg PO QDAY ibuprofen 800 mg tablet 800 mg PO TID insulin aspart U-100 [Novolog FlexPen U-100 Insulin] 100 unit/mL (3 mL) insulin pen See Rx Instructions .ROUTE .COMPLEX Rx Instructions: ISS NOTED ,BR carvedilol 12.5 mg tablet 12.5 mg PO BID Patient Comments: [NO ORIGINAL SIG] hydroxyzine pamoate 25 mg capsule 25 mg PO HS insulin glargine [Lantus Solostar U-100 Insulin] 100 unit/mL (3 mL) insulin pen 16 unit SUBCUT QAM Patient Comments: Pt states he is currently taking 16 units QAM, rx at pharmacy hasn't changed yet aspirin 325 mg Tablet 325 mg PO QDAY Orders to Discharge Patient Discharge Orders: Discharge (Routine); Ordered 10/07/25 Ordered By: Sanjana Patrick Follow ups/Referrals Follow ups/Referrals: XIANG PINEDA [Primary Care Provider, Unknown] - 10/15/25 10:40 am HELGA MCFARLAND [STAFF PHYSICIAN, MEDICAL] - 10/21/25 9:30 am Instructions Instructions: Bone Infection (Osteomyelitis) in Adults: What to Know, Cellulitis, Adult Stand Alone Forms: Excuse From Work or School, Find Help Web Site, Post Hospital Follow Up Care Print Language: MOZAMBICAN
== END 2025-10-07 11:45 | disposition home or self-care (01) ==
LOC: MED/SURG 11:46 → ER 11:46 → MED/SURG 14:44
PROVIDERS: ADMIT Internal Medicine; ATTEND Internal Medicine
DX: M86.172 Other acute osteomyelitis, left ankle and foot; Z98.890 Other specified postprocedural states; R68.89 Other general symptoms and signs; L97.529 Non-pressure chronic ulcer of other part of left foot with unspecified severity; L03.116 Cellulitis of left lower limb; R94.31 Abnormal electrocardiogram [ECG] [EKG]; I10 Essential (primary) hypertension; E11.40 Type 2 diabetes mellitus with diabetic neuropathy, unspecified; I73.9 Peripheral vascular disease, unspecified; Z48.00 Encounter for change or removal of nonsurgical wound dressing; E83.42 Hypomagnesemia; B95.7 Other staphylococcus as the cause of diseases classified elsewhere; R79.89 Other specified abnormal findings of blood chemistry; M14.672 Charcot's joint, left ankle and foot; Z79.4 Long term (current) use of insulin; E03.9 Hypothyroidism, unspecified; E11.621 Type 2 diabetes mellitus with foot ulcer; Z93.0 Tracheostomy status; D64.9 Anemia, unspecified